=== PATIENT | male | born 1945 ===

== ENCOUNTER 2017-09-06 14:09 | Emergency (ER) | payer MEDICARE ==
[2017-09-06 14:09] VITALS: BMI 25.8
[2017-09-06 14:43] VITALS: BP 130/71; PULSE 73; RESP 16; TEMP 97.8; O2SAT 95
--- NOTE | 2017-09-06 15:19 | ED PDOC ---
Upper Extremity Pain/Injury Time Seen by Provider: 09/06/17 14:47 Chief Complaint (Nursing): Upper Extremity Problem/Injury Chief Complaint (Provider): Shoulder Pain History Per: Patient, [place] (Carmita RN at bedside for Arabic Translation) History/Exam Limitations: no limitations Onset/Duration Of Symptoms: Days (x3) Current Symptoms Are (Timing): Still Present Additional Complaint(s): Panfilo Patricia is a 71 year old right hand dominant male, who presents to the ED complaining of right shoulder pain x3 days. Patient states his current symptoms began when he was ironing 3 days ago. He states he took Oxycodone 2 days ago with relief, but denies taking any medication today for pain. He denies any associated chest pain, SOB or NEWBY. PMD: Abdoul Ashford Past Medical History Reviewed: Historical Data, Nursing Documentation, Vital Signs Vital Signs: Last Vital Signs Temp 97.8 F 09/06/17 14:39 Pulse 73 09/06/17 14:39 Resp 16 09/06/17 14:39 BP 130/71 09/06/17 14:39 Pulse Ox 95 09/06/17 14:39 - Medical History PMH: Arthritis, CAD, Diabetes, HTN, Hypercholesterolemia, Pulmonary Embolism ( 2012) - Surgical History Surgical History: Hernia Repair, Tonsillectomy - Family History Family History: States: No Known Family Hx - Living Arrangements Living Arrangements: With Family - Social History Current smoker - smoking cessation education provided: No Alcohol: None Drugs: Denies - Home Medications Home Medications: Ambulatory Orders Medication Instructions Recorded Acetaminophen [Tylenol 325mg tab] 650 mg PO Q4 PRN 10/07/15 Enoxaparin [Lovenox] 80 mg SQ Q12 10/07/15 Insulin Lispro [humALOG] 100 units SC ACHS 10/07/15 Lactated Ringer's 1,000 ml IV .Q10H 10/07/15 oxyCODONE/Acetaminophen [Percocet 1 tab PO Q6 PRN 10/07/15 5/325 mg Tab] Atorvastatin [Lipitor] 20 mg PO HS #0 tab 10/16/15 Gabapentin [Neurontin] 300 mg PO BID #0 cap 10/16/15 Losartan [Cozaar] 100 mg PO DAILY #0 tab 10/16/15 Metoprolol Tartrate [Lopressor] 25 mg PO Q12 #0 tab 02/06/16 Sertraline [Zoloft] 100 mg PO DAILY #0 tab 10/16/15 Warfarin [Coumadin] 3 mg PO DAILY #0 tab 10/16/15 metFORMIN [glucOPHAGE] 500 mg PO DAILY #0 tab 10/16/15 oxyCODONE/Acetaminophen [Percocet 1 tab PO Q6 PRN #0 tab 10/16/15 5/325 mg Tab] Dicyclomine [Bentyl] 20 mg PO TID #21 tab 11/30/15 Ondansetron ODT [Zofran ODT] 4 mg PO Q8 PRN #10 odt 11/30/15 Meclizine [Antivert] 50 mg PO BID #30 tab 07/21/16 Methylprednisolone [Medrol Dose 4 mg PO DAILY #21 mg 10/04/16 Pack (21 tabs)] Cyclobenzaprine [Cyclobenzaprine 10 mg PO TID PRN #15 tab 09/06/17 HCl] - Allergies Allergies/Adverse Reactions: Allergies Allergy/AdvReac Type Severity Reaction Status Date / Time Penicillins Allergy RASH Verified 10/07/15 15:13 Review of Systems ROS Statement: Except As Marked, All Systems Reviewed And Found Negative Constitutional: Negative for: Fever Cardiovascular: Negative for: Chest Pain Respiratory: Negative for: Cough Gastrointestinal: Negative for: Nausea, Vomiting Musculoskeletal: Positive for: Shoulder Pain (right) Physical Exam - Reviewed Nursing Documentation Reviewed: Yes Vital Signs Reviewed: Yes - Physical Exam Appears: Positive for: Non-toxic, No Acute Distress Head Exam: Positive for: ATRAUMATIC Skin: Positive for: Normal Color, Warm. Negative for: Rash Eye Exam: Positive for: Normal appearance Neck: Positive for: Normal, Painless ROM Cardiovascular/Chest: Positive for: Regular Rate, Rhythm Respiratory: Positive for: Normal Breath Sounds. 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 Sling applied to right arm. Patient has oxycodone at home. Rx given for flexeril. Patient was referred to ortho concert pianist for follow up. Scribe Attestation: Documented by Eyad Clemens, acting as a scribe for Bernie Chandler PA-C Provider Scribe Attestation: All medical record entries made by the Scribe were at my direction and personally dictated by me. I have reviewed the chart and agree that the record accurately reflects my personal performance of the history, physical exam, medical decision making, and the department course for this patient. I have also personally directed, reviewed, and agree with the discharge instructions and disposition. Procedures - Splinting Location: right arm Pre-Made Type: sling Pre-Proc Neuro Vasc Exam: normal Post-Proc Neuro Vasc Exam: normal Disposition - Clinical Impression Clinical Impression: Shoulder strain - Patient ED Disposition Is Patient to be Admitted: No Counseled Patient/Family Regarding: Studies Performed, Diagnosis, Need For Followup, Rx Given - Disposition Referrals: Austin Canchola MD [Staff Provider] - Abdoul Ashford MD [Staff Provider] - Disposition: Routine/Home Disposition Time: 16:28 Condition: STABLE Additional Instructions: Take oxycodone for severe pain, tylenol for mild to moderate pain. Take rx med as directed. Ice affected area. Follow up with primary care doctor or with orthopedist for any persistent symptoms. Prescriptions: Cyclobenzaprine [Cyclobenzaprine HCl] 10 mg PO TID PRN #15 tab PRN Reason: Muscle Pain Instructions: Shoulder Sprain (ED) Forms: [facility] (Arabic) Print Language: MALAY
--- NOTE | 2017-09-06 16:18 | RAD ---
PROCEDURE: Radiographs of the Right Shoulder HISTORY: trauma COMPARISON: Right shoulder radiographs dated 08/30/2015 FINDINGS: BONES: No fracture. JOINTS: Acromioclavicular degenerative changes. SOFT TISSUES: Normal. OTHER FINDINGS: None. IMPRESSION: No demonstrated fracture or dislocation. Degenerative changes.
== END 2017-09-06 17:55 | disposition home or self-care (01) ==
LOC: H.ER 14:09
DX: S46.911A Strain of unspecified muscle, fascia and tendon at shoulder and upper arm level, right arm, initial encounter (principal); X50.9XXA Other and unspecified overexertion or strenuous movements or postures, initial encounter; Y92.89 Other specified places as the place of occurrence of the external cause; I10 Essential (primary) hypertension; I25.10 Atherosclerotic heart disease of native coronary artery without angina pectoris; Z79.01 Long term (current) use of anticoagulants; Z79.4 Long term (current) use of insulin; Z86.711 Personal history of pulmonary embolism; E78.00 Pure hypercholesterolemia, unspecified; E11.9 Type 2 diabetes mellitus without complications; Z88.0 Allergy status to penicillin

== ENCOUNTER 2018-03-08 03:36 | Observation (INO) | payer MEDICARE ==
[2018-03-08 03:37] VITALS: BMI 25.8
[2018-03-08 04:11] LABS: BASO # 0.1 K/uL (0.0-0.2); BASO % 0.6 % (0.0-2.0); EOS # 0.4 K/uL (0.0-0.7); EOS % 4.1 % (0.0-4.0); HEMOGLOBIN 13.7 g/dL (12.0-18.0); LYMPH # 3.2 K/uL (1.0-4.3); LYMPH % 33.9 % (20.0-40.0); MEAN CELL VOLUME 87.7 fl (80.0-94.0); MEAN CORPUSCULAR HEMOGLOBIN 29.9 pg (27.0-31.0); MEAN CORPUSCULAR HGB CONC 34.1 g/dL (33.0-37.0); MEAN PLATELET VOLUME 8.2 fl (7.2-11.7); MONO # 0.7 K/uL (0.0-0.8); MONO % 7.8 % (0.0-10.0); NEUT % 53.6 % (50.0-75.0); NRBC % 0.1 % (0.0-0.0); RBC 4.57 Mil/uL (4.40-5.90); RED CELL DISTRIBUTION WIDTH 13.4 % (11.5-14.5); WHITE BLOOD COUNT 9.4 K/uL (4.8-10.8)
[2018-03-08] MEDS ORDERED: Sodium Chloride 0.9% 1,000 ML IV STA (04:25)
[2018-03-08 04:26] LABS: BLOOD UREA NITROGEN 20 mg/dl (9-20); CALCIUM 8.9 mg/dL (8.4-10.2); GFR NON-AFRICAN AMERICAN > 60
--- NOTE | 2018-03-08 04:31 | ED PDOC ---
HPI: Headache Time Seen by Provider: 03/08/18 03:42 Chief Complaint (Nursing): Headache Chief Complaint (Provider): Headache History Per: Patient History/Exam Limitations: no limitations Onset/Duration Of Symptoms: Days (1) Current Symptoms Are (Timing): Better Additional Complaint(s): 72 years old male with history of diabetes, hypertension and pulmonary embolism presents to the ED with multiple complaints. Patient reports experiencing gradual onset of palpitations, shortness of breath and mild, non thunderclap headache yesterday. He reports feeling chest pain earlier today but states it is resolved since then. Patient believes symptoms are related to running out of his diabetes and hypertension medications. He reports feeling dizziness that he describes as light headedness. PMD: Abdoul Ashford Past Medical History Reviewed: Historical Data, Nursing Documentation, Vital Signs Vital Signs: Last Vital Signs Temp 98 F 03/08/18 03:47 Pulse 70 03/08/18 03:47 Resp 16 03/08/18 03:47 BP 135/73 03/08/18 03:47 Pulse Ox 100 03/08/18 03:47 - Medical History PMH: Arthritis, CAD, Diabetes, HTN, Hypercholesterolemia, Pulmonary Embolism ( 2012) Denies: HIV, Chronic Kidney Disease - Surgical History Surgical History: Hernia Repair, Tonsillectomy - Family History Family History: States: Unknown Family Hx - Social History Current smoker - smoking cessation education provided: No Alcohol: None Drugs: Denies - Home Medications Home Medications: Ambulatory Orders Medication Instructions Recorded Acetaminophen [Tylenol 325mg tab] 650 mg PO Q4 PRN 10/07/15 oxyCODONE/Acetaminophen [Percocet 1 tab PO Q6 PRN 10/07/15 5/325 mg Tab] Atorvastatin [Lipitor] 20 mg PO HS #0 tab 10/16/15 Gabapentin [Neurontin] 300 mg PO BID #0 cap 10/16/15 Losartan [Cozaar] 100 mg PO DAILY #0 tab 10/16/15 Metoprolol Tartrate [Lopressor] 25 mg PO Q12 #0 tab 10/16/15 Sertraline [Zoloft] 100 mg PO DAILY #0 tab 10/16/15 Warfarin [Coumadin] 3 mg PO DAILY #0 tab 10/16/15 metFORMIN [glucOPHAGE] 500 mg PO DAILY #0 tab 10/16/15 tiZANidine [Zanaflex] 4 mg PO DAILY 03/08/18 traMADol [Ultram] 50 mg PO Q6 PRN 03/08/18 - Allergies Allergies/Adverse Reactions: Allergies Allergy/AdvReac Type Severity Reaction Status Date / Time Penicillins Allergy RASH Verified 10/07/15 15:13 Review of Systems ROS Statement: Except As Marked, All Systems Reviewed And Found Negative Cardiovascular: Positive for: Chest Pain, Palpitations, Light Headedness Respiratory: Positive for: Shortness of Breath Neurological: Positive for: Headache (mild), Dizziness Physical Exam - Reviewed Nursing Documentation Reviewed: Yes Vital Signs Reviewed: Yes - Physical Exam Appears: Positive for: Non-toxic, No Acute Distress Head Exam: Positive for: ATRAUMATIC, NORMOCEPHALIC Skin: Positive for: Normal Color, Warm, Dry Eye Exam: Positive for: Normal appearance, EOMI, PERRL ENT: Positive for: Normal ENT Inspection Neck: Positive for: Normal, Painless ROM Cardiovascular/Chest: Positive for: Regular Rate, Rhythm. Negative for: Murmur Respiratory: Positive for: Normal Breath Sounds. Negative for: Respiratory Distress Gastrointestinal/Abdominal: Positive for: Normal Exam, Soft. Negative for: Tenderness Back: Positive for: Normal Inspection Extremity: Positive for: Normal ROM. Negative for: Tenderness Neurologic/Psych: Positive for: Alert, Oriented. Negative for: Motor/Sensory Deficits, Aphasia, Facial Droop - Laboratory Results Result Diagrams: 03/08/18 04:07 03/08/18 04:07 - ECG ECG: Positive for: Interpreted By Me, Viewed By Me ECG Rhythm: Positive for: Normal QRS, Normal ST Segment, Sinus Bradycardia O2 Sat by Pulse Oximetry: 100 (RA) Pulse Ox Interpretation: Normal Medical Decision Making Medical Decision Making: A/P: History of diabetes, HTN and PE presents with resolved chest pain, dizziness and palpitations --Given age and history, differential includes ACS vs electrolyte imbalance vs dehydration vs anxiety --Will order blood work, EKG and chest x-ray --Reevaluation 5AM Workup so far negative, however given age and risk factors, will admit for r/o ACS. ASA given. Will require continuous cardiac monitoring and serial troponins. Case discussed with family practice resident Dr. Barlow. Scribe Attestation: Documented by Rut Angeles, acting as a scribe for Earnest Mata MD. Provider Scribe Attestation: All medical record entries made by the Scribe were at my direction and personally dictated by me. I have reviewed the chart and agree that the record accurately reflects my personal performance of the history, physical exam, medical decision making, and the department course for this patient. I have also personally directed, reviewed, and agree with the discharge instructions and disposition. Disposition - Clinical Impression Clinical Impression: Chest pain - Patient ED Disposition Is Patient to be Admitted: Yes - Disposition Disposition Time: 05:00 Condition: FAIR Forms: [employer] ([place]orese)
[2018-03-08 04:32] LABS: B-TYPE NATRIURETIC PEPTIDE 298 pg/ml (0-900)
[2018-03-08 04:44] LABS: INR 1.2 (0.9-1.2); PARTIAL THROMBOPLASTIN TIME 30.8 Seconds (25.6-37.1); PROTHROMBIN TIME 13.6 Seconds (9.8-13.1)
[2018-03-08 05:44] LABS: URINE BILIRUBIN NEGATIVE (NEGATIVE); URINE BLOOD SMALL (NEGATIVE); URINE CLARITY SLIGHTY-CLOUDY (Clear); URINE COLOR YELLOW (YELLOW); URINE GLUCOSE (UA) NEG (Normal); URINE LEUKOCYTE ESTERASE NEG Leu/uL (Negative); URINE PROTEIN NEGATIVE (NEGATIVE); URINE UROBILINOGEN 0.2-1.0 mg/dL (0.2-1.0)
--- NOTE | 2018-03-08 08:12 | RAD ---
PROCEDURE: CHEST RADIOGRAPH, 1 VIEW HISTORY: palpitations COMPARISON: Chest radiographs 07/21/2016. FINDINGS: LUNGS: No acute cardiopulmonary disease appreciated. PLEURA: No pneumothorax or pleural fluid seen. CARDIOVASCULAR: Normal. OSSEOUS STRUCTURES: No significant abnormalities. VISUALIZED UPPER ABDOMEN: Normal. OTHER FINDINGS: None. IMPRESSION: No interval acute cardiopulmonary disease appreciated.
[2018-03-08] MEDS ORDERED: Potassium Chloride 20 mEq ER Tab PO ONE (08:32)
--- NOTE | 2018-03-08 08:50 | CP.PCM.HP ---
<Madhu Hancock - Last Filed: 03/08/18 12:26> History of Present Illness - History of Present Illness History of Present Illness: This is 72 y/o male with PMH of PE s/p IVC in 2013, HTN, HLD, DMII and depression admitted to [facility] for evaluation and treatment of headache and chest pain. Patient reports chronic headache on and off since last 3 months, but constant since last 3 days, Diffuse pain, 7/10 severity, non radiating, and associated with nausea. Patient took some tylenol but helped for few hours.( Patient reports minor head trauma at home a week ago). Chest pain is intermittent since last 3 months, non radiating, 5/10, changes with respiration. Patient denies any current SOB, Dizziness, blurred vision, palpitations, weakness, or urinary symptoms. Patient reports he is on warfarin but ran out of his meds this week. [employer]# [id number] PMD: [facility] PMH:PE s/p IVC in 2013, HTN, HLD, DMII and depression PSH: IVC filter 2013, Cataracts 2012, Inguinal hernia repair 2006, Left total hip replacement 2015 Allg: Penicillin (Rash) Meds: See med recs SH: Social alcohol use, denies smoking or illicit drug use FH: Positive for DM, HTN and colon cancer ROS: As per HPI ED Course: VS:Tm 98, HR 70, BP 135/75, Sat 100% RA CBC: WNL CMP: Significant for K+ 3.3 PT/INR/PTT: 13.6/30.8/1.2 Troponin negative x 1 Pro BNP 298, wnl UA: Small urine blood, 5 RBC EKG: Sinus Hiram, Occasional PVC CXR: No acute disease S/p Aspirin, Toradol, and IVF Present on Admission - Present on Admission Any Indicators Present on Admission: No History of DVT/PE: Yes History of Uncontrolled Diabetes: No Urinary Catheter: No Decubitus Ulcer Present: No Past Patient History - Infectious Disease Hx of Infectious Diseases: None - Past Medical History & Family History Past Medical History?: Yes - Past Social History Alcohol: None Drugs: Denies - CARDIAC Hx Hypercholesterolemia: Yes Hx Hypertension: Yes - PULMONARY Hx Pulmonary Embolism: Yes (2012) - NEUROLOGICAL Hx Neurological Disorder: No - HEENT Hx HEENT Problems: Yes Hx Cataracts: Yes - RENAL Hx Chronic Kidney Disease: No - ENDOCRINE/METABOLIC Hx Endocrine Disorders: Yes Hx Diabetes Mellitus Type 2: Yes - HEMATOLOGICAL/ONCOLOGICAL Hx Human Immunodeficiency Virus (HIV): No - INTEGUMENTARY Hx Dermatological Problems: No - MUSCULOSKELETAL/RHEUMATOLOGICAL Hx Arthritis: Yes - GASTROINTESTINAL Hx Gastrointestinal Disorders: No - GENITOURINARY/GYNECOLOGICAL Hx Genitourinary Disorders: Yes Hx Prostate Problems: Yes (Prostate Surgery 1998) Other/Comment: Syphillis - when he was 12 yrs old. - PSYCHIATRIC Hx Psychophysiologic Disorder: No Hx Substance Use: No - SURGICAL HISTORY Hx Tonsillectomy: Yes - ANESTHESIA Hx Anesthesia: Yes Hx Anesthesia Reactions: No Hx Malignant Hyperthermia: No Meds Allergies/Adverse Reactions: Allergies Allergy/AdvReac Type Severity Reaction Status Date / Time Penicillins Allergy RASH Verified 10/07/15 15:13 Physical Exam - Constitutional Appears: No Acute Distress - Head Exam Head Exam: NORMAL INSPECTION - Eye Exam Eye Exam: EOMI, Normal appearance, PERRL Pupil Exam: NORMAL ACCOMODATION - ENT Exam ENT Exam: Mucous Membranes Moist - Neck Exam Neck exam: Positive for: Normal Inspection - Respiratory Exam Respiratory Exam: Clear to Auscultation Bilateral, NORMAL BREATHING PATTERN - Cardiovascular Exam Cardiovascular Exam: REGULAR RHYTHM, +S1, +S2 - GI/Abdominal Exam GI & Abdominal Exam: Normal Bowel Sounds, Soft. absent: Hernia, Tenderness - Extremities Exam Extremities exam: Positive for: normal inspection. Negative for: normal capillary refill - Back Exam Back exam: NORMAL INSPECTION. absent: CVA tenderness (L), CVA tenderness (R) - Neurological Exam Neurological exam: Alert, CN II-XII Intact, Oriented x3, Reflexes Normal - Psychiatric Exam Psychiatric exam: Anxious - Skin Skin Exam: Cyanosis, Dry, Intact, Normal Color, Warm Results - Vital Signs Recent Vital Signs: Last Vital Signs Temp 98 F 03/08/18 03:47 Pulse 56 L 03/08/18 05:45 Resp 19 03/08/18 05:45 BP 139/68 03/08/18 05:45 Pulse Ox 100 03/08/18 05:45 - Labs Result Diagrams: 03/08/18 04:07 03/08/18 04:07 Labs: Laboratory Results - last 24 hr 03/08/18 03/08/18 03/08/18 04:04 04:07 04:07 WBC 9.4 D RBC 4.57 Hgb 13.7 Hct 40.1 MCV 87.7 MCH 29.9 MCHC 34.1 RDW 13.4 Plt Count 198 MPV 8.2 Neut % (Auto) 53.6 Lymph % (Auto) 33.9 [place] % (Auto) 7.8 Eos % (Auto) 4.1 H Baso % (Auto) 0.6 Neut # (Auto) 5.0 Lymph # (Auto) 3.2 [place] # (Auto) 0.7 Eos # (Auto) 0.4 Baso # (Auto) 0.1 PT INR APTT Sodium 144 Potassium 3.3 L Chloride 109 H Carbon Dioxide 26 Anion Gap 12 BUN 20 Creatinine 0.8 Est GFR ( Amer) > 60 Est GFR (Non-Af Amer) > 60 POC Glucose (mg/dL) 134 H Random Glucose 136 H Calcium 8.9 Troponin I 0.0320 NT-Pro-B Natriuret Pep 298 Urine Color Urine Clarity Urine pH Ur Specific [place] Urine Protein Urine Glucose (UA) Urine Ketones Urine Blood Urine Nitrate Urine Bilirubin Urine Urobilinogen Ur Leukocyte Esterase Urine RBC (Auto) Urine Microscopic WBC 03/08/18 03/08/18 04:07 05:18 WBC RBC Hgb Hct MCV MCH MCHC RDW Plt Count MPV Neut % (Auto) Lymph % (Auto) [place] % (Auto) Eos % (Auto) Baso % (Auto) Neut # (Auto) Lymph # (Auto) [place] # (Auto) Eos # (Auto) Baso # (Auto) PT 13.6 H INR 1.2 APTT 30.8 Sodium Potassium Chloride Carbon Dioxide Anion Gap BUN Creatinine Est GFR ( Amer) Est GFR (Non-Af Amer) POC Glucose (mg/dL) Random Glucose Calcium Troponin I NT-Pro-B Natriuret Pep Urine Color Yellow Urine Clarity Slighty-cloudy Urine pH 5.0 Ur Specific [place] 1.024 Urine Protein Negative Urine Glucose (UA) Neg Urine Ketones Negative Urine Blood Small Urine Nitrate Negative Urine Bilirubin Negative Urine Urobilinogen 0.2-1.0 Ur Leukocyte Esterase Neg Urine RBC (Auto) 5 H Urine Microscopic WBC 1 Assessment & Plan - Assessment and Plan (Free Text) Assessment: 72 y/o male with PMH of PE s/p IVC in 2013, HTN, HLD, DMII and depression admitted to [facility] for evaluation and treatment of chronic headache and chest pain. Chest pain, R/o ACS vs PE - Follow up repeat EKG - Follow up next 2 troponin - Follow up CTA to r/o any PE, hx of PE, IVC F, didn't take warfarin this week Headache - Possiblly tension headache vs trigeminal neuralgia vs Cluster headache ( History of minor head trauma) - CT Head w/o Cont to r/o any acute vs chronic changes - Follow up ESR History of PE, S/p IVC 2013 - PT/INR/PTT: 13.6/30.8/1.2 - Home med Warfarin 3mg PO (Patient is not cleared if he took his warfarin this week) - C/w Lovenox 75mg SC Q12H - C/w Warfarin 3mg daily - F/u PT/INR tomorrow HTN - Chronic, Controlled - C/w home meds: Metoprolol 25mg Q12, Losartan 100mg daily HLD - Lipitor 20 daily Pre-diabetes - Metformin 500mg daily, held due to imaging work up Hx of Depression - Zoloft 100mg daily DVT PPx - History of PE - C/w Lovenox 75mg SC Q12H - C/w Warfarin 3mg daily - F/u PT/INR tomorrow <Mayte Amador - Last Filed: 03/08/18 13:05> Results - Vital Signs Recent Vital Signs: Last Vital Signs Temp 97.6 F 03/08/18 12:50 Pulse 55 L 03/08/18 12:50 Resp 18 03/08/18 12:50 BP 136/78 03/08/18 12:50 Pulse Ox 97 03/08/18 12:50 - Labs Result Diagrams: 03/08/18 04:07 03/08/18 04:07 Labs: Laboratory Results - last 24 hr 03/08/18 03/08/18 03/08/18 04:04 04:07 04:07 WBC 9.4 D RBC 4.57 Hgb 13.7 Hct 40.1 MCV 87.7 MCH 29.9 MCHC 34.1 RDW 13.4 Plt Count 198 MPV 8.2 Neut % (Auto) 53.6 Lymph % (Auto) 33.9 [place] % (Auto) 7.8 Eos % (Auto) 4.1 H Baso % (Auto) 0.6 Neut # (Auto) 5.0 Lymph # (Auto) 3.2 [place] # (Auto) 0.7 Eos # (Auto) 0.4 Baso # (Auto) 0.1 ESR PT INR APTT Sodium 144 Potassium 3.3 L Chloride 109 H Carbon Dioxide 26 Anion Gap 12 BUN 20 Creatinine 0.8 Est GFR ( Amer) > 60 Est GFR (Non-Af Amer) > 60 POC Glucose (mg/dL) 134 H Random Glucose 136 H Calcium 8.9 Troponin I 0.0320 NT-Pro-B Natriuret Pep 298 Urine Color Urine Clarity Urine pH Ur Specific [place] Urine Protein Urine Glucose (UA) Urine Ketones Urine Blood Urine Nitrate Urine Bilirubin Urine Urobilinogen Ur Leukocyte Esterase Urine RBC (Auto) Urine Microscopic WBC 03/08/18 03/08/18 03/08/18 04:07 05:18 11:54 WBC RBC Hgb Hct MCV MCH MCHC RDW Plt Count MPV Neut % (Auto) Lymph % (Auto) [place] % (Auto) Eos % (Auto) Baso % (Auto) Neut # (Auto) Lymph # (Auto) [place] # (Auto) Eos # (Auto) Baso # (Auto) ESR PT 13.6 H INR 1.2 APTT 30.8 Sodium Potassium Chloride Carbon Dioxide Anion Gap BUN Creatinine Est GFR ( Amer) Est GFR (Non-Af Amer) POC Glucose (mg/dL) Random Glucose Calcium Troponin I 0.0260 NT-Pro-B Natriuret Pep Urine Color Yellow Urine Clarity Slighty-cloudy Urine pH 5.0 Ur Specific [place] 1.024 Urine Protein Negative Urine Glucose (UA) Neg Urine Ketones Negative Urine Blood Small Urine Nitrate Negative Urine Bilirubin Negative Urine Urobilinogen 0.2-1.0 Ur Leukocyte Esterase Neg Urine RBC (Auto) 5 H Urine Microscopic WBC 1 03/08/18 11:54 WBC RBC Hgb Hct MCV MCH MCHC RDW Plt Count MPV Neut % (Auto) Lymph % (Auto) [place] % (Auto) Eos % (Auto) Baso % (Auto) Neut # (Auto) Lymph # (Auto) [place] # (Auto) Eos # (Auto) Baso # (Auto) ESR 11 PT INR APTT Sodium Potassium Chloride Carbon Dioxide Anion Gap BUN Creatinine Est GFR ( Amer) Est GFR (Non-Af Amer) POC Glucose (mg/dL) Random Glucose Calcium Troponin I NT-Pro-B Natriuret Pep Urine Color Urine Clarity Urine pH Ur Specific [place] Urine Protein Urine Glucose (UA) Urine Ketones Urine Blood Urine Nitrate Urine Bilirubin Urine Urobilinogen Ur Leukocyte Esterase Urine RBC (Auto) Urine Microscopic WBC Attending/Attestation - Attestation I have personally seen and examined this patient.: Yes I have fully participated in the care of the patient.: Yes I have reviewed all pertinent clinical information: Yes Notes (Text): 03/08/18 13:03 Attending Note ATTESTATION Patient seen and examined. Case discussed with the resident. Agree with findings and plan. PEÑA 3 months, worse past 3 days. Head trauma [address] r/ o sdh, mass, ESR consider temporal arteritis. Chest CTA r/o PE - hx of same off warfarin for a few days.
[2018-03-08] MEDS: Enoxaparin 80 mg Syringe SC SCH ×2 (10:59→21:39)
[2018-03-08] MEDS ORDERED: Sodium Chloride 0.9% 500 ML IV SCH (11:15)
[2018-03-08] MEDS ORDERED: Sodium Chloride 0.9% 50 ML IV ONE (12:14)
[2018-03-08] MEDS ORDERED: Iodixanol 320 MG/ML 100 ML BOTTLE IV ONE (12:14)
--- NOTE | 2018-03-08 13:10 | CT ---
PROCEDURE: CT HEAD WITHOUT CONTRAST. HISTORY: Headache COMPARISON: 07/21/2016. TECHNIQUE: Axial computed tomography images were obtained through the head/brain without intravenous contrast. Radiation dose: Total exam DLP = 858.84 mGy-cm. This CT exam was performed using one or more of the following dose reduction techniques: Automated exposure control, adjustment of the mA and/or kV according to patient size, and/or use of iterative reconstruction technique. FINDINGS: HEMORRHAGE: No intracranial hemorrhage. BRAIN: There are mild chronic microangiopathic changes. There is no mass, mass effect or abnormal extra-axial fluid collection. VENTRICLES: There is mild age-related global parenchymal volume loss and proportionate enlargement of the ventricles and cortical sulci. CALVARIUM: The skull base and calvarium are normal. PARANASAL SINUSES: There is moderate mucoperiosteal thickening in the paranasal sinuses, worse in the ethmoid sinuses. MASTOID AIR CELLS: Predominantly clear. OTHER FINDINGS: None. IMPRESSION: No acute intracranial abnormality. Mild chronic microangiopathic changes and mild age-related global parenchymal volume loss. Chronic pansinusitis, worse in the ethmoid air cells.
--- NOTE | 2018-03-08 14:08 | CT ---
PROCEDURE: CT Chest with contrast (Pulmonary Angiogram) HISTORY: Chest pain, Hx of PE, S/p IVC. Not on warfarin COMPARISON: Noncontrast chest CT 02/15/2015. TECHNIQUE: Axial computed tomography images were obtained of the chest in the pulmonary arterial phase of enhancement. Coronal and sagittal reformatted images were created and reviewed. Intravenous contrast dose: Visipaque 320, 90.3 cc. Radiation dose: Total exam DLP = 398.39 mGy-cm. This CT exam was performed using one or more of the following dose reduction techniques: Automated exposure control, adjustment of the mA and/or kV according to patient size, and/or use of iterative reconstruction technique. FINDINGS: PULMONARY ARTERIES: Unremarkable. No pulmonary embolism. AORTA: No acute findings. No thoracic aortic aneurysm. LUNGS: Minimal posterior right apical fibrosis reiterated. No definitive mass or airspace disease. Central airways are clear as well. Stable elevated left hemidiaphragm. PLEURAL SPACES: Unremarkable. No effusion or pneuomothorax. HEART: The thoracic inlet appears unremarkable. Borderline cardiomegaly. No significant pericardial effusion. LYMPH NODES: No lymphadenopathy. BONES, CHEST WALL: Unremarkable. No fracture or destructive lesion OTHER FINDINGS: Multiple left renal cysts including 8.3 cm upper midpole left renal cyst incompletely captured in this examination. IMPRESSION: 1. No evidence of pulmonary pulmonary embolus as discussed above. 2. Chronic fibrosis minimally noted posterior right apex. 3. No acute infiltrate, pleural or pericardial effusion. Borderline cardiomegaly noted.
[2018-03-08] MEDS ORDERED: Pneumococcal 23-Valent Vaccine IM ONE (16:56)
[2018-03-08] MEDS ORDERED: Enoxaparin 40 mg Syringe SC SCH (22:00)
[2018-03-09 07:11] LABS: BASO % 0.5 % (0.0-2.0); EOS # 0.4 K/uL (0.0-0.7); EOS % 6.4 % (0.0-4.0); HEMOGLOBIN 14.1 g/dL (12.0-18.0); LYMPH # 2.4 K/uL (1.0-4.3); LYMPH % 38.7 % (20.0-40.0); MEAN CELL VOLUME 88.4 fl (80.0-94.0); MEAN CORPUSCULAR HGB CONC 33.9 g/dL (33.0-37.0); MEAN PLATELET VOLUME 8.6 fl (7.2-11.7); MONO # 0.5 K/uL (0.0-0.8); MONO % 8.8 % (0.0-10.0); NEUT # 2.8 K/uL (1.8-7.0); NEUT % 45.6 % (50.0-75.0); NRBC % 0.1 % (0.0-0.0); RBC 4.7 Mil/uL (4.40-5.90); RED CELL DISTRIBUTION WIDTH 13.3 % (11.5-14.5); WHITE BLOOD COUNT 6.1 K/uL (4.8-10.8)
[2018-03-09 07:27] LABS: PROTHROMBIN TIME 13.7 Seconds (9.8-13.1)
[2018-03-09 07:28] LABS: INR 1.2 (0.9-1.2); PARTIAL THROMBOPLASTIN TIME 37.7 Seconds (25.6-37.1)
[2018-03-09 07:39] LABS: BLOOD UREA NITROGEN 19 mg/dl (9-20); CALCIUM 8.9 mg/dL (8.4-10.2); GFR NON-AFRICAN AMERICAN > 60
--- NOTE | 2018-03-09 07:44 | CP.PCM.PN ---
<Madhu Hancock - Last Filed: 03/09/18 11:51> Subjective - Date & Time of Evaluation Date of Evaluation: 03/09/18 Time of Evaluation: 07:00 - Subjective Subjective: Patient seen and examined this morning at bedside, NAD. Patient reports no headache this morning, last night he was given tylenol for headache and its completely resolved. Denies any chest pain this morning. Patient is tolerating PO, ambulating, denies any dizziness, SOB, abdominal pain, urinary symptoms or weakness. Objective - Vital Signs/Intake and Output Vital Signs (last 24 hours): Temp Pulse Resp BP Pulse Ox 97.5 F L 60 16 142/73 99 03/09/18 05:00 03/09/18 05:00 03/09/18 05:00 03/09/18 05:00 03/09/18 05:00 - Medications Medications: Current Medications Atorvastatin Calcium (Lipitor) 20 mg PO HS [facility] Last Admin: 03/08/18 21:37 Dose: 20 mg Enoxaparin Sodium (Lovenox) 75 mg SC Q12 [facility] PRN Reason: Protocol Last Admin: 03/08/18 21:39 Dose: 75 mg Gabapentin (Neurontin) 300 mg PO BID [facility] Last Admin: 03/08/18 18:55 Dose: 300 mg Sodium Chloride (Sodium Chloride 0.9%) 500 mls @ 999 mls/hr IV .Q31M [facility] Last Admin: 03/08/18 11:40 Dose: 999 mls/hr Losartan Potassium (Cozaar) 100 mg PO DAILY [facility] Last Admin: 03/08/18 10:59 Dose: 100 mg Metformin HCl (Glucophage) 500 mg PO DAILY [facility] Last Admin: 03/08/18 09:12 Dose: 500 mg Metoprolol Tartrate (Lopressor) 25 mg PO Q12 [facility] Last Admin: 03/08/18 21:37 Dose: 25 mg Sertraline HCl (Zoloft) 100 mg PO DAILY [facility] Last Admin: 03/08/18 10:58 Dose: 100 mg Warfarin Sodium (Coumadin) 3 mg PO HS [facility] PRN Reason: Protocol Last Admin: 03/08/18 21:36 Dose: 3 mg - Labs Labs: 03/09/18 06:30 03/09/18 06:30 PT 13.7 Seconds (9.8-13.1) H 03/09/18 06:30 INR 1.2 (0.9-1.2) 03/09/18 06:30 APTT 37.7 Seconds (25.6-37.1) H D 03/09/18 06:30 - Constitutional Appears: No Acute Distress - Head Exam Head Exam: NORMAL INSPECTION - Eye Exam Eye Exam: Normal appearance, PERRL Pupil Exam: NORMAL ACCOMODATION - ENT Exam ENT Exam: Mucous Membranes Moist - Respiratory Exam Respiratory Exam: Clear to Ausculation Bilateral, NORMAL BREATHING PATTERN - Cardiovascular Exam Cardiovascular Exam: REGULAR RHYTHM, +S1, +S2 - GI/Abdominal Exam GI & Abdominal Exam: Soft, Normal Bowel Sounds - Extremities Exam Extremities Exam: Normal Capillary Refill, Normal Inspection - Back Exam Back Exam: NORMAL INSPECTION. absent: CVA tenderness (L), CVA tenderness (R) - Neurological Exam Neurological Exam: Alert, Awake, CN II-XII Intact, Oriented x3 - Psychiatric Exam Psychiatric exam: Normal Affect - Skin Skin Exam: Normal Color Assessment and Plan - Assessment and Plan (Free Text) Assessment: 72 y/o male with PMH of PE s/p IVC in 2013, HTN, HLD, DMII and depression admitted to [facility] for evaluation and treatment of chronic headache and chest pain. Chest pain, Non-cardiac - Repeat EKG reviewed, no changes from previous EKG - Negative troponin x3 - CTA reviewed, no PE or acute changes Headache - Possiblly tension headache vs trigeminal neuralgia vs Cluster headache ( History of minor head trauma) - CT Head w/o Cont; no acute findings or bleeding - ESR: 11 History of PE, S/p IVC 2013 - PT/INR/PTT: 13.6/30.8/1.2 on admission - Home med Warfarin 3mg PO (Patient is not cleared if he took his warfarin this week) - C/w Lovenox 75mg SC Q12H - Warfarin 3mg daily changed today to 7.5mg this evening - F/u PT/INR tomorrow HTN - Chronic, Controlled - C/w home meds: Metoprolol 25mg Q12, Losartan 100mg daily HLD - Lipitor 20 daily Pre-diabetes - Metformin 500mg daily Hx of Depression - Zoloft 100mg daily DVT PPx - History of PE - C/w Lovenox 75mg SC Q12H - C/w Warfarin 7.5mg this evening - F/u PT/INR tomorrow <Mayte Amador - Last Filed: 03/10/18 08:31> Objective - Vital Signs/Intake and Output Vital Signs (last 24 hours): Temp Pulse Resp BP Pulse Ox 97.3 F L 62 20 144/75 99 03/10/18 08:00 03/10/18 08:00 03/10/18 08:00 03/10/18 08:00 03/10/18 08:00 - Medications Medications: Current Medications Al Hydrox/Mg Hydrox/Simethicone (Maalox Plus 30 Ml) 30 ml PO Q4 PRN PRN Reason: Indigestion / Heartburn Last Admin: 03/09/18 19:00 Dose: 30 ml Atorvastatin Calcium (Lipitor) 20 mg PO HS [facility] Last Admin: 03/09/18 21:39 Dose: 20 mg Enoxaparin Sodium (Lovenox) 75 mg SC Q12 [facility] PRN Reason: Protocol Last Admin: 03/09/18 20:34 Dose: 75 mg Gabapentin (Neurontin) 300 mg PO BID [facility] Last Admin: 03/09/18 16:28 Dose: 300 mg Losartan Potassium (Cozaar) 100 mg PO DAILY [facility] Last Admin: 03/09/18 09:08 Dose: 100 mg Metformin HCl (Glucophage) 500 mg PO DAILY [facility] Last Admin: 03/09/18 09:06 Dose: 500 mg Metoprolol Tartrate (Lopressor) 25 mg PO Q12 [facility] Last Admin: 03/09/18 20:35 Dose: 25 mg Sertraline HCl (Zoloft) 100 mg PO DAILY [facility] Last Admin: 03/09/18 09:06 Dose: 100 mg Warfarin Sodium (Coumadin) 7.5 mg PO QD5 [facility] PRN Reason: Protocol Last Admin: 03/09/18 17:59 Dose: 7.5 mg - Labs Labs: 03/10/18 06:20 03/10/18 06:20 PT 15.9 Seconds (9.8-13.1) H 03/10/18 06:20 INR 1.4 (0.9-1.2) H 03/10/18 06:20 APTT 39.4 Seconds (25.6-37.1) H 03/10/18 06:20 Attending/Attestation - Attestation I have personally seen and examined this patient.: Yes I have fully participated in the care of the patient.: Yes I have reviewed all pertinent clinical information, including history, physical exam and plan: Yes
[2018-03-09] MEDS: Enoxaparin 80 mg Syringe SC SCH ×2 (09:07→20:34)
--- NOTE | 2018-03-09 12:55 | CARD ---
APPROVED REPORT EKG Measurement Heart [id number] [place] [id number] <Conclusion> Sinus bradycardia with occasional premature ventricular complexes Otherwise normal ECG
--- NOTE | 2018-03-09 12:59 | CARD ---
APPROVED REPORT EKG Measurement Heart [id number] [place] [id number] [id number] <Conclusion> Normal sinus rhythm Normal ECG
--- NOTE | 2018-03-09 16:12 | CP.PCM.PCO ---
Physician Communication Note - Physician Communication Note Physician Communication Note: Paged by nurse patient had chest pain that lasted 20 seconds, vitals stable Assessment/Plan - Assessment and Plan (Free Text) Assessment: Patient seen walking around the hallway with his . Accompanied patient back to his room, patient reports the chest pain was in the epigastric area radiating to the left, recurrent, intermittent. Usually occurs after eating or when he hasn't gone to the gym for a few days. Denies chest pain, nausea, vomiting, diarrhea, weakness or dizziness. monitoring specialist with normal sinus rhythm at rate 69 bpm, no ST-T changes. -physical exam: -General: in zenon cute distress, ambulating without difficulty, AAO x 3 -Cardiac: normal S1 S2, no murmurs/rubs/gallops -Lungs: clear to auscultation -Abd: normal bowel sounds, no distention or tenderness to palpation Plan: -ordered serial troponin -Maalox 30ml PRN - Date & Time Date: 03/09/18 Time: 16:16
[2018-03-09] MEDS: Alum-Mag Hydrox-Simethicone Susp (30 mL) PO PRN (19:00)
[2018-03-10 07:10] LABS: BASO % 0.5 % (0.0-2.0); EOS # 0.4 K/uL (0.0-0.7); EOS % 6.3 % (0.0-4.0); HEMOGLOBIN 14.1 g/dL (12.0-18.0); LYMPH # 2.6 K/uL (1.0-4.3); LYMPH % 40.5 % (20.0-40.0); MEAN CELL VOLUME 88.5 fl (80.0-94.0); MEAN CORPUSCULAR HEMOGLOBIN 29.8 pg (27.0-31.0); MEAN CORPUSCULAR HGB CONC 33.7 g/dL (33.0-37.0); MEAN PLATELET VOLUME 8.7 fl (7.2-11.7); MONO # 0.6 K/uL (0.0-0.8); MONO % 8.8 % (0.0-10.0); NEUT # 2.8 K/uL (1.8-7.0); NEUT % 43.9 % (50.0-75.0); RBC 4.73 Mil/uL (4.40-5.90); RED CELL DISTRIBUTION WIDTH 13.3 % (11.5-14.5); WHITE BLOOD COUNT 6.5 K/uL (4.8-10.8)
[2018-03-10 07:23] LABS: BLOOD UREA NITROGEN 16 mg/dl (9-20); CALCIUM 8.8 mg/dL (8.4-10.2); GFR NON-AFRICAN AMERICAN > 60
[2018-03-10 07:42] LABS: INR 1.4 (0.9-1.2); PARTIAL THROMBOPLASTIN TIME 39.4 Seconds (25.6-37.1); PROTHROMBIN TIME 15.9 Seconds (9.8-13.1)
--- NOTE | 2018-03-10 08:44 | CP.PCM.PN ---
<Janeenheidi RamosLuisito - Last Filed: 03/10/18 12:43> Subjective - Date & Time of Evaluation Date of Evaluation: 03/10/18 Time of Evaluation: 08:41 - Subjective Subjective: Patient seen and examined at bedside this morning, patient reports feeling better, NAD, denies chest pain, headache, palpitations, nausea, weakness, abdominal pain, no urinary symptoms or SOB. Nursing notes reviewed and found patient with episodic bradycadia down to HR thirties while sleeping, HR this morning 54 and asymptomatic. Patient is tolerating PO and ambulating. Objective - Vital Signs/Intake and Output Vital Signs (last 24 hours): Temp Pulse Resp BP Pulse Ox 97.3 F L 62 20 144/75 99 03/10/18 08:00 03/10/18 08:00 03/10/18 08:00 03/10/18 08:00 03/10/18 08:00 - Medications Medications: Current Medications Al Hydrox/Mg Hydrox/Simethicone (Maalox Plus 30 Ml) 30 ml PO Q4 PRN PRN Reason: Indigestion / Heartburn Last Admin: 03/09/18 19:00 Dose: 30 ml Atorvastatin Calcium (Lipitor) 20 mg PO HS [facility] Last Admin: 03/09/18 21:39 Dose: 20 mg Enoxaparin Sodium (Lovenox) 75 mg SC Q12 [facility] PRN Reason: Protocol Last Admin: 03/09/18 20:34 Dose: 75 mg Gabapentin (Neurontin) 300 mg PO BID [facility] Last Admin: 03/09/18 16:28 Dose: 300 mg Losartan Potassium (Cozaar) 100 mg PO DAILY [facility] Last Admin: 03/09/18 09:08 Dose: 100 mg Metformin HCl (Glucophage) 500 mg PO DAILY [facility] Last Admin: 03/09/18 09:06 Dose: 500 mg Metoprolol Tartrate (Lopressor) 25 mg PO Q12 [facility] Last Admin: 03/09/18 20:35 Dose: 25 mg Sertraline HCl (Zoloft) 100 mg PO DAILY [facility] Last Admin: 03/09/18 09:06 Dose: 100 mg Warfarin Sodium (Coumadin) 7.5 mg PO QD5 [facility] PRN Reason: Protocol Last Admin: 03/09/18 17:59 Dose: 7.5 mg - Labs Labs: 03/10/18 06:20 03/10/18 06:20 PT 15.9 Seconds (9.8-13.1) H 03/10/18 06:20 INR 1.4 (0.9-1.2) H 03/10/18 06:20 APTT 39.4 Seconds (25.6-37.1) H 03/10/18 06:20 - Constitutional Appears: Well, No Acute Distress - Head Exam Head Exam: NORMOCEPHALIC - Eye Exam Eye Exam: EOMI, Normal appearance Pupil Exam: PERRL - ENT Exam ENT Exam: Mucous Membranes Moist, Normal Exam - Neck Exam Neck Exam: Full ROM, Normal Inspection - Respiratory Exam Respiratory Exam: Clear to Ausculation Bilateral, NORMAL BREATHING PATTERN - Cardiovascular Exam Cardiovascular Exam: REGULAR RHYTHM, +S1, +S2. absent: JVD, Rubs, Murmur - GI/Abdominal Exam GI & Abdominal Exam: Normal Bowel Sounds. absent: Tenderness - Extremities Exam Extremities Exam: Normal Inspection - Skin Skin Exam: Normal Color. absent: Pallor Assessment and Plan - Assessment and Plan (Free Text) Assessment: 72 y/o male with PMH of PE s/p IVC in 2013, HTN, HLD, DMII and depression admitted with cc: headache and chest pain, found to have subtherapeutic INR after several day of coumadin non-adherence. Plan: Subtherapeutic INR -Hx of DVT, PE, and IVC filter - INR today 1.4 - Home med Warfarin 3mg PO, patient states he did not take his warfarin for few days at home - Warfarin dose increased yesterday to 7.5mg to reach theraputic INR - C/w Lovenox 75mg SC Q12H while bridging to warfarin - Will F/u PT/INR tomorrow Chest pain, Non-cardiac -resolved - Repeat EKG reviewed. - Negative troponin x3 - CTA reviewed, no PE or acute changes Headache -resolved - Possiblly tension headache vs trigeminal neuralgia vs Cluster headache - CT Head w/o Cont; no acute findings or bleeding - ESR: 11 Bradycardia -Possibly caused by Metoprolol 25 PO bid for HTN, BP controlled, will decrease Metoprolol to 25 QD in AM. -continue monitoring HTN - Chronic, Controlled - C/w home meds: Metoprolol 25mg QD in AM, Losartan 100mg daily HLD - Lipitor 20 daily Pre-diabetes - Metformin 500mg daily Hx of Depression - Zoloft 100mg daily DVT PPx/Hx of PE - C/w Lovenox 75mg SC Q12H - C/w Warfarin 7.5mg - F/u PT/INR tomorrow <Mayte Amador - Last Filed: 03/11/18 08:12> Objective - Vital Signs/Intake and Output Vital Signs (last 24 hours): Temp Pulse Resp BP Pulse Ox 97.5 F L 62 18 155/70 H 100 03/11/18 04:48 03/11/18 04:48 03/11/18 04:48 03/11/18 04:48 03/11/18 04:48 - Medications Medications: Current Medications Al Hydrox/Mg Hydrox/Simethicone (Maalox Plus 30 Ml) 30 ml PO Q4 PRN PRN Reason: Indigestion / Heartburn Last Admin: 03/10/18 09:06 Dose: 30 ml Atorvastatin Calcium (Lipitor) 20 mg PO HS [facility] Last Admin: 03/10/18 21:06 Dose: 20 mg Enoxaparin Sodium (Lovenox) 75 mg SC Q12 [facility] PRN Reason: Protocol Last Admin: 03/10/18 21:05 Dose: 75 mg Gabapentin (Neurontin) 300 mg PO BID [facility] Last Admin: 03/10/18 17:51 Dose: 300 mg Losartan Potassium (Cozaar) 100 mg PO DAILY [facility] Last Admin: 03/10/18 09:03 Dose: 100 mg Metformin HCl (Glucophage) 500 mg PO DAILY [facility] Last Admin: 03/10/18 09:04 Dose: 500 mg Metoprolol Tartrate (Lopressor) 25 mg PO DAILY [facility] Sertraline HCl (Zoloft) 100 mg PO DAILY [facility] Last Admin: 03/10/18 09:05 Dose: 100 mg Warfarin Sodium (Coumadin) 7.5 mg PO QD5 [facility] PRN Reason: Protocol Last Admin: 03/10/18 17:12 Dose: 7.5 mg - Labs Labs: 03/10/18 06:20 03/10/18 06:20 PT 26.4 Seconds (9.8-13.1) H D 03/11/18 04:20 INR 2.3 (0.9-1.2) H D 03/11/18 04:20 APTT 39.4 Seconds (25.6-37.1) H 03/10/18 06:20 Attending/Attestation - Attestation I have personally seen and examined this patient.: Yes I have fully participated in the care of the patient.: Yes I have reviewed all pertinent clinical information, including history, physical exam and plan: Yes Notes (Text): 03/11/18 08:11 Patient seen and examined. No complaints this AM. Continue lovenox and warfarin. Not therapeutic as yet on warfarin.
[2018-03-10] MEDS: Enoxaparin 80 mg Syringe SC SCH ×2 (09:05→21:05)
[2018-03-10] MEDS: Alum-Mag Hydrox-Simethicone Susp (30 mL) PO PRN (09:06)
[2018-03-11 06:03] LABS: INR 2.3 (0.9-1.2); PROTHROMBIN TIME 26.4 Seconds (9.8-13.1)
[2018-03-11 08:18] VITALS: RESP 20; O2SAT 95
[2018-03-11] MEDS: Enoxaparin 80 mg Syringe SC SCH (09:11)
[2018-03-11 12:31] VITALS: BP 147/63; PULSE 72; TEMP 98.2
--- NOTE | 2018-03-11 14:49 | CP.PCM.DIS ---
Provider - Provider Date of Admission: 03/08/18 05:07 Attending physician: Isela Beltran MD Primary care physician: Abdoul Ashford MD Time Spent in preparation of Discharge (in minutes): 35 Diagnosis - Discharge Diagnosis (1) Subtherapeutic international normalized ratio (INR) Status: Acute Hospital Course - Lab Results Lab Results: Most Recent Lab Values WBC 6.5 K/uL (4.8-10.8) 03/10/18 06:20 RBC 4.73 Mil/uL (4.40-5.90) 03/10/18 06:20 Hgb 14.1 g/dL (12.0-18.0) 03/10/18 06:20 Hct 41.9 % (35.0-51.0) 03/10/18 06:20 MCV 88.5 fl (80.0-94.0) 03/10/18 06:20 MCH 29.8 pg (27.0-31.0) 03/10/18 06:20 MCHC 33.7 g/dL (33.0-37.0) 03/10/18 06:20 RDW 13.3 % (11.5-14.5) 03/10/18 06:20 Plt Count 193 K/uL (130-400) 03/10/18 06:20 MPV 8.7 fl (7.2-11.7) 03/10/18 06:20 Neut % (Auto) 43.9 % (50.0-75.0) L 03/10/18 06:20 Lymph % (Auto) 40.5 % (20.0-40.0) H 03/10/18 06:20 [place] % (Auto) 8.8 % (0.0-10.0) 03/10/18 06:20 Eos % (Auto) 6.3 % (0.0-4.0) H 03/10/18 06:20 Baso % (Auto) 0.5 % (0.0-2.0) 03/10/18 06:20 Neut # (Auto) 2.8 K/uL (1.8-7.0) 03/10/18 06:20 Lymph # (Auto) 2.6 K/uL (1.0-4.3) 03/10/18 06:20 [place] # (Auto) 0.6 K/uL (0.0-0.8) 03/10/18 06:20 Eos # (Auto) 0.4 K/uL (0.0-0.7) 03/10/18 06:20 Baso # (Auto) 0.0 K/uL (0.0-0.2) 03/10/18 06:20 ESR 11 mm/hr (0-20) 03/08/18 11:54 PT 26.4 Seconds (9.8-13.1) H D 03/11/18 04:20 INR 2.3 (0.9-1.2) H D 03/11/18 04:20 APTT 39.4 Seconds (25.6-37.1) H 03/10/18 06:20 Sodium 142 mmol/l (132-148) 03/10/18 06:20 Potassium 4.4 MMOL/L (3.6-5.0) 03/10/18 06:20 Chloride 105 mmol/L (98-107) 03/10/18 06:20 Carbon Dioxide 27 mmol/L (22-30) 03/10/18 06:20 Anion Gap 14 (10-20) 03/10/18 06:20 BUN 16 mg/dl (9-20) 03/10/18 06:20 Creatinine 0.7 mg/dl (0.8-1.5) L 03/10/18 06:20 Est GFR ( Amer) > 60 03/10/18 06:20 Est GFR (Non-Af Amer) > 60 03/10/18 06:20 POC Glucose (mg/dL) 120 mg/dL (65-110) H 03/11/18 11:18 Random Glucose 99 mg/dL (75-110) 03/10/18 06:20 Calcium 8.8 mg/dL (8.4-10.2) 03/10/18 06:20 Troponin I 0.0320 ng/mL (0.00-0.120) 03/10/18 00:43 NT-Pro-B Natriuret Pep 298 pg/ml (0-900) 03/08/18 04:07 Urine Color Yellow (YELLOW) 03/08/18 05:18 Urine Clarity Slighty-cloudy (Clear) 03/08/18 05:18 Urine pH 5.0 (5.0-8.0) 03/08/18 05:18 Ur Specific [place] 1.024 (1.003-1.030) 03/08/18 05:18 Urine Protein Negative mg/dL (NEGATIVE) 03/08/18 05:18 Urine Glucose (UA) Neg mg/dL (Normal) 03/08/18 05:18 Urine Ketones Negative mg/dL (NEGATIVE) 03/08/18 05:18 Urine Blood Small (NEGATIVE) 03/08/18 05:18 Urine Nitrate Negative (NEGATIVE) 03/08/18 05:18 Urine Bilirubin Negative (NEGATIVE) 03/08/18 05:18 Urine Urobilinogen 0.2-1.0 mg/dL (0.2-1.0) 03/08/18 05:18 Ur Leukocyte Esterase Neg [place]/uL (Negative) 03/08/18 05:18 Urine RBC (Auto) 5 /hpf (0-3) H 03/08/18 05:18 Urine Microscopic WBC 1 /hpf (0-5) 03/08/18 05:18 - Hospital Course Hospital Course: 72 yo male admitted on 03/08/18 with c/o headache and chest pain, during the ED and hospital course EKG, cardiac enzymes, CTA, CT of head was wnl, patient was found to have subtherapeutic INR due to non-adherence taking warfarin. Patient had an uneventful hospital stay, today he denies headache, chest pain, SOB, palpitations or weakness. Due to subtherapeutic INR, warfarin was resumed 7.5mg PO QD and bridging with lovenox 75 mg sc BID until reaching today therapeutic INR of 2.3, patient's HR during hospital stay has been bradycaric in the 54 to 56's, metoprolol modified to 12.5 mg po bid. Patient today instructed on the importance of medication compliance and f/u of INR level after Dc home and orde given to check INR before appoiment, will DC home on warfarin 3 mg PO QD and will f/u appoinment with at 11AM on sunday. Discharge Exam - Head Exam Head Exam: NORMOCEPHALIC - Eye Exam Eye Exam: EOMI, PERRL - Neck Exam Neck exam: Full Rom, Normal Inspection - Respiratory Exam Respiratory Exam: Clear to PA & Lateral. absent: Rales, Rhonchi, Wheezes - Cardiovascular Exam Cardiovascular Exam: REGULAR RHYTHM, +S1, +S2. absent: JVD - GI/Abdominal Exam GI & Abdominal Exam: Normal Bowel Sounds, Soft. absent: Organomegaly, Tenderness - Neurological Exam Neurological exam: Alert, Normal Gait, Oriented x3 - Psychiatric Exam Psychiatric exam: Normal Affect, Normal Mood - Skin Skin Exam: Dry, Normal Color, Warm Discharge Plan - Follow Up Plan Condition: STABLE Disposition: HOME/ ROUTINE Instructions: Palpitations (DC) Additional Instructions: follow up with your primary doctor in 1 week appt scheduled with Dr. Rueda at 11am on 03/18/2018 go for PT/INR blood check the morning of appointment take medications as prescribed any signs of bleeding/palpitations return to ED for evaluation Referrals: Abdoul Ashford MD [Primary Care Provider] -
== END 2018-03-11 14:00 | disposition home or self-care (01) ==
LOC: H.ER 03:36 → OBSVTOIN 05:07 → INTOOBSV 05:07 → H.ERHOLD 05:07 → H.TEL 11:25
PROVIDERS: ADMIT Family Medicine Geriatric Medicine; ATTEND Family Medicine Geriatric Medicine
DX: R79.1 Abnormal coagulation profile (principal); R07.9 Chest pain, unspecified; I10 Essential (primary) hypertension; Z86.711 Personal history of pulmonary embolism; F32.9 Major depressive disorder, single episode, unspecified; Z96.642 Presence of left artificial hip joint; Z88.0 Allergy status to penicillin; G44.209 Tension-type headache, unspecified, not intractable; Z79.01 Long term (current) use of anticoagulants; Z79.84 Long term (current) use of oral hypoglycemic drugs; Z79.899 Other long term (current) drug therapy; R73.03 Prediabetes; I25.10 Atherosclerotic heart disease of native coronary artery without angina pectoris; E78.5 Hyperlipidemia, unspecified
CPT/HCPCS: 36415; 70450; 71045; 71275; 80048; 81003; 82948; 83880; 84484; 85025; 85610; 85651; 85730; 90732; 93005; 96361; 96372; 96374; 99285; G0009; G0378; J1650; J1885; J7030; J7040; Q9967

== ENCOUNTER 2018-04-18 22:09 | Observation (INO) | payer MEDICARE ==
[2018-04-18 22:09] VITALS: BMI 25.8
[2018-04-18] MEDS ORDERED: Tdap Vaccine 0.5 ml Vial (10-64 yrs) IM ONE ×2 (23:05→23:12)
[2018-04-18] MEDS ORDERED: Liquid Adhesive TOP STA (23:06)
--- NOTE | 2018-04-18 23:09 | ED PDOC ---
Syncope/Near Syncope/Dizziness Time Seen by Provider: 04/18/18 22:28 Chief Complaint (Nursing): Trauma Chief Complaint (Provider): Facial injury History Per: Patient, Birth Attendant (Gavin #[id number] (Daryn Nelson)) History/Exam Limitations: language barrier Additional Complaint(s): Pt states he finished vacuuming when he felt dizzy and fell onto vacuum hitting the R side of his face/eye, now c/o dizziness and PEÑA, no LOC. Denies CP, SOB, palpitations, nausea, vomiting. Also c/o R foot pain X 1 month, intermittent swelling. Unsure of tetanus status. Past Medical History Reviewed: Nursing Documentation, Vital Signs Vital Signs: Last Vital Signs Temp 98.1 F 04/18/18 22:18 Pulse 74 04/18/18 22:18 Resp 16 04/18/18 22:18 BP 140/80 04/18/18 22:18 Pulse Ox 95 04/18/18 22:18 - Medical History PMH: Arthritis, CAD, Diabetes, HTN, Hypercholesterolemia, Pulmonary Embolism ( 2012) Denies: HIV, Chronic Kidney Disease - Surgical History Surgical History: Hernia Repair, Tonsillectomy - Family History Family History: States: Unknown Family Hx - Living Arrangements Living Arrangements: With Family - Social History Current smoker - smoking cessation education provided: No Alcohol: None - Home Medications Home Medications: Ambulatory Orders Medication Instructions Recorded Atorvastatin [Lipitor] 20 mg PO HS #0 tab 10/16/15 Gabapentin [Neurontin] 300 mg PO BID #0 cap 10/16/15 Losartan [Cozaar] 100 mg PO DAILY #0 tab 10/16/15 Metoprolol Tartrate [Lopressor] 25 mg PO Q12 #0 tab 10/16/15 Sertraline [Zoloft] 100 mg PO DAILY #0 tab 10/16/15 Warfarin [Coumadin] 3 mg PO DAILY #0 tab 10/16/15 metFORMIN [glucOPHAGE] 500 mg PO DAILY #0 tab 10/16/15 - Allergies Allergies/Adverse Reactions: Allergies Allergy/AdvReac Type Severity Reaction Status Date / Time Penicillins Allergy RASH Verified 04/18/18 22:17 Review of Systems Constitutional: Negative for: Fever, Chills Eyes: Negative for: Vision Change Cardiovascular: Negative for: Chest Pain, Palpitations Respiratory: Negative for: Cough, Shortness of Breath Gastrointestinal: Negative for: Nausea, Vomiting, Abdominal Pain, Diarrhea Genitourinary Male: Negative for: Dysuria, Hematuria Skin: Positive for: Other (Facial laceration). Negative for: Rash, Lesions Neurological: Positive for: Headache, Dizziness. Negative for: Weakness, Numbness, Incoordination, Change in Speech, Confusion, Seizures, Altered Mental Status Physical Exam - Reviewed Nursing Documentation Reviewed: Yes Vital Signs Reviewed: Yes - Physical Exam Appears: Positive for: Well, No Acute Distress Head Exam: Positive for: ATRAUMATIC, NORMAL INSPECTION Skin: Positive for: Normal Color, Warm, Dry Eye Exam: Positive for: EOMI, PERRL, Periorbital swelling, Conjunctival injection, Other (Inferior orbital ecchymosis, 0.75 cm linear laceration, + bleeding, orbital crepitus, no deformity) Neck: Positive for: Normal, Painless ROM, Supple Cardiovascular/Chest: Positive for: Regular Rate, Rhythm Respiratory: Positive for: Normal Breath Sounds. Negative for: Rales, Rhonchi, Wheezing Gastrointestinal/Abdominal: Positive for: Normal Exam Back: Positive for: Normal Inspection Extremity: Positive for: Normal ROM, Other (R FOOT: TTP) Neurologic/Psych: Positive for: Alert, elevator conductor II-XII, Oriented. Negative for: Motor/Sensory Deficits, Aphasia, Facial Droop - Laboratory Results Result Diagrams: 04/18/18 23:32 04/18/18 23:32 - ECG O2 Sat by Pulse Oximetry: 95 Medical Decision Making Medical Decision Makin yo male with near syncope, facial laceration and PEÑA. - labs - EKG - CXR - XR R foot - CT head - CT facial bones - Adacel Disposition - Clinical Impression Clinical Impression: Near syncope - Patient ED Disposition Is Patient to be Admitted: Transfer of Care - Disposition Disposition: Transfer of Care Disposition Time: 00:00 Condition: FAIR Patient Signed Over To: Alex Louie Procedure: Wound Repair - Time Performed Time Performed: 22:50 - Time Out Time Out: Side verified - Consent Obtained Consent obtained: Verbal - Performed by Performed by: Attending Physician - Location Location:: Face - Debris Debris:: None - Complexity Complexity:: Simple (one layer) - Wound repair method Rafael:: Tissue glue - Patient tolerated procedure Patient Tolerated Procedure:: Well
[2018-04-18 23:36] LABS: BASO # 0.1 K/uL (0.0-0.2); BASO % 0.7 % (0.0-2.0); EOS # 0.4 K/uL (0.0-0.7); EOS % 4.9 % (0.0-4.0); HEMOGLOBIN 14.8 g/dL (12.0-18.0); LYMPH # 3.2 K/uL (1.0-4.3); LYMPH % 36.5 % (20.0-40.0); MEAN CELL VOLUME 87.2 fl (80.0-94.0); MEAN CORPUSCULAR HEMOGLOBIN 30.3 pg (27.0-31.0); MEAN CORPUSCULAR HGB CONC 34.7 g/dL (33.0-37.0); MEAN PLATELET VOLUME 8.1 fl (7.2-11.7); MONO # 0.8 K/uL (0.0-0.8); MONO % 8.7 % (0.0-10.0); NEUT # 4.4 K/uL (1.8-7.0); NEUT % 49.2 % (50.0-75.0); RBC 4.9 Mil/uL (4.40-5.90); RED CELL DISTRIBUTION WIDTH 13.3 % (11.5-14.5); WHITE BLOOD COUNT 8.9 K/uL (4.8-10.8)
[2018-04-18 23:43] LABS: INR 2.7; PROTHROMBIN TIME 30.1 Seconds (9.8-13.1); URINE BACTERIA RARE (<OCC); URINE BILIRUBIN NEGATIVE (NEGATIVE); URINE BLOOD NEGATIVE (NEGATIVE); URINE CLARITY SLIGHTY-CLOUDY (Clear); URINE COLOR YELLOW (YELLOW); URINE GLUCOSE (UA) NEG (Normal); URINE LEUKOCYTE ESTERASE NEG Leu/uL (Negative); URINE PROTEIN NEGATIVE (NEGATIVE)
[2018-04-18 23:46] LABS: PARTIAL THROMBOPLASTIN TIME 47.4 Seconds (25.6-37.1)
[2018-04-18 23:53] LABS: ALB/GLOB RATIO 1.4 (1.0-2.1); ALBUMIN 4.4 g/dL (3.5-5.0); ALT/SGPT 41 U/L (21-72); AST/SGOT 30 U/L (17-59); BLOOD UREA NITROGEN 26 mg/dl (9-20); CALCIUM 9.4 mg/dL (8.4-10.2); GFR AFRICAN-AMERICAN > 60; GFR NON-AFRICAN AMERICAN > 60
--- NOTE | 2018-04-19 00:08 | ED PDOC ---
- Laboratory Results Result Diagrams: 04/18/18 23:32 04/18/18 23:32 - ECG O2 Sat by Pulse Oximetry: 95 (RA) Pulse Ox Interpretation: Normal Medical Decision Making Medical Decision Making: Time: 00:00 --Patient endorsed to this provider by Dr. Da Silva, pending CT and reevaluation. Time: 00:[address] FINDINGS: Brain: [id number] atrophy. No intracranial hemorrhage. No mass. Minimal decreased attenuation within periventricular white matter. No edema. Ventricles: No hydrocephalus. Bones/joints: No calvarial fracture. Soft tissues: Unremarkable. Vasculature: Mild atherosclerotic disease of intracranial arteries. Mastoid air cells: No significant effusion. IMPRESSION: 1. No intracranial hemorrhage. 2. Nonspecific white matter changes. 3. See facial bone CT report for additional details. 4. Incidental/non-acute findings are described above. Time: 00:28 CT Maxillofacial Without Intravenous Contrast FINDINGS: Bones/joints: Degenerative changes of cervical spine. No acute fracture. Soft tissues: Dermal calcifications. Orbits: Unremarkable as visualized. Sinuses: Extensive mucosal thickening of ethmoid sinuses. [id number] mucosal thickening of maxillary, sphenoid sinuses. Mild mucosal thickening of frontal sinuses. No air- fluid levels. Dental: Periapical lucency compatible with dental disease. IMPRESSION: 1. No fracture. 2. Sinus disease. 3. Incidental/non-acute findings are described above. Time: 00:35 --Case discussed with Dr. Perez, admitting resident. Diagnosis near syncope. Scribe Attestation: Documented by Missy Lopez, acting as a scribe for Alex Louie MD Provider Scribe Attestation: All medical record entries made by the Scribe were at my direction and personally dictated by me. I have reviewed the chart and agree that the record accurately reflects my personal performance of the history, physical exam, medical decision making, and the department course for this patient. I have also personally directed, reviewed, and agree with the discharge instructions and disposition. Disposition - Clinical Impression Clinical Impression: Near syncope - POA Present On Arrival: Falls Or Trauma - Disposition Disposition: Hospitalized as Observation Patient Disposition Time: 00:35 Condition: FAIR
[2018-04-19] MEDS ORDERED: Sodium Chloride 0.9% 1,000 ML IV SCH ×2 (03:00)
--- NOTE | 2018-04-19 03:05 | CP.PCM.HP ---
Addendum entered and electronically signed by Sisi Gunter MD 04/19/18 14:46 : I saw and evaluated the patient. I discussed the case with the resident and agree with the findings and plan as documented in the resident's note. Patient feeling well, denies any dizzyness or lightheadedness prior to the fall. Head CT and maxillofacial CT negative. R foto xray negative, patient able to ambulate and bear weight on R side. INR therapeutic. Continue current dose of coumadin 3 mg, lab slip printed to complete INR in one week. Patient has appt to followup with PMD. Further ER precautions provided, if any lightheaded, dizzyness, headaches, blurry vision, bleeding, patient advised to report to the ER. Cold compresses to bruising, dermabond applied. Stable for discharge home, patient has all home medications. Counseled to avoid any nsaid use. Addendum entered and electronically signed by Martha Valentin MD 04/19/18 10 :38: Patient seen and examined at bedside with attending Dr. Gunter. Patient is in no acute distress, is tolerating PO diet, has normal urine output. Denies chest pain, dizziness, weakness or headaches. PE: AAO x3, BP 151/78 mmHg, P 69, O2 sat 98% on room air HEENT: right periorbital ecchymosis with small laceration s/p dermabond below right eye Cardiac: S1 S2 normal, no murmurs Abd: bowel sounds present, soft, nontender Extremities: full range of motions, no edema Neuro: normal speech, strength and tone normal bilateral in upper and lower extremities A: 72 yr old M admitted for presyncope s/p right foot sprain and mechanical fall. Patient is stable for discharge. P: Discharge patient to home with instructions to: -Follow up with your PMD Dr. Ashford in [facility] on 05/07/18 at 9:40am -Resume home medications as prescribed -Take Tylenol 650mg PO Q6 as needed for pain -Have blood work within 1 week -Rx given (PT, PTT/INR) Original Note: History of Present Illness - History of Present Illness History of Present Illness: 72 y/o male with PMH of PE s/p IVC in 2013, HTN, HLD, DM II and depression admitted to [facility] for observation after having a near syncope episode. - Patient reports he was vacuuming at work when he felt a little light headed and tripped over something and fell hitting his eye on the vacuum radiator cleaner . Denies any palpitations before the episode occur. Denies any nausea or vomtiting after the event. He states his fall was witnessed by coworkers and he did not lose consciousness. They asked him a set of questions about his name, the date and his address and he was able to give all the correct answers. He suffered a small laceration underneath his right eye, which was repaired in the ER. He is currently wearing an eye patch and states he has a problem with depth perception with a eye patch on. Other then that no problems with is vision. - Patient admits to tripping many times this year but has not fell down until this episode. He complains of right ankle and right leg pain over the last month , but denies any injury, previous injuries - Patient has a slight headache 4/10 and still feels a little headed but better then before, denies any blurring of vision or ringing in his ears. - Patient states he did eat throughout the day, however he only had one small bottle of water all day, normally he has 4-5 bottles of water. -Patient denies any current chest pain , SOB, blurred vision, palpitations, weakness, or urinary symptoms. - Patient has been compliant with all his medications and took his warfarin today. [employer]# [id number] PMD: Dr. Piotr Ashford PMH:PE s/p IVC in 2013, HTN, HLD, DMII and depression PSH: IVC filter 2013, Cataracts 2012, Inguinal hernia repair 2006, Left total hip replacement 2015 Allg: Penicillin (Rash) Meds: See med recs SH: Social alcohol use, denies smoking or illicit drug use FH: Positive for DM, HTN and colon cancer ROS: As per HPI ED Course: VS:Temp: 98.1 HR: 74, BP:140/80, RR: 16, O2:95 on room air CBC: WNL CMP: Significant BUN: 26/ Creatinine .9 : > Dehydration PT/INR/PTT: 30.1/2.7/47.4 Troponin negative x 1 - Laceration repair with tissue glue - Duplex lower extremity U/S: No DVT EKG: Head: CT IMPRESSION: 1. No intracranial hemorrhage. 2. Nonspecific white matter changes. 3. See facial bone CT report for additional details. 4. Incidental/non-acute findings are described above. CT Maxilofacial w/o contrast: IMPRESSION: 1. No fracture. 2. Sinus disease. 3. Incidental/non-acute findings are described above. - Chest x ray: No active disease. Interpreted by me - Right foot X ray: No fracture noted. Interpreted by me Present on Admission - Present on Admission Any Indicators Present on Admission: Yes History of DVT/PE: Yes History of Uncontrolled Diabetes: No Past Patient History - Infectious Disease Hx of Infectious Diseases: None - Past Medical History & Family History Past Medical History?: Yes - Past Social History Alcohol: None - CARDIAC Hx Hypercholesterolemia: Yes Hx Hypertension: Yes - PULMONARY Hx Pulmonary Embolism: Yes (2012) - NEUROLOGICAL Hx Neurological Disorder: No - HEENT Hx HEENT Problems: Yes Hx Cataracts: Yes - RENAL Hx Chronic Kidney Disease: No - ENDOCRINE/METABOLIC Hx Endocrine Disorders: Yes Hx Diabetes Mellitus Type 2: Yes - HEMATOLOGICAL/ONCOLOGICAL Hx Human Immunodeficiency Virus (HIV): No - INTEGUMENTARY Hx Dermatological Problems: No - MUSCULOSKELETAL/RHEUMATOLOGICAL Hx Arthritis: Yes - GASTROINTESTINAL Hx Gastrointestinal Disorders: No - GENITOURINARY/GYNECOLOGICAL Hx Genitourinary Disorders: Yes Hx Prostate Problems: Yes (Prostate Surgery 1998) Other/Comment: Syphillis - when he was 12 yrs old. - PSYCHIATRIC Hx Psychophysiologic Disorder: No Hx Substance Use: No - SURGICAL HISTORY Hx Tonsillectomy: Yes - ANESTHESIA Hx Anesthesia: Yes Hx Anesthesia Reactions: No Hx Malignant Hyperthermia: No Meds Allergies/Adverse Reactions: Allergies Allergy/AdvReac Type Severity Reaction Status Date / Time Penicillins Allergy RASH Verified 04/18/18 22:17 Physical Exam - Constitutional Appears: No Acute Distress Additional comments: Right sided eye patch - Head Exam Additional comments: Linear laceration under right eye - Eye Exam Eye Exam: EOMI, PERRL Pupil Exam: NORMAL ACCOMODATION, PERRL Additional comments: Right eye patch C/D/I - ENT Exam ENT Exam: Normal Exam - Neck Exam Neck exam: Positive for: Normal Inspection - Respiratory Exam Respiratory Exam: Clear to Auscultation Bilateral, NORMAL BREATHING PATTERN. absent: Rhonchi, Wheezes - Cardiovascular Exam Cardiovascular Exam: REGULAR RHYTHM, +S1, +S2. absent: Systolic Murmur - GI/Abdominal Exam GI & Abdominal Exam: Normal Bowel Sounds, Soft. absent: Tenderness - Extremities Exam Extremities exam: Positive for: normal inspection. Negative for: calf tenderness Additional comments: Full ROM with some pain on flexion of right ankle - tender to palpate over dorsal medial aspect of foot. No echemosis or swelling noted - Neurological Exam Neurological exam: Alert, CN II-XII Intact, Oriented x3 Additional comments: Patients depth perception is off, most likely secondary to his eye patch - Psychiatric Exam Psychiatric exam: Normal Affect, Normal Mood - Skin Skin Exam: Normal Color, Warm Results - Vital Signs Recent Vital Signs: Last Vital Signs Temp 98.0 F 04/19/18 01:37 Pulse 80 04/19/18 01:37 Resp 18 04/19/18 01:37 BP 154/73 H 04/19/18 01:37 Pulse Ox 98 04/19/18 01:37 - Labs Result Diagrams: 04/18/18 23:32 04/18/18 23:32 Labs: Laboratory Results - last 24 hr 04/18/18 04/18/18 04/18/18 23:32 23:32 23:32 WBC 8.9 RBC 4.90 Hgb 14.8 Hct 42.7 MCV 87.2 MCH 30.3 MCHC 34.7 RDW 13.3 Plt Count 225 MPV 8.1 Neut % (Auto) 49.2 L Lymph % (Auto) 36.5 [place] % (Auto) 8.7 Eos % (Auto) 4.9 H Baso % (Auto) 0.7 Neut # (Auto) 4.4 Lymph # (Auto) 3.2 [place] # (Auto) 0.8 Eos # (Auto) 0.4 Baso # (Auto) 0.1 PT 30.1 H INR 2.7 APTT 47.4 H Sodium 141 Potassium 4.4 Chloride 106 Carbon Dioxide 24 Anion Gap 15 BUN 26 H Creatinine 0.9 Est GFR ( Amer) > 60 Est GFR (Non-Af Amer) > 60 Random Glucose 88 Calcium 9.4 Total Bilirubin 0.5 AST 30 ALT 41 Alkaline Phosphatase 137 H Troponin I 0.0320 Total Protein 7.7 Albumin 4.4 Globulin 3.2 Albumin/Globulin Ratio 1.4 Urine Color Urine Clarity Urine pH Ur Specific [place] Urine Protein Urine Glucose (UA) Urine Ketones Urine Blood Urine Nitrate Urine Bilirubin Urine Urobilinogen Ur Leukocyte Esterase Urine RBC (Auto) Urine Microscopic WBC Urine Bacteria 04/18/18 23:32 WBC RBC Hgb Hct MCV MCH MCHC RDW Plt Count MPV Neut % (Auto) Lymph % (Auto) [place] % (Auto) Eos % (Auto) Baso % (Auto) Neut # (Auto) Lymph # (Auto) [place] # (Auto) Eos # (Auto) Baso # (Auto) PT INR APTT Sodium Potassium Chloride Carbon Dioxide Anion Gap BUN Creatinine Est GFR ( Amer) Est GFR (Non-Af Amer) Random Glucose Calcium Total Bilirubin AST ALT Alkaline Phosphatase Troponin I Total Protein Albumin Globulin Albumin/Globulin Ratio Urine Color Yellow Urine Clarity Slighty-cloudy Urine pH 6.0 Ur Specific [place] 1.018 Urine Protein Negative Urine Glucose (UA) Neg Urine Ketones Trace Urine Blood Negative Urine Nitrate Negative Urine Bilirubin Negative Urine Urobilinogen 2.0 Ur Leukocyte Esterase Neg Urine RBC (Auto) 2 Urine Microscopic WBC 2 Urine Bacteria Rare Assessment & Plan - Assessment and Plan (Free Text) Assessment: 72 y/o male with PMH of PE s/p IVC in 2013, HTN, HLD, DMII and depression admitted for observation after his fall. Fall secondary to lightheadedness - CT head negative - Most likely secondary to dehydration - BUN: 26/ Creatinine: .9 - IVF @ 200mls/hr - telemetry History of PE, S/p IVC 2013 - Home med Warfarin 3mg PO - INR therapeutic - Duplex venous U/S negative for PE HTN - C/w home meds: Metoprolol 25mg Q12, Losartan 100mg daily HLD - Lipitor 20 daily Pre-diabetes - Metformin 500mg daily - HBA1C: 6.1 02/16/18 Hx of Depression - Zoloft 100mg daily DVT PPx - History of PE - Therapeutic INR - C/w Warfarin 3mg daily
--- NOTE | 2018-04-19 06:07 | CARD ---
APPROVED REPORT Date of service: 04/18/2018 <Conclusion> Normal sinus rhythm Normal ECG
--- NOTE | 2018-04-19 09:18 | RAD ---
Date of service: 04/18/2018 HISTORY: CP COMPARISON: Frontal chest radiograph 03/08/2018. TECHNIQUE: Chest PA and lateral FINDINGS: LUNGS: No active pulmonary disease. PLEURA: No significant pleural effusion identified. No pneumothorax apparent. CARDIOVASCULAR: Normal. OSSEOUS STRUCTURES: No significant abnormalities. VISUALIZED UPPER ABDOMEN: Normal. OTHER FINDINGS: None. IMPRESSION: No interval acute cardiopulmonary disease appreciated.
--- NOTE | 2018-04-19 09:21 | RAD ---
Date of service: 04/18/2018 PROCEDURE: Right Foot Radiographs. HISTORY: Foot pain COMPARISON: None. FINDINGS: BONES: No acute fracture or destructive bony lesion identified. JOINTS: Degenerative joint space narrowing and articular cortical sclerosis appreciated primarily throughout the interphalangeal joints diffusely as well as the tarsal navicular and calcaneal cuboidal joints. Similar changes are present throughout the tarsal metatarsal articulations. First metatarsophalangeal is also affected. SOFT TISSUES: Normal. OTHER FINDINGS: None. IMPRESSION: No acute fracture or dislocation identified. Degenerative changes are mild throughout the right foot joints diffusely with 2nd through 5th metatarsophalangeal joints least affected.
[2018-04-19 09:39] VITALS: RESP 16
--- NOTE | 2018-04-19 10:37 | US ---
Date of service: 04/18/2018 PROCEDURE: Right lower extremity venous duplex Doppler. HISTORY: R foot pain, h/o PE COMPARISON: None available. TECHNIQUE: Common femoral, superficial femoral, popliteal and posterior tibial veins were evaluated. Flow was assessed with color Doppler, compressibility, assessment of phasic flow and augmentation response. FINDINGS: COMMON FEMORAL VEIN: Unremarkable. SUPERFICIAL FEMORAL VEIN: Unremarkable. POPLITEAL VEIN: Unremarkable. POSTERIOR TIBIAL VEIN: Unremarkable. OTHER FINDINGS: None. IMPRESSION: No evidence of deep venous thrombosis in the right lower extremity. Concordant results (preliminary interpretation) provided by [facility]. Procedure Completed: 23:29. Preliminary ([facility]) Report: Dictated and Authenticated: 23:45. Final Interpretation: 10:35. April 19, 2018.
--- NOTE | 2018-04-19 10:56 | CT ---
Date of service: 04/19/2018 PROCEDURE: CT HEAD WITHOUT CONTRAST. HISTORY: Vertigo COMPARISON: 03/08/2018 CT head TECHNIQUE: Axial computed tomography images were obtained through the head/brain without intravenous contrast. Radiation dose: Total exam DLP = 813.83 mGy-cm. This CT exam was performed using one or more of the following dose reduction techniques: Automated exposure control, adjustment of the mA and/or kV according to patient size, and/or use of iterative reconstruction technique. FINDINGS: HEMORRHAGE: No intracranial hemorrhage. BRAIN: No mass effect or edema. Cortical atrophy and chronic microvascular ischemic change. VENTRICLES: Unremarkable. No hydrocephalus. CALVARIUM: Unremarkable. PARANASAL SINUSES: Unremarkable as visualized. No significant inflammatory changes. MASTOID AIR CELLS: Unremarkable as visualized. No inflammatory changes. OTHER FINDINGS: None. IMPRESSION: No significant interval change compared to the prior examination(s). Concordant results (preliminary interpretation) provided by [facility]. Procedure Completed: 00:03. Preliminary ([facility]) Report: Dictated and Authenticated: 00:21. Final Interpretation: 10:54. April 19, 2018.
--- NOTE | 2018-04-19 10:59 | CT ---
Date of service: 04/19/2018 PROCEDURE: CT MAXILLOFACIAL BONES WITHOUT CONTRAST HISTORY: R inferior orbital injury COMPARISON: None. TECHNIQUE: Contiguous axial CT images of the maxillofacial bones were obtained. Coronal and sagittal reformats were generated. Radiation dose: Total exam DLP = 716.53 mGy-cm. This CT exam was performed using one or more of the following dose reduction techniques: Automated exposure control, adjustment of the mA and/or kV according to patient size, and/or use of iterative reconstruction technique. FINDINGS: NASAL BONES: No evidence of acute fracture. Deviated bony nasal septum otherwise unremarkable ORBITS: Unremarkable. PARANASAL SINUSES/ MASTOIDS: Extensive ethmoid air cell disease. Mild frontal, sphenoid and maxillary sinus disease. No air-fluid levels detected. MAXILLA: Unremarkable. MANDIBLE/ TEMPOROMANDIBULAR JOINTS: Unremarkable. SKULL BASE: Unremarkable. TEMPORAL BONES: Middle ears and mastoid grossly unremarkable. OTHER FINDINGS: Innumerable small less than 1 cm lymph nodes primarily submandibular. Chronic pansinusitis. Additional carotid sheath lymph nodes and postauricular lymph nodes identified. Again the preponderance of these lymph nodes less than 1 cm. IMPRESSION: No acute findings related to/accounting for the clinical presentation. Additional benign and/or incidental findings described above. Concordant results (preliminary interpretation) provided by [facility]. Procedure Completed: 00:05. Preliminary ([facility]) Report: Dictated and Authenticated: 00:28. Final Interpretation: 10:57. April 19, 2018.
[2018-04-19 11:46] VITALS: BP 142/79; TEMP 98.1
[2018-04-19 12:38] VITALS: PULSE 79
[2018-04-21 12:58] VITALS: O2SAT 95
== END 2018-04-19 12:00 | disposition home or self-care (01) ==
LOC: H.ER 22:09 → H.ERHOLD 04-19 00:35
PROVIDERS: ADMIT Family Medicine Geriatric Medicine; ATTEND Family Medicine Geriatric Medicine
DX: R42 Dizziness and giddiness (principal); S93.601A Unspecified sprain of right foot, initial encounter; Y93.E3 Activity, vacuuming; Y92.9 Unspecified place or not applicable; S01.81XA Laceration without foreign body of other part of head, initial encounter; Z86.711 Personal history of pulmonary embolism; Z88.0 Allergy status to penicillin; Z23 Encounter for immunization; M19.90 Unspecified osteoarthritis, unspecified site; I10 Essential (primary) hypertension; E78.00 Pure hypercholesterolemia, unspecified; E78.5 Hyperlipidemia, unspecified; F32.9 Major depressive disorder, single episode, unspecified; W01.198A Fall on same level from slipping, tripping and stumbling with subsequent striking against other object, initial encounter; R73.03 Prediabetes
CPT/HCPCS: 12011; 70450; 70486; 71046; 73630; 80053; 81003; 84484; 85025; 85610; 85730; 90471; 90715; 93005; 93971; 96360; 96361; 99285; G0378; J7030

== ENCOUNTER 2018-08-30 10:55 | Inpatient (IN) | payer MEDICARE ==
[2018-08-30 11:02] VITALS: BMI 24.0
[2018-08-30] MEDS ORDERED: Morphine 4 MG/ML VIAL IVP STA (11:28)
[2018-08-30] MEDS ORDERED: Sodium Chloride 0.9% 1,000 ML IV STA (11:30)
[2018-08-30] MEDS ORDERED: Morphine 4 MG/ML VIAL ONE ×2 (11:49→15:48)
--- NOTE | 2018-08-30 12:02 | ED PDOC ---
HPI: Abdomen Time Seen by Provider: 08/30/18 11:16 Chief Complaint (Nursing): Abdominal Pain Chief Complaint (Provider): Abdominal Pain History Per: Patient History/Exam Limitations: no limitations Onset/Duration Of Symptoms: Days (3x), Worse Since Current Symptoms Are (Timing): Constant Severity: Severe Location Of Pain/Discomfort: RLQ Quality Of Discomfort: "Pain" Associated Symptoms: Nausea Additional Complaint(s): 72 year old male with history of HTN, diabetes and pulmonary embolism presents to the ED for an evaluation of right lower quadrant abdominal pain onset for 3 days. Patient states the pain started on Sunday which lasted for few hours and the next day he developed discomfort but no pain. He went to his PMD on 08/28/18 and was provided a referral for abdominal US. Patient states the pain was constant yesterday and is becoming worse. He reports the abdominal pain today is severe and radiating down to his right thigh and upwards. Also re ports of nausea, otherwise patient denies vomiting, diarrhea, fever or urinary symptoms. He took Tylenol for pain without any relief. PMD: Abdoul Ashford Past Medical History Reviewed: Historical Data, Nursing Documentation, Vital Signs Vital Signs: Last Vital Signs Temp 98.1 F 08/30/18 11:02 Pulse 81 08/30/18 11:02 Resp 20 08/30/18 11:02 BP 148/58 L 08/30/18 11:02 Pulse Ox 99 08/30/18 11:02 - Medical History PMH: Arthritis, CAD, Diabetes, HTN, Hypercholesterolemia, Pulmonary Embolism (2012) Denies: HIV, Chronic Kidney Disease - Surgical History Surgical History: Hernia Repair, Tonsillectomy - Family History Family History: States: Unknown Family Hx - Social History Current smoker - smoking cessation education provided: No Alcohol: None Drugs: Denies - Home Medications Home Medications: Ambulatory Orders Medication Instructions Recorded Atorvastatin [Lipitor] 80 mg PO HS 08/30/18 Gabapentin [Neurontin] 300 mg PO Q12 08/30/18 Losartan [Cozaar] 100 mg PO DAILY 08/30/18 Metoprolol Tartrate [Lopressor] 25 mg PO Q12 08/30/18 Sertraline [Zoloft] 10 mg PO DAILY 08/30/18 Warfarin [Coumadin] 3 mg PO DAILY 08/30/18 metFORMIN [glucOPHAGE] 500 mg PO BID 08/30/18 - Allergies Allergies/Adverse Reactions: Allergies Allergy/AdvReac Type Severity Reaction Status Date / Time Penicillins Allergy RASH Verified 04/18/18 22:17 Review of Systems ROS Statement: Except As Marked, All Systems Reviewed And Found Negative Constitutional: Negative for: Fever, Chills Cardiovascular: Negative for: Chest Pain Respiratory: Negative for: Cough, Shortness of Breath Gastrointestinal: Positive for: Nausea, Abdominal Pain (RLQ). Negative for: Vomiting, Diarrhea Genitourinary Male: Negative for: Dysuria, Frequency, Incontinence, Hematuria Physical Exam - Reviewed Nursing Documentation Reviewed: Yes Vital Signs Reviewed: Yes - Physical Exam Appears: Positive for: Non-toxic. Negative for: Well (uncomfortable ) Head Exam: Positive for: ATRAUMATIC, NORMAL INSPECTION, NORMOCEPHALIC Skin: Positive for: Normal Color, Warm, Dry. Negative for: Rash Eye Exam: Positive for: EOMI, Normal appearance, PERRL ENT: Positive for: Normal ENT Inspection Neck: Positive for: Normal, Painless ROM, Supple. Negative for: Decreased ROM Cardiovascular/Chest: Positive for: Regular Rate, Rhythm. Negative for: Murmur Respiratory: Positive for: Normal Breath Sounds. Negative for: Decreased Breath Sounds, Wheezing, Respiratory Distress Gastrointestinal/Abdominal: Positive for: Soft, Tenderness (right lower quadrant), Other (positive Rovsing sign). Negative for: Guarding, Rebound Back: Positive for: Normal Inspection. Negative for: L CVA Tenderness, R CVA Tenderness Extremity: Positive for: Normal ROM. Negative for: Tenderness, Pedal Edema, Deformity Neurologic/Psych: Positive for: Alert, Oriented (x3). Negative for: Motor/Sensory Deficits - Laboratory Results Result Diagrams: 08/30/18 12:31 08/30/18 12:31 - ECG O2 Sat by Pulse Oximetry: 99 (RA) Pulse Ox Interpretation: Normal Medical Decision Making Medical Decision Making: Time: 1129 Initial Impression: RLQ pain and tenderness Differential Diagnosis: acute appendicitis, nephrolithiasis, abdominal hernia Initial Plan: Abdomen & Pelvis IV Contrast Only [CT] CMP Lipase ED Urine CBC w/ Differential PTT Prothrombin Time Normal Saline 1000 mls/hr Zofran Inj 4mg IV Insertion Reevaluation Time: 1357 PROCEDURE: CT Abdomen and Pelvis with contrast HISTORY: RLQ pain COMPARISON: 04/07/2013 TECHNIQUE: Contrast dose: 95 cc Omnipaque 300 Radiation dose: Total exam DLP = 642.72 mGy-cm. This CT exam was performed using one or more of the following dose reduction techniques: Automated exposure control, adjustment of the mA and/or kV according to patient size, and/or use of iterative reconstruction technique. FINDINGS: LOWER THORAX: Minimal dependent atelectasis both lower lobes. LIVER: Unremarkable. No gross lesion or ductal dilatation. GALLBLADDER AND BILE DUCTS: Unremarkable. PANCREAS: Unremarkable. No gross lesion or ductal dilatation. SPLEEN: Mild splenomegaly. The spleen measures 13.9 cm in greatest dimension. ADRENALS: Unremarkable. No mass. KIDNEYS AND URETERS: Two left upper pole cortical cysts. Exophytic 2.9 cm cyst, 3 Hounsfield units. Pedunculated 8.9 cm cyst, 12 Hounsfield units. No calculus or hydronephrosis. VASCULATURE: No aortic aneurysm. Atherosclerotic calcification of the abdominal aorta is noted. An inferior vena caval filter is noted. BOWEL: No bowel obstruction. APPENDIX: Distention of the appendix with mural thickening, up to 14 mm. Appendicoliths noted. Periappendiceal inflammatory change. Surinder periappendiceal fluid. Findings consistent with acute appendicitis. No periappendiceal abscess. No free air. PERITONEUM: Unremarkable. No free fluid. No free air. LYMPH NODES: Unremarkable. No enlarged lymph nodes. BLADDER: Suboptimally distended. Grossly normal. REPRODUCTIVE: Minimal prostate enlargement. BONES: Left hip arthroplasty. No acute fracture. OTHER FINDINGS: None. IMPRESSION: Findings consistent with acute appendicitis. No periappendiceal abscess or free air. Additional minor findings as above. 1415 Discussed with FP resident and personally Dr Ashford for admission. Dr Ashford requests private consult with Dr Rodriguez. 1435 Discussed with certified ophthalmic surgical assistant and personally with Dr Rodriguez who will be on consult. Scribe Attestation: Documented by Mayra Flores, acting as a scribe for Angelica Carpenter MD Provider Scribe Attestation: All medical record entries made by the Scribe were at my direction and personally dictated by me. I have reviewed the chart and agree that the record accurately reflects my personal performance of the history, physical exam, medical decision making, and the department course for this patient. I have also personally directed, reviewed, and agree with the discharge instructions and disposition. Disposition - Clinical Impression Clinical Impression: Acute appendicitis, Anticoagulated on Coumadin, Hx pulmonary embolism - Patient ED Disposition Is Patient to be Admitted: Yes Discussed With : Abdoul Ashford Doctor Will See Patient In The: Hospital Counseled Patient/Family Regarding: Studies Performed, Diagnosis - Disposition Disposition Time: 14:20 Condition: GOOD - Pt Status Changed To: Hospital Disposition Of: Inpatient - Admit Certification Admit to Inpatient:: After my assessment, the patient will require hospitalization for at least two midnights. This is because of the severity of symptoms shown, intensity of services needed, and/or the medical risk in this patient being treated as an outpatient. - POA Present On Arrival: None
[2018-08-30 12:34] LABS: BASO # 0.1 K/uL (0.0-0.2); BASO % 0.4 % (0.0-2.0); EOS # 0.2 K/uL (0.0-0.7); EOS % 1.6 % (0.0-4.0); HEMOGLOBIN 15.3 g/dL (12.0-18.0); LYMPH # 1.8 K/uL (1.0-4.3); LYMPH % 12.5 % (20.0-40.0); MEAN CELL VOLUME 87.2 fl (80.0-94.0); MEAN CORPUSCULAR HEMOGLOBIN 29.4 pg (27.0-31.0); MEAN CORPUSCULAR HGB CONC 33.7 g/dL (33.0-37.0); MEAN PLATELET VOLUME 8.7 fl (7.2-11.7); MONO # 1.1 K/uL (0.0-0.8); MONO % 7.6 % (0.0-10.0); NEUT # 10.9 K/uL (1.8-7.0); NEUT % 77.9 % (50.0-75.0); NRBC % 0.1 % (0.0-0.0); RBC 5.21 Mil/uL (4.40-5.90); RED CELL DISTRIBUTION WIDTH 13.8 % (11.5-14.5)
[2018-08-30 12:47] LABS: ALB/GLOB RATIO 1.2 (1.0-2.1); ALBUMIN 4.3 g/dL (3.5-5.0); AST/SGOT 26 U/L (17-59); BLOOD UREA NITROGEN 15 mg/dl (9-20); CALCIUM 9.4 mg/dL (8.4-10.2); GFR NON-AFRICAN AMERICAN > 60
[2018-08-30 12:48] LABS: ALT/SGPT 31 U/L (21-72); LIPASE 58 U/L (23-300)
[2018-08-30 12:56] LABS: INR 2.2; PROTHROMBIN TIME 24.8 Seconds (9.8-13.1)
[2018-08-30 12:58] LABS: PARTIAL THROMBOPLASTIN TIME 39.4 Seconds (25.6-37.1)
[2018-08-30] MEDS ORDERED: Sodium Chloride 0.9% 50 ML IV ONE (13:08)
[2018-08-30] MEDS ORDERED: Iohexol 300 100 ML IJ ONE (13:08)
--- NOTE | 2018-08-30 14:00 | CT ---
Date of service: 08/30/2018 PROCEDURE: CT Abdomen and Pelvis with contrast HISTORY: RLQ pain COMPARISON: 04/07/2013 TECHNIQUE: Contrast dose: 95 cc Omnipaque 300 Radiation dose: Total exam DLP = 642.72 mGy-cm. This CT exam was performed using one or more of the following dose reduction techniques: Automated exposure control, adjustment of the mA and/or kV according to patient size, and/or use of iterative reconstruction technique. FINDINGS: LOWER THORAX: Minimal dependent atelectasis both lower lobes. LIVER: Unremarkable. No gross lesion or ductal dilatation. GALLBLADDER AND BILE DUCTS: Unremarkable. PANCREAS: Unremarkable. No gross lesion or ductal dilatation. SPLEEN: Mild splenomegaly. The spleen measures 13.9 cm in greatest dimension. ADRENALS: Unremarkable. No mass. KIDNEYS AND URETERS: Two left upper pole cortical cysts. Exophytic 2.9 cm cyst, 3 Hounsfield units. Pedunculated 8.9 cm cyst, 12 Hounsfield units. No calculus or hydronephrosis. VASCULATURE: No aortic aneurysm. Atherosclerotic calcification of the abdominal aorta is noted. An inferior vena caval filter is noted. BOWEL: No bowel obstruction. APPENDIX: Distention of the appendix with mural thickening, up to 14 mm. Appendicoliths noted. Periappendiceal inflammatory change. Surinder periappendiceal fluid. Findings consistent with acute appendicitis. No periappendiceal abscess. No free air. PERITONEUM: Unremarkable. No free fluid. No free air. LYMPH NODES: Unremarkable. No enlarged lymph nodes. BLADDER: Suboptimally distended. Grossly normal. REPRODUCTIVE: Minimal prostate enlargement. BONES: Left hip arthroplasty. No acute fracture. OTHER FINDINGS: None. IMPRESSION: Findings consistent with acute appendicitis. No periappendiceal abscess or free air. Additional minor findings as above.
[2018-08-30] MEDS ORDERED: Ciprofloxacin 400mg/200ml D5W 400 MG/200 ML BAG IVPB STA (14:19)
[2018-08-30] MEDS ORDERED: metroNIDAZOLE 500mg/100ml NS 100 ML IVPB STA (14:20)
--- NOTE | 2018-08-30 14:58 | CP.PCM.HP ---
History of Present Illness - History of Present Illness History of Present Illness: 72 y/o M with a PMHx of HTN, HLD, DM2 and PE presented to ED complaionign of RLQ pain that aggravated 3 days ago. Pain is described as pressure and cramping, localized to RLQ area, constant, radiates to R upper thigh, 10/10 intensity at most severe, now 6/10 after medications. Pt denies nausea, vomiting, diarrhea, recent trauma, hematemesis, blood in stools or rash. Pt has tried PO Tylenol with NO improvement. --Pt reports being adherent to all his medications. Pt loves to walk and exercise at a local gym at least 5x a week, does cardio-routine and a little weight lifting with NO issues. Pt denies chest pain or SOB at rest or with exercising. PMD: Dr Ashford Allergies: Penicillins Meds: Warfarin 3mg daily, Atorvastatin 80mg daily, [id number] mg daily, Metoprolol Tartrate 25mg BID, Metformin 500mg BID, [id number] daily, Gabapentin 300mg BID. --PMHx: HTN. HLD, DM2, PE in 2012, Depresion --PSHx: Total L hip replacement, B/L cataract removal, R inguinal hernia repair, and TURP. --FHx: NC --SHx: Pt quit smoking 36 years ago, used to smokes 3 ppd, ocassional alcohol (1x every 1-2 months), no recreational drugs. At ED: --CBC showed leukocytosis. CMP unremarkable. --INR 2.2-elevated. --CT Abdomen: Findings consistent with acute appendicitis. No periappendiceal abscess or free air. --Morphine, Zofran and IV fluids bolus administered in ED. Present on Admission - Present on Admission Any Indicators Present on Admission: Yes History of DVT/PE: Yes Review of Systems - Constitutional Constitutional: absent: Chills, Fever - EENT Nose/Mouth/Throat: absent: Dysphagia, Mouth Pain, Odynophagia, Sore Throat, Facial Pain - Cardiovascular Cardiovascular: absent: Chest Pain, Chest Pain at Rest, Claudication, Diaphoresis, Dyspnea - Respiratory Respiratory: absent: Cough, Dyspnea, Hemoptysis, Dyspnea on Exertion, Wheezing - Gastrointestinal Gastrointestinal: Abdominal Pain. absent: Hematemesis, Hematochezia, Nausea, Temesmus, Vomiting - Genitourinary Genitourinary: absent: Dysuria, Flank Pain, Hematuria - Musculoskeletal Musculoskeletal: absent: Abnormal Gait, Neck Pain, Stiffness, Tingling Past Patient History - Infectious Disease Hx of Infectious Diseases: None - Past Medical History & Family History Past Medical History?: Yes - Past Social History Alcohol: None Drugs: Denies - CARDIAC Hx Hypercholesterolemia: Yes Hx Hypertension: Yes - PULMONARY Hx Pulmonary Embolism: Yes (2012) - NEUROLOGICAL Hx Neurological Disorder: No - HEENT Hx HEENT Problems: Yes Hx Cataracts: Yes - RENAL Hx Chronic Kidney Disease: No - ENDOCRINE/METABOLIC Hx Endocrine Disorders: Yes Hx Diabetes Mellitus Type 2: Yes - HEMATOLOGICAL/ONCOLOGICAL Hx Human Immunodeficiency Virus (HIV): No - INTEGUMENTARY Hx Dermatological Problems: No - MUSCULOSKELETAL/RHEUMATOLOGICAL Hx Arthritis: Yes - GASTROINTESTINAL Hx Gastrointestinal Disorders: No - GENITOURINARY/GYNECOLOGICAL Hx Genitourinary Disorders: Yes Hx Prostate Problems: Yes (Prostate Surgery 1998) Other/Comment: Syphillis - when he was 12 yrs old. - PSYCHIATRIC Hx Psychophysiologic Disorder: No Hx Substance Use: No - SURGICAL HISTORY Hx Tonsillectomy: Yes - ANESTHESIA Hx Anesthesia: Yes Hx Anesthesia Reactions: No Hx Malignant Hyperthermia: No Meds Allergies/Adverse Reactions: Allergies Allergy/AdvReac Type Severity Reaction Status Date / Time Penicillins Allergy RASH Verified 04/18/18 22:17 Physical Exam - Constitutional Appears: No Acute Distress - Head Exam Head Exam: ATRAUMATIC, NORMAL INSPECTION - Eye Exam Eye Exam: EOMI, PERRL - ENT Exam ENT Exam: Mucous Membranes Dry - Neck Exam Neck exam: Positive for: Full Rom. Negative for: Lymphadenopathy, Meningismus - Respiratory Exam Respiratory Exam: NORMAL BREATHING PATTERN. absent: Rhonchi, Wheezes, Respiratory Distress - Cardiovascular Exam Cardiovascular Exam: REGULAR RHYTHM, +S1, +S2 - GI/Abdominal Exam GI & Abdominal Exam: Normal Bowel Sounds, Tenderness (RLQ area.). absent: Distended, Guarding, Organomegaly, Pulsatile Mass Additional comments: Rovsing sign positive, obturator sign positive. - Extremities Exam Extremities exam: Positive for: full ROM. Negative for: calf tenderness, pedal edema - Neurological Exam Neurological exam: Alert, Oriented x3 Results - Vital Signs Recent Vital Signs: Last Vital Signs Temp 98.1 F 08/30/18 11:02 Pulse 81 08/30/18 11:02 Resp 20 08/30/18 11:02 BP 148/58 L 08/30/18 11:02 Pulse Ox 99 08/30/18 14:44 - Labs Result Diagrams: 08/30/18 12:31 08/30/18 12:31 Labs: Laboratory Results - last 24 hr 08/30/18 08/30/18 08/30/18 12:31 12:31 12:31 WBC 14.0 H D RBC 5.21 Hgb 15.3 Hct 45.5 MCV 87.2 MCH 29.4 MCHC 33.7 RDW 13.8 Plt Count 233 MPV 8.7 Neut % (Auto) 77.9 H Lymph % (Auto) 12.5 L Jefferson % (Auto) 7.6 Eos % (Auto) 1.6 Baso % (Auto) 0.4 Neut # (Auto) 10.9 H Lymph # (Auto) 1.8 Jefferson # (Auto) 1.1 H Eos # (Auto) 0.2 Baso # (Auto) 0.1 PT 24.8 H INR 2.2 APTT 39.4 H Sodium 142 Potassium 4.8 Chloride 105 Carbon Dioxide 24 Anion Gap 18 BUN 15 Creatinine 0.8 Est GFR ( Amer) > 60 Est GFR (Non-Af Amer) > 60 Random Glucose 125 H Calcium 9.4 Total Bilirubin 1.0 AST 26 ALT 31 Alkaline Phosphatase 134 H Total Protein 7.8 Albumin 4.3 Globulin 3.5 Albumin/Globulin Ratio 1.2 Lipase 58 Assessment & Plan - Assessment and Plan (Free Text) Assessment: 72 y/o M with a PMHx of HTN, HLD, DM2, MDD, PE and on Warfarin is admitted for evaluation and management of acute appendicitis. --CT Abdomen: Findings consistent with acute appendicitis. No periappendiceal abscess or free air. --WBC 14-high (leukocytosis) --INR 2.2-in therapeutic range as for DVT/PE prophylaxis PLAN: >Acute appenditics. --NPO. IV Fluids: LR at 125mL/hr. --General Surgery consult, Dr Sellers. --IV Ciprofloxacin and Metronidazole --Morphine PRN for severe pain, Zofran PRN for nausea/vomiting. --Chest X-ray and EKG (in case surgical procedure is needed for pre-op medical optimization.) --Warfarin on hold. --F/U Gen Surgery recommendations. >Essential Hypertension --Home meds resumed --Considering stopping Metoprolol if surgical procedure. --Monitor vital signs. >DM 2 --Controlled, last HbA1c 6.1 on 02/16/18 --Insulin Sliding scale. --Hypoglycemia protocol --Metformin and Gabapentin on hold >Hyperlipidemia --Controlled. Unremarkable lipid panel on 02/16/18 --Atorvastatin on hold >Hx of Pulmonary Embolism (2012) --Warfarin on hold --SCD's >Major Depressive Disorder --Continue home medication. >DVT prophylaxis --SCD's Case discussed with Abdoul Contreras PGY-2 - Date & Time Date: 08/30/18 Time: 15:31
[2018-08-30] MEDS ORDERED: metroNIDAZOLE 500mg/100ml NS 100 ML IVPB ONE (14:59)
[2018-08-30] MEDS ORDERED: Ciprofloxacin 400mg/200ml D5W 400 MG/200 ML BAG IVPB ONE (14:59)
[2018-08-30] MEDS: Lactated Ringer's 1,000 ML IV SCH ×2 (15:13→23:29)
--- NOTE | 2018-08-30 15:16 | CP.PCM.CON ---
<Pj Ochoa - Last Filed: 08/30/18 15:13> History of Present Illness - History of Present Illness History of Present Illness: General Surgery Consult Note for Dr. Rodriguez Consult: Appendicitis CC: Abdominal pain HPI: 72 year old male, past medical history of HTN, DM, and PE (on Coumadin w/ IVC), presents to the [facility] ED with right lower quadrant pain. Patient states pain started sunday night and continued to worsen until he saw his PMD on Sunday. They recommended outpatient ultrasound however he did not follow up. The pain continued to worsen and he came to the ED. States he did not take anything to alleviate the pain. Movement worsens his symptoms. Initially felt under the weather with subjective fevers and chills. Passing gas and having bowel movements. Denies nausea, vomiting, diarrhea, SOB, chest pain, or urinary symptoms. PMH: See anove PSH: Right inguinal hernia repair, left hip surgery, prostate surgery FH: Noncontributory SH: Quit tobacco 36 years ago, social drinker, denies drugs ALL: PCNs Meds: See MAR Review of Systems - Constitutional Constitutional: absent: Chills, Fever - EENT Eyes: absent: Blurred Vision, Change in Vision Nose/Mouth/Throat: absent: Nasal Congestion, Nasal Discharge - Cardiovascular Cardiovascular: absent: Chest Pain, Dyspnea - Respiratory Respiratory: absent: Cough, Dyspnea - Gastrointestinal Gastrointestinal: Abdominal Pain. absent: Bloating, Nausea, Vomiting - Genitourinary Genitourinary: absent: Difficulty Urinating, Dysuria - Musculoskeletal Musculoskeletal: absent: Back Pain, Neck Pain - Integumentary Integumentary: absent: Bleeding Lesions, Changing Lesions - Neurological Neurological: absent: Confusion, Dizziness - Psychiatric Psychiatric: absent: Anxiety, Depression Past Patient History - Infectious Disease Hx of Infectious Diseases: None - Past Medical History & Family History Past Medical History?: Yes - Past Social History Alcohol: None Drugs: Denies - CARDIAC Hx Hypercholesterolemia: Yes Hx Hypertension: Yes - PULMONARY Hx Pulmonary Embolism: Yes (2012) - NEUROLOGICAL Hx Neurological Disorder: No - HEENT Hx HEENT Problems: Yes Hx Cataracts: Yes - RENAL Hx Chronic Kidney Disease: No - ENDOCRINE/METABOLIC Hx Endocrine Disorders: Yes Hx Diabetes Mellitus Type 2: Yes - HEMATOLOGICAL/ONCOLOGICAL Hx Human Immunodeficiency Virus (HIV): No - INTEGUMENTARY Hx Dermatological Problems: No - MUSCULOSKELETAL/RHEUMATOLOGICAL Hx Arthritis: Yes - GASTROINTESTINAL Hx Gastrointestinal Disorders: No - GENITOURINARY/GYNECOLOGICAL Hx Genitourinary Disorders: Yes Hx Prostate Problems: Yes (Prostate Surgery 1998) Other/Comment: Syphillis - when he was 12 yrs old. - PSYCHIATRIC Hx Psychophysiologic Disorder: No Hx Substance Use: No - SURGICAL HISTORY Hx Tonsillectomy: Yes - ANESTHESIA Hx Anesthesia: Yes Hx Anesthesia Reactions: No Hx Malignant Hyperthermia: No Meds Allergies/Adverse Reactions: Allergies Allergy/AdvReac Type Severity Reaction Status Date / Time Penicillins Allergy RASH Verified 04/18/18 22:17 - Medications Medications: Current Medications Ciprofloxacin (Cipro 400mg/200ml Dsw) 400 mg in 200 mls @ 200 mls/hr IVPB STAT STA; Protocol Stop: 08/30/18 15:18 Metronidazole (Flagyl 500mg/100ml Ns) 100 mls @ 100 mls/hr IVPB STAT STA; Protocol Stop: 08/30/18 15:19 Lactated Ringer's (Lactated Ringer's) 1,000 mls @ 125 mls/hr IV .Q8H [facility] Ciprofloxacin (Cipro 400mg/200ml Dsw) 400 mg in 200 mls @ 200 mls/hr IVPB Q12 [facility]; Protocol Metronidazole (Flagyl 500mg/100ml Ns) 100 mls @ 100 mls/hr IVPB Q8 [facility]; Protocol Losartan Potassium (Cozaar) 100 mg PO DAILY [facility] Metoprolol Tartrate (Lopressor) 25 mg PO Q12 [facility] Morphine Sulfate (Morphine) 4 mg IVP Q4 PRN PRN Reason: Pain, Mild (1-3) Sertraline HCl (Zoloft) 10 mg PO DAILY [facility] Physical Exam - Constitutional Appears: Well, No Acute Distress - Head Exam Head Exam: ATRAUMATIC, NORMAL INSPECTION, NORMOCEPHALIC - Eye Exam Eye Exam: EOMI - ENT Exam ENT Exam: Mucous Membranes Moist - Respiratory Exam Respiratory Exam: NORMAL BREATHING PATTERN. absent: Respiratory Distress - Cardiovascular Exam Cardiovascular Exam: REGULAR RHYTHM - GI/Abdominal Exam GI & Abdominal Exam: Distended, Normal Bowel Sounds, Soft, Tenderness Additional comments: Localized RLQ tenderness to palpation at McBurney's point - Neurological Exam Neurological exam: Alert, Oriented x3 - Psychiatric Exam Psychiatric exam: Normal Affect, Normal Mood - Skin Skin Exam: Dry, Intact, Normal Color, Warm Results - Vital Signs Recent Vital Signs: Last Vital Signs Temp 98.1 F 08/30/18 11:02 Pulse 81 08/30/18 11:02 Resp 20 08/30/18 11:02 BP 148/58 L 08/30/18 11:02 Pulse Ox 99 08/30/18 14:44 - Labs Result Diagrams: 08/30/18 12:31 08/30/18 12:31 Labs: Laboratory Results - last 24 hr 08/30/18 08/30/18 08/30/18 12:31 12:31 12:31 WBC 14.0 H D RBC 5.21 Hgb 15.3 Hct 45.5 MCV 87.2 MCH 29.4 MCHC 33.7 RDW 13.8 Plt Count 233 MPV 8.7 Neut % (Auto) 77.9 H Lymph % (Auto) 12.5 L Runnels % (Auto) 7.6 Eos % (Auto) 1.6 Baso % (Auto) 0.4 Neut # (Auto) 10.9 H Lymph # (Auto) 1.8 Runnels # (Auto) 1.1 H Eos # (Auto) 0.2 Baso # (Auto) 0.1 PT 24.8 H INR 2.2 APTT 39.4 H Sodium 142 Potassium 4.8 Chloride 105 Carbon Dioxide 24 Anion Gap 18 BUN 15 Creatinine 0.8 Est GFR ( Amer) > 60 Est GFR (Non-Af Amer) > 60 Random Glucose 125 H Calcium 9.4 Total Bilirubin 1.0 AST 26 ALT 31 Alkaline Phosphatase 134 H Total Protein 7.8 Albumin 4.3 Globulin 3.5 Albumin/Globulin Ratio 1.2 Lipase 58 Assessment & Plan - Assessment and Plan (Free Text) Assessment: 72M w/ appendicitis Plan: Continue IV Abx IVF NPO Antiemetics and analgesics Monitor INR Serial abdominal exams Continue to monitor vitals Will continue to follow Further recommendations per Dr. Jennifer Ochoa PGY1 <Dayron Rodriguez - Last Filed: 08/30/18 15:33> History of Present Illness - History of Present Illness History of Present Illness: Patient was seen and examined at the bedside. Agree with resident's note above. Meds - Medications Medications: Current Medications Dextrose (Dextrose 50% Inj) 0 ml IV STAT PRN; Protocol PRN Reason: Hypoglycemia Protocol Dextrose (Glutose 15) 0 gm PO ONCE PRN; Protocol PRN Reason: Hypoglycemia Protocol Glucagon (Glucagen Diagnostic Kit) 0 mg IM STAT PRN; Protocol PRN Reason: Hypoglycemia Protocol Lactated Ringer's (Lactated Ringer's) 1,000 mls @ 125 mls/hr IV .Q8H [facility] Last Admin: 08/30/18 15:13 Dose: 125 mls/hr Ciprofloxacin (Cipro 400mg/200ml Dsw) 400 mg in 200 mls @ 200 mls/hr IVPB Q12 [facility]; Protocol Metronidazole (Flagyl 500mg/100ml Ns) 100 mls @ 100 mls/hr IVPB Q8 [facility]; Protocol Insulin Human Regular (Humulin R) 0 units SC ACCU-CHECK [facility]; Protocol Losartan Potassium (Cozaar) 100 mg PO DAILY [facility] Metoprolol Tartrate (Lopressor) 25 mg PO Q12 [facility] Morphine Sulfate (Morphine) 4 mg IVP Q4 PRN PRN Reason: Pain, Mild (1-3) Sertraline HCl (Zoloft) 100 mg PO DAILY [facility] Results - Vital Signs Recent Vital Signs: Last Vital Signs Temp 98.1 F 08/30/18 11:02 Pulse 81 08/30/18 11:02 Resp 20 08/30/18 11:02 BP 148/58 L 08/30/18 11:02 Pulse Ox 99 08/30/18 14:44 - Labs Result Diagrams: 08/30/18 12:31 08/30/18 12:31 Labs: Laboratory Results - last 24 hr 08/30/18 08/30/18 08/30/18 12:31 12:31 12:31 WBC 14.0 H D RBC 5.21 Hgb 15.3 Hct 45.5 MCV 87.2 MCH 29.4 MCHC 33.7 RDW 13.8 Plt Count 233 MPV 8.7 Neut % (Auto) 77.9 H Lymph % (Auto) 12.5 L Runnels % (Auto) 7.6 Eos % (Auto) 1.6 Baso % (Auto) 0.4 Neut # (Auto) 10.9 H Lymph # (Auto) 1.8 Runnels # (Auto) 1.1 H Eos # (Auto) 0.2 Baso # (Auto) 0.1 PT 24.8 H INR 2.2 APTT 39.4 H Sodium 142 Potassium 4.8 Chloride 105 Carbon Dioxide 24 Anion Gap 18 BUN 15 Creatinine 0.8 Est GFR ( Amer) > 60 Est GFR (Non-Af Amer) > 60 Random Glucose 125 H Calcium 9.4 Total Bilirubin 1.0 AST 26 ALT 31 Alkaline Phosphatase 134 H Total Protein 7.8 Albumin 4.3 Globulin 3.5 Albumin/Globulin Ratio 1.2 Lipase 58 BBK History Checked 08/30/18 14:50 WBC RBC Hgb Hct MCV MCH MCHC RDW Plt Count MPV Neut % (Auto) Lymph % (Auto) Runnels % (Auto) Eos % (Auto) Baso % (Auto) Neut # (Auto) Lymph # (Auto) Runnels # (Auto) Eos # (Auto) Baso # (Auto) PT INR APTT Sodium Potassium Chloride Carbon Dioxide Anion Gap BUN Creatinine Est GFR ( Amer) Est GFR (Non-Af Amer) Random Glucose Calcium Total Bilirubin AST ALT Alkaline Phosphatase Total Protein Albumin Globulin Albumin/Globulin Ratio Lipase BBK History Checked Patient has bt - Imaging and Cardiology CT scan - abdomen Status: Image reviewed by me, Report reviewed by me Assessment & Plan - Assessment and Plan (Free Text) Plan: No surgical intervention at present time secondary to patient having elevated INR and being on Coumadin - repeat labs in am - Will follow
[2018-08-30] MEDS ORDERED: Glucagon Recombinant 1 mg Inj IM PRN (15:22)
[2018-08-30] MEDS ORDERED: Dextrose 50% SYRINGE Inj (50 ml) IV PRN (15:22)
--- NOTE | 2018-08-30 15:48 | RAD ---
Date of service: 08/30/2018 HISTORY: Preop. Hx of PE COMPARISON: Comparison chest dated 04/18/2018. FINDINGS: LUNGS: Minor bibasilar atelectasis.. PLEURA: No significant pleural effusion identified, no pneumothorax apparent. CARDIOVASCULAR: Mild aortic atherosclerotic calcification present. Mild cardiomegaly.. No pulmonary vascular congestion. OSSEOUS STRUCTURES: No significant abnormalities. VISUALIZED UPPER ABDOMEN: Normal. OTHER FINDINGS: None. IMPRESSION: Mild bibasilar atelectasis.
[2018-08-30] MEDS ORDERED: Morphine 4 MG/ML VIAL IVP PRN (16:00)
[2018-08-30] MEDS: Insulin Regular 100 units/ml SC SCH ×2 (17:22→22:50)
[2018-08-30] MEDS: metroNIDAZOLE 500mg/100ml NS 100 ML IVPB SCH (19:02)
[2018-08-30] MEDS: Ciprofloxacin 400mg/200ml D5W 400 MG/200 ML BAG IVPB SCH (22:44)
[2018-08-31] MEDS: metroNIDAZOLE 500mg/100ml NS 100 ML IVPB SCH ×3 (00:16→16:34)
[2018-08-31 07:11] LABS: BASO % 0.3 % (0.0-2.0); EOS % 0.1 % (0.0-4.0); HEMOGLOBIN 14.2 g/dL (12.0-18.0); LYMPH # 1.6 K/uL (1.0-4.3); LYMPH % 9.3 % (20.0-40.0); MEAN CELL VOLUME 89.1 fl (80.0-94.0); MEAN CORPUSCULAR HEMOGLOBIN 29.8 pg (27.0-31.0); MEAN CORPUSCULAR HGB CONC 33.5 g/dL (33.0-37.0); MEAN PLATELET VOLUME 8.5 fl (7.2-11.7); MONO # 1.5 K/uL (0.0-0.8); MONO % 8.5 % (0.0-10.0); NEUT # 14.4 K/uL (1.8-7.0); NEUT % 81.8 % (50.0-75.0); NRBC % 0.1 % (0.0-0.0); PLATELET COUNT 239 K/uL (130-400); RBC 4.77 Mil/uL (4.40-5.90); RED CELL DISTRIBUTION WIDTH 13.8 % (11.5-14.5); WHITE BLOOD COUNT 17.6 K/uL (4.8-10.8)
[2018-08-31 07:26] LABS: BLOOD UREA NITROGEN 14 mg/dl (9-20); CALCIUM 8.3 mg/dL (8.4-10.2); GFR NON-AFRICAN AMERICAN > 60; INR 2.2; PROTHROMBIN TIME 24.9 Seconds (9.8-13.1)
[2018-08-31] MEDS: Ciprofloxacin 400mg/200ml D5W 400 MG/200 ML BAG IVPB SCH ×2 (08:11→21:00)
[2018-08-31] MEDS: Insulin Regular 100 units/ml SC SCH ×4 (08:12→23:00)
[2018-08-31] MEDS: Lactated Ringer's 1,000 ML IV SCH ×3 (08:12→22:30)
--- NOTE | 2018-08-31 09:08 | CP.PCM.PN ---
<Pj Ochoa - Last Filed: 08/31/18 20:11> Subjective - Date & Time of Evaluation Date of Evaluation: 08/31/18 Time of Evaluation: 09:05 - Subjective Subjective: General Surgery Progress Note for Dr. Glez 72M seen and evaluated at bedside this morning. Patient had fevers, tmax of 102.8 overnight and tachycardic. Complaining of abdominal pain, worse in the RLQ. No nausea or vomiting. Patient is passing gas and had a small BM. No difficulty with urination. Denies SOB, CP, headaches, or dizziness. Objective - Vital Signs/Intake and Output Vital Signs (last 24 hours): Temp Pulse Resp BP Pulse Ox 98.8 F 96 H 20 118/67 93 L 08/31/18 08:21 08/31/18 08:21 08/31/18 08:21 08/31/18 08:21 08/31/18 08:21 - Medications Medications: Current Medications Acetaminophen (Tylenol 650 Mg Supp) 650 mg ND ONCE PRN PRN Reason: Fever >100.4 F Last Admin: 08/30/18 23:28 Dose: 650 mg Dextrose (Dextrose 50% Inj) 0 ml IV STAT PRN; Protocol PRN Reason: Hypoglycemia Protocol Dextrose (Glutose 15) 0 gm PO ONCE PRN; Protocol PRN Reason: Hypoglycemia Protocol Glucagon (Glucagen Diagnostic Kit) 0 mg IM STAT PRN; Protocol PRN Reason: Hypoglycemia Protocol Hydromorphone HCl (Dilaudid) 1 mg IVP Q4 PRN PRN Reason: Pain, moderate (4-7) Last Admin: 08/31/18 06:34 Dose: 1 mg Lactated Ringer's (Lactated Ringer's) 1,000 mls @ 125 mls/hr IV .Q8H [facility] Last Admin: 08/31/18 08:12 Dose: 125 mls/hr Ciprofloxacin (Cipro 400mg/200ml Dsw) 400 mg in 200 mls @ 200 mls/hr IVPB Q12 [facility]; Protocol Last Admin: 08/31/18 08:11 Dose: 200 mls/hr Metronidazole (Flagyl 500mg/100ml Ns) 100 mls @ 100 mls/hr IVPB Q8 [facility]; Protocol Last Admin: 08/31/18 08:11 Dose: 100 mls/hr Insulin Human Regular (Humulin R) 0 units SC ACCU-CHECK [facility]; Protocol Last Admin: 08/31/18 08:12 Dose: Not Given Losartan Potassium (Cozaar) 100 mg PO DAILY [facility] Last Admin: 08/31/18 08:13 Dose: 100 mg Metoprolol Tartrate (Lopressor) 25 mg PO Q12 [facility] Last Admin: 08/31/18 08:13 Dose: 25 mg Sertraline HCl (Zoloft) 100 mg PO DAILY [facility] Last Admin: 08/31/18 08:13 Dose: 100 mg - Labs Labs: 08/31/18 05:35 08/31/18 05:35 PT 24.9 Seconds (9.8-13.1) H 08/31/18 05:35 INR 2.2 08/31/18 05:35 APTT 39.4 Seconds (25.6-37.1) H 08/30/18 12:31 - Constitutional Appears: Well, Non-toxic, No Acute Distress - Head Exam Head Exam: ATRAUMATIC, NORMAL INSPECTION, NORMOCEPHALIC - Eye Exam Eye Exam: EOMI - ENT Exam ENT Exam: Mucous Membranes Moist - Respiratory Exam Respiratory Exam: Clear to Ausculation Bilateral, NORMAL BREATHING PATTERN - GI/Abdominal Exam GI & Abdominal Exam: Distended, Tenderness, Normal Bowel Sounds, Rebound. absent: Guarding, Soft - Neurological Exam Neurological Exam: Alert, Awake - Psychiatric Exam Psychiatric exam: Normal Affect, Normal Mood - Skin Skin Exam: Dry, Intact, Normal Color, Warm Assessment and Plan - Assessment and Plan (Free Text) Assessment: 72M w/ acute appendicitis Plan: NPO IVF IV Abx Antiemetics and analgesics Serial abdominal exams FFP Type and Cross Will likely go to OR today secondary to clinical status Further recommendations per Dr. Newton Ochoa PGY1 <Trace Glez - Last Filed: 08/31/18 20:15> Objective - Vital Signs/Intake and Output Vital Signs (last 24 hours): Temp Pulse Resp BP Pulse Ox 99.9 F H 83 19 142/72 93 L 08/31/18 19:53 08/31/18 19:53 08/31/18 19:53 08/31/18 19:53 08/31/18 19:53 - Medications Medications: Current Medications Acetaminophen (Tylenol 650 Mg Supp) 650 mg ND ONCE PRN PRN Reason: Fever >100.4 F Last Admin: 08/30/18 23:28 Dose: 650 mg Acetaminophen (Tylenol 650 Mg Supp) 650 mg ND Q6 PRN PRN Reason: Fever >100.4 F Last Admin: 08/31/18 16:55 Dose: 650 mg Dextrose (Dextrose 50% Inj) 0 ml IV STAT PRN; Protocol PRN Reason: Hypoglycemia Protocol Dextrose (Glutose 15) 0 gm PO ONCE PRN; Protocol PRN Reason: Hypoglycemia Protocol Glucagon (Glucagen Diagnostic Kit) 0 mg IM STAT PRN; Protocol PRN Reason: Hypoglycemia Protocol Hydromorphone HCl (Dilaudid) 1 mg IVP Q4 PRN PRN Reason: Pain, moderate (4-7) Last Admin: 08/31/18 16:45 Dose: 1 mg Lactated Ringer's (Lactated Ringer's) 1,000 mls @ 125 mls/hr IV .Q8H [facility] Last Admin: 08/31/18 16:37 Dose: 125 mls/hr Ciprofloxacin (Cipro 400mg/200ml Dsw) 400 mg in 200 mls @ 200 mls/hr IVPB Q12 [facility]; Protocol Last Admin: 08/31/18 08:11 Dose: 200 mls/hr Metronidazole (Flagyl 500mg/100ml Ns) 100 mls @ 100 mls/hr IVPB Q8 [facility]; Protocol Last Admin: 08/31/18 16:34 Dose: 100 mls/hr Insulin Human Regular (Humulin R) 0 units SC ACCU-CHECK [facility]; Protocol Last Admin: 08/31/18 16:37 Dose: Not Given Losartan Potassium (Cozaar) 100 mg PO DAILY [facility] Last Admin: 08/31/18 08:13 Dose: 100 mg Metoprolol Tartrate (Lopressor) 25 mg PO Q12 [facility] Last Admin: 08/31/18 08:13 Dose: 25 mg Sertraline HCl (Zoloft) 100 mg PO DAILY [facility] Last Admin: 08/31/18 08:13 Dose: 100 mg - Labs Labs: 08/31/18 05:35 08/31/18 05:35 PT 20.3 Seconds (9.8-13.1) H 08/31/18 18:29 INR 1.8 08/31/18 18:29 APTT 39.4 Seconds (25.6-37.1) H 08/30/18 12:31 Assessment and Plan - Assessment and Plan (Free Text) Plan: agree with resident +rlq pain, febrile, elevated WBC Abd: +mcburneys, soft, non distended a/p to OR for Laparoscopic Appendectomy possible open -Vit K, Transfuese FFP -
[2018-08-31] MEDS ORDERED: Phytonadione 10 mg/ml Inj (Adult) IVPB ONE (11:19)
[2018-08-31 11:25] LABS: BANDS 2 % (0-2); LYMPHOCYTE 11 % (20-50); MONOCYTE 5 % (0-10); MYELOCYTE 1 % (0-0); NEUTROPHIL 81 % (42-75); TOTAL CELLS COUNTED 100
[2018-08-31 11:26] LABS: PLATELET ESTIMATE NORMAL (NORMAL)
[2018-08-31] MEDS ORDERED: Phytonadione 10 MG in Sodium Chloride 0.9% 50 ML IV ONE (11:30)
--- NOTE | 2018-08-31 11:44 | CP.PCM.PN ---
Subjective - Date & Time of Evaluation Date of Evaluation: 08/31/18 Time of Evaluation: 10:10 - Subjective Subjective: 72 y/o M was evaluated and examined by bedside. Pt reports feeling not better. Pt complains of RLQabdominal pain that is improved with medication but recurs. On labs, leukocytosis increased. Pt had fever overnight, 102.8 F, NPO. Objective - Vital Signs/Intake and Output Vital Signs (last 24 hours): Temp Pulse Resp BP Pulse Ox 98.8 F 96 H 20 118/67 93 L 08/31/18 08:21 08/31/18 08:21 08/31/18 08:21 08/31/18 08:21 08/31/18 08:21 - Medications Medications: Current Medications Acetaminophen (Tylenol 650 Mg Supp) 650 mg NV ONCE PRN PRN Reason: Fever >100.4 F Last Admin: 08/30/18 23:28 Dose: 650 mg Dextrose (Dextrose 50% Inj) 0 ml IV STAT PRN; Protocol PRN Reason: Hypoglycemia Protocol Dextrose (Glutose 15) 0 gm PO ONCE PRN; Protocol PRN Reason: Hypoglycemia Protocol Glucagon (Glucagen Diagnostic Kit) 0 mg IM STAT PRN; Protocol PRN Reason: Hypoglycemia Protocol Hydromorphone HCl (Dilaudid) 1 mg IVP Q4 PRN PRN Reason: Pain, moderate (4-7) Last Admin: 08/31/18 11:21 Dose: 1 mg Lactated Ringer's (Lactated Ringer's) 1,000 mls @ 125 mls/hr IV .Q8H [facility] Last Admin: 08/31/18 08:12 Dose: 125 mls/hr Ciprofloxacin (Cipro 400mg/200ml Dsw) 400 mg in 200 mls @ 200 mls/hr IVPB Q12 [facility]; Protocol Last Admin: 08/31/18 08:11 Dose: 200 mls/hr Metronidazole (Flagyl 500mg/100ml Ns) 100 mls @ 100 mls/hr IVPB Q8 [facility]; Protocol Last Admin: 08/31/18 08:11 Dose: 100 mls/hr Phytonadione 10 mg/ Sodium (Chloride) 51 mls @ 102 mls/hr IV ONCE ONE Stop: 08/31/18 11:59 Insulin Human Regular (Humulin R) 0 units SC ACCU-CHECK [facility]; Protocol Last Admin: 08/31/18 08:12 Dose: Not Given Losartan Potassium (Cozaar) 100 mg PO DAILY [facility] Last Admin: 08/31/18 08:13 Dose: 100 mg Metoprolol Tartrate (Lopressor) 25 mg PO Q12 [facility] Last Admin: 08/31/18 08:13 Dose: 25 mg Sertraline HCl (Zoloft) 100 mg PO DAILY [facility] Last Admin: 08/31/18 08:13 Dose: 100 mg - Labs Labs: 08/31/18 05:35 08/31/18 05:35 PT 24.9 Seconds (9.8-13.1) H 08/31/18 05:35 INR 2.2 08/31/18 05:35 APTT 39.4 Seconds (25.6-37.1) H 08/30/18 12:31 - Constitutional Appears: No Acute Distress - Head Exam Head Exam: ATRAUMATIC, NORMAL INSPECTION - Eye Exam Eye Exam: EOMI, PERRL - ENT Exam ENT Exam: Mucous Membranes Dry - Neck Exam Neck Exam: Full ROM, Normal Inspection. absent: Meningismus - Respiratory Exam Respiratory Exam: NORMAL BREATHING PATTERN. absent: Rhonchi, Wheezes, Respiratory Distress - Cardiovascular Exam Cardiovascular Exam: REGULAR RHYTHM, +S1, +S2 - GI/Abdominal Exam GI & Abdominal Exam: Guarding (mild on RLQ), Soft, Tenderness (RLQ), Normal Bowel Sounds. absent: Distended, Firm - Extremities Exam Extremities Exam: Full ROM. absent: Calf Tenderness, Pedal Edema - Back Exam Back Exam: absent: CVA tenderness (L), CVA tenderness (R) - Neurological Exam Neurological Exam: Alert, Awake, Oriented x3 - Psychiatric Exam Psychiatric exam: Normal Mood Assessment and Plan - Assessment and Plan (Free Text) Assessment: 72 y/o M with a PMHx of HTN, HLD, DM2, MDD, PE and on Warfarin is admitted for evaluation and management of acute appendicitis. --CT Abdomen: Findings consistent with acute appendicitis. No periappendiceal abscess or free air. --WBC 14-high (leukocytosis), increased to 17.6-high. --INR 2.2 again today. --Appendectomy planned to be later today. --Pt medically optimized for surgical procedure. Will administer IV Vitamin K 10mg, and 2 FFP during surgery. PLAN: >Acute appenditics. --NPO. IV Fluids: LR at 125mL/hr. --General Surgery consult, Dr Rodriguez. --IV Ciprofloxacin and Metronidazole --Morphine PRN for severe pain, Zofran PRN for nausea/vomiting. --Chest X-ray and EKG were unremarkable. Pt medically optimized for emergent surgical procedure. --Warfarin on hold. --Appendectomy planned to be later today. --Will administer IV Vitamin K 10mg, and 2 FFP during surgery. >Essential Hypertension --Home meds resumed --Considering stopping Metoprolol if surgical procedure. --Monitor vital signs. >DM 2 --Controlled, last HbA1c 6.1 on 02/16/18 --Insulin Sliding scale. --Hypoglycemia protocol --Keep Metformin and Gabapentin on hold >Hyperlipidemia --Controlled. Unremarkable lipid panel on 02/16/18 --Keep Atorvastatin on hold >Hx of Pulmonary Embolism (2012) --Warfarin on hold --SCD's >Major Depressive Disorder --Continue home medication. >DVT prophylaxis --SCD's --INR 2.2 again today, in therapeutic range as for DVT/PE prophylaxis --After surgery, considering Lovenox 40mg daily beginning tomorrow. Case discussed with Dr Aria Brunner PGY-2
[2018-08-31 18:49] LABS: INR 1.8; PROTHROMBIN TIME 20.3 Seconds (9.8-13.1)
[2018-08-31] MEDS ORDERED: Rocuronium 10 mg/ml (5 ml) ONE (19:51)
[2018-08-31] MEDS ORDERED: Lidocaine 4% (Laryng-O-Jet) Kit MM ONE (19:51)
[2018-08-31] MEDS ORDERED: Midazolam 2 MG/2 ML VIAL ONE (19:51)
[2018-08-31] MEDS ORDERED: Etomidate 20 mg/10ml Inj IV ONE (19:52)
[2018-08-31] MEDS ORDERED: Sodium Chloride 0.9% 1,000 ML IV ONE ×4 (20:20→21:20)
[2018-08-31] MEDS ORDERED: Ciprofloxacin 400mg/200ml D5W IVPB ONE (20:30)
[2018-08-31] MEDS ORDERED: ePHEDrine 50 mg/ml Inj ONE (21:13)
[2018-08-31] MEDS ORDERED: Sodium Chloride 0.9% 500 ML IV ONE (21:30)
[2018-08-31] MEDS ORDERED: Lactated Ringer's 1,000 ML IV ONE (21:40)
[2018-08-31] MEDS ORDERED: Neostigmine 1:1000 (1 mg/ml) Inj ONE (22:27)
[2018-08-31] MEDS ORDERED: Bupivacaine HCl 0.5% PF (30 ml) Inj ONE (22:41)
--- NOTE | 2018-08-31 22:56 | PCM.SURG1 ---
Surgeon's Initial Post Op Note - Surgeon's Notes Surgeon: Dr. Glez Alignment Mechanic: Dr. Ochoa PGY1 Type of Anesthesia: General Endo Pre-Operative Diagnosis: acute appendicitis Operative Findings: see operative note Post-Operative Diagnosis: same Operation Performed: Laparoscopic appendectomy Specimen/Specimens Removed: appendix Estimated Blood Loss: EBL {In ML}: 20 Blood Products Given: FFP Drains Used: No Drains Post-Op Condition: Good Date of Surgery/Procedure: 08/31/18 Time of Surgery/Procedure: 22:56
[2018-08-31] MEDS ORDERED: HYDROmorphone 0.5 mg/0.5 ml ISec IVP PRN (22:57)
[2018-08-31] MEDS ORDERED: Oxycodone/Acetaminophen 5/325 mg Tab PO PRN ×2 (23:01)
--- NOTE | 2018-08-31 23:53 | CARD ---
APPROVED REPORT Date of service: 08/30/2018 EKG Measurement Heart [id number] <Conclusion> Sinus rhythm with occasional premature ventricular complexes Otherwise normal ECG
[2018-09-01] MEDS ORDERED: Morphine 4 MG/ML VIAL IVP PRN (00:02)
[2018-09-01] MEDS: Lactated Ringer's 1,000 ML IV SCH ×4 (00:55→21:42)
[2018-09-01] MEDS: metroNIDAZOLE 500mg/100ml NS 100 ML IVPB SCH ×3 (01:45→17:38)
[2018-09-01] MEDS ORDERED: Povidone Iodine Topical 10% Sol ONE (03:50)
[2018-09-01] MEDS: Morphine 4 MG/ML VIAL IVP PRN ×2 (04:26→21:28)
[2018-09-01] MEDS ORDERED: Oxycodone/Acetaminophen 5/325 mg Tab PO PRN ×2 (06:00)
[2018-09-01] MEDS: Insulin Regular 100 units/ml SC SCH ×4 (06:34→22:16)
--- NOTE | 2018-09-01 07:35 | CP.PCM.PN ---
<Pj Ochoa - Last Filed: 09/01/18 07:33> Subjective - Date & Time of Evaluation Date of Evaluation: 09/01/18 Time of Evaluation: 07:33 - Subjective Subjective: General Surgery Progress Note for Dr. Glez 72M seen and evaluated at bedside this morning. Patient had fevers overnight, tmax of 102.6 and tachycardic. He has been having the urge to void, but difficulty with urination. Nurses have been bladder scanning and straight cathing for relief which showed a few clots of blood in urine. He also complains of diffuse abdominal pain which is controlled by medication. He has been belching to relief pressure. Patient had a bowel movement and is passing flatus. Denies n/v/d, SOB, CP, headaches, or dizziness. Objective - Vital Signs/Intake and Output Vital Signs (last 24 hours): Temp Pulse Resp BP Pulse Ox 100.2 F H 89 21 124/62 94 L 09/01/18 04:20 09/01/18 04:20 09/01/18 04:20 09/01/18 04:20 09/01/18 04:20 Intake and Output: 09/01/18 09/01/18 06:59 18:59 Intake Total 4957 Output Total 420 Balance 4537 - Medications Medications: Current Medications Acetaminophen (Tylenol 650 Mg Supp) 650 mg [place] ONCE PRN PRN Reason: Fever >100.4 F Last Admin: 08/30/18 23:28 Dose: 650 mg Acetaminophen (Tylenol 650 Mg Supp) 650 mg MA Q6 PRN PRN Reason: Fever >100.4 F Last Admin: 09/01/18 01:44 Dose: 650 mg Dextrose (Dextrose 50% Inj) 0 ml IV STAT PRN; Protocol PRN Reason: Hypoglycemia Protocol Dextrose (Glutose 15) 0 gm PO ONCE PRN; Protocol PRN Reason: Hypoglycemia Protocol Glucagon (Glucagen Diagnostic Kit) 0 mg IM STAT PRN; Protocol PRN Reason: Hypoglycemia Protocol Hydromorphone HCl (Dilaudid) 1 mg IVP Q4 PRN PRN Reason: Pain, severe (8-10) Lactated Ringer's (Lactated Ringer's) 1,000 mls @ 125 mls/hr IV .Q8H [facility] Last Admin: 09/01/18 06:34 Dose: 125 mls/hr Ciprofloxacin (Cipro 400mg/200ml Dsw) 400 mg in 200 mls @ 200 mls/hr IVPB Q12 [facility]; Protocol Last Admin: 08/31/18 21:00 Dose: Not Given Metronidazole (Flagyl 500mg/100ml Ns) 100 mls @ 100 mls/hr IVPB Q8 [facility]; Protocol Last Admin: 09/01/18 01:45 Dose: 100 mls/hr Insulin Human Regular (Humulin R) 0 units SC ACCU-CHECK [facility]; Protocol Last Admin: 09/01/18 06:34 Dose: Not Given Losartan Potassium (Cozaar) 100 mg PO DAILY [facility] Last Admin: 08/31/18 08:13 Dose: 100 mg Metoprolol Tartrate (Lopressor) 25 mg PO Q12 [facility] Last Admin: 09/01/18 00:56 Dose: 25 mg Morphine Sulfate (Morphine) 1 mg IVP Q6 PRN PRN Reason: Pain, Mild (1-3) Morphine Sulfate (Morphine) 2 mg IVP Q6 PRN PRN Reason: Pain, moderate (4-7) Last Admin: 09/01/18 04:26 Dose: 2 mg Oxycodone/Acetaminophen (Percocet 5/325 Mg Tab) 1 tab PO Q4 PRN PRN Reason: Pain, moderate (4-7) Stop: 09/04/18 06:01 Oxycodone/Acetaminophen (Percocet 5/325 Mg Tab) 2 tab PO Q4 PRN PRN Reason: Pain, severe (8-10) Stop: 09/04/18 06:01 Sertraline HCl (Zoloft) 100 mg PO DAILY [facility] Last Admin: 08/31/18 08:13 Dose: 100 mg - Labs Labs: 08/31/18 05:35 08/31/18 05:35 PT 20.3 Seconds (9.8-13.1) H 08/31/18 18:29 INR 1.8 08/31/18 18:29 APTT 39.4 Seconds (25.6-37.1) H 08/30/18 12:31 - Constitutional Appears: Well, Non-toxic, No Acute Distress - Head Exam Head Exam: ATRAUMATIC, NORMAL INSPECTION, NORMOCEPHALIC - Eye Exam Eye Exam: EOMI - ENT Exam ENT Exam: Mucous Membranes Moist - Respiratory Exam Respiratory Exam: NORMAL BREATHING PATTERN. absent: Respiratory Distress - Cardiovascular Exam Cardiovascular Exam: Tachycardia, REGULAR RHYTHM - GI/Abdominal Exam GI & Abdominal Exam: Distended, Tenderness. absent: Guarding, Rigid, Soft, Rebound - Neurological Exam Neurological Exam: Alert, Awake - Psychiatric Exam Psychiatric exam: Normal Affect, Normal Mood - Skin Skin Exam: Dry, Intact, Normal Color, Warm Additional comments: incisional sites c/d/i Assessment and Plan - Assessment and Plan (Free Text) Assessment: 72M s/p laparoscopic appendectomy POD1 Plan: Regular diet as tolerated Strict Is and Os If patient unable to void on his own, will need guzmán Continue IV abx Antiemetics and analgesics Encourage ambulation and IS use Further recommendations per Dr. Newton Ochoa PGY1 <Trace Glez - Last Filed: 09/01/18 15:22> Objective - Vital Signs/Intake and Output Vital Signs (last 24 hours): Temp Pulse Resp BP Pulse Ox 100.2 F H 103 H 20 153/71 H 94 L 09/01/18 08:15 09/01/18 09:36 09/01/18 08:15 09/01/18 09:36 09/01/18 08:15 Intake and Output: 09/01/18 09/01/18 06:59 18:59 Intake Total 4957 Output Total 420 Balance 4537 - Medications Medications: Current Medications Acetaminophen (Tylenol 650 Mg Supp) 650 mg MA ONCE PRN PRN Reason: Fever >100.4 F Last Admin: 08/30/18 23:28 Dose: 650 mg Acetaminophen (Tylenol 650 Mg Supp) 650 mg MA Q6 PRN PRN Reason: Fever >100.4 F Last Admin: 09/01/18 01:44 Dose: 650 mg Dextrose (Dextrose 50% Inj) 0 ml IV STAT PRN; Protocol PRN Reason: Hypoglycemia Protocol Dextrose (Glutose 15) 0 gm PO ONCE PRN; Protocol PRN Reason: Hypoglycemia Protocol Enoxaparin Sodium (Lovenox) 40 mg SC DAILY [facility]; Protocol Last Admin: 09/01/18 10:25 Dose: 40 mg Glucagon (Glucagen Diagnostic Kit) 0 mg IM STAT PRN; Protocol PRN Reason: Hypoglycemia Protocol Hydromorphone HCl (Dilaudid) 1 mg IVP Q4 PRN PRN Reason: Pain, severe (8-10) Last Admin: 09/01/18 09:26 Dose: 1 mg Lactated Ringer's (Lactated Ringer's) 1,000 mls @ 125 mls/hr IV .Q8H [facility] Last Admin: 09/01/18 06:34 Dose: 125 mls/hr Ciprofloxacin (Cipro 400mg/200ml Dsw) 400 mg in 200 mls @ 200 mls/hr IVPB Q12 [facility]; Protocol Last Admin: 09/01/18 09:34 Dose: 200 mls/hr Metronidazole (Flagyl 500mg/100ml Ns) 100 mls @ 100 mls/hr IVPB Q8 [facility]; Protocol Last Admin: 09/01/18 09:31 Dose: 100 mls/hr Potassium Chloride/Dextrose/Sod Cl (Potassium Chl 20 Meq In D5-1/2ns) 1,000 mls @ 100 mls/hr IV .Q10H [facility] Stop: 09/02/18 15:14 Insulin Human Regular (Humulin R) 0 units SC ACCU-CHECK [facility]; Protocol Last Admin: 09/01/18 06:34 Dose: Not Given Losartan Potassium (Cozaar) 100 mg PO DAILY [facility] Last Admin: 09/01/18 09:36 Dose: 100 mg Metoprolol Tartrate (Lopressor) 25 mg PO Q12 [facility] Last Admin: 09/01/18 09:35 Dose: 25 mg Morphine Sulfate (Morphine) 1 mg IVP Q6 PRN PRN Reason: Pain, Mild (1-3) Morphine Sulfate (Morphine) 2 mg IVP Q6 PRN PRN Reason: Pain, moderate (4-7) Last Admin: 09/01/18 04:26 Dose: 2 mg Ondansetron HCl (Zofran Inj) 4 mg IVP Q4 PRN PRN Reason: Nausea/Vomiting Last Admin: 09/01/18 10:24 Dose: 4 mg Oxycodone/Acetaminophen (Percocet 5/325 Mg Tab) 1 tab PO Q4 PRN PRN Reason: Pain, moderate (4-7) Stop: 09/04/18 06:01 Oxycodone/Acetaminophen (Percocet 5/325 Mg Tab) 2 tab PO Q4 PRN PRN Reason: Pain, severe (8-10) Stop: 09/04/18 06:01 Sertraline HCl (Zoloft) 100 mg PO DAILY [facility] Last Admin: 09/01/18 09:36 Dose: 100 mg - Labs Labs: 09/01/18 05:30 09/01/18 05:30 PT 16.6 Seconds (9.8-13.1) H 09/01/18 05:30 INR 1.5 09/01/18 05:30 APTT 33.5 Seconds (25.6-37.1) 09/01/18 05:30 Assessment and Plan - Assessment and Plan (Free Text) Plan: addenum no overnight events. Pt reports nausea and vomiting. Pt was tolerating liquid but developed nausea vomiting with regular diet reports increase suprapubic distention, difficulty urinating awake, alert, abd distended, tenderness fullness to lower quadrants a/p s/p lap lizeth -prn pain control -IV abx -trend WBC -guzmán catheter - urinary retention ~500ml on bladder scan
[2018-09-01 07:45] LABS: INR 1.5; PROTHROMBIN TIME 16.6 Seconds (9.8-13.1)
[2018-09-01 07:46] LABS: HEMOGLOBIN 13.4 g/dL (12.0-18.0); MEAN CELL VOLUME 88.2 fl (80.0-94.0); MEAN CORPUSCULAR HEMOGLOBIN 29.4 pg (27.0-31.0); MEAN CORPUSCULAR HGB CONC 33.4 g/dL (33.0-37.0); RBC 4.57 Mil/uL (4.40-5.90); WHITE BLOOD COUNT 17.1 K/uL (4.8-10.8)
[2018-09-01 07:47] LABS: PARTIAL THROMBOPLASTIN TIME 33.5 Seconds (25.6-37.1)
[2018-09-01 08:25] LABS: BLOOD UREA NITROGEN 14 mg/dl (9-20); CALCIUM 7.7 mg/dL (8.4-10.2); GFR NON-AFRICAN AMERICAN > 60
[2018-09-01] MEDS: Ciprofloxacin 400mg/200ml D5W 400 MG/200 ML BAG IVPB SCH ×2 (09:34→21:40)
[2018-09-01] MEDS: Enoxaparin 40 mg Syringe SC SCH (10:25)
--- NOTE | 2018-09-01 10:32 | CP.PCM.PN ---
Subjective - Date & Time of Evaluation Date of Evaluation: 09/01/18 Time of Evaluation: 09:15 - Subjective Subjective: Seen at bedside today. Patient is in good spirits but c/o abd pain and nausea/belching. Had some urinary retention overnight and was straightcath, 315 ml of urine on bladder scan. Patient has been able to urinate small amount 3 times this am. Tried breakfast but unable to eat much due to nausea. Abd pain is generalized. Nurse at bedside, dilaudid administered. Objective - Vital Signs/Intake and Output Vital Signs (last 24 hours): Temp Pulse Resp BP Pulse Ox 100.2 F H 103 H 20 153/71 H 94 L 09/01/18 08:15 09/01/18 09:36 09/01/18 08:15 09/01/18 09:36 09/01/18 08:15 Intake and Output: 09/01/18 09/01/18 06:59 18:59 Intake Total 4957 Output Total 420 Balance 4537 - Medications Medications: Current Medications Acetaminophen (Tylenol 650 Mg Supp) 650 mg FL ONCE PRN PRN Reason: Fever >100.4 F Last Admin: 08/30/18 23:28 Dose: 650 mg Acetaminophen (Tylenol 650 Mg Supp) 650 mg FL Q6 PRN PRN Reason: Fever >100.4 F Last Admin: 09/01/18 01:44 Dose: 650 mg Dextrose (Dextrose 50% Inj) 0 ml IV STAT PRN; Protocol PRN Reason: Hypoglycemia Protocol Dextrose (Glutose 15) 0 gm PO ONCE PRN; Protocol PRN Reason: Hypoglycemia Protocol Enoxaparin Sodium (Lovenox) 40 mg SC DAILY [facility]; Protocol Last Admin: 09/01/18 10:25 Dose: 40 mg Glucagon (Glucagen Diagnostic Kit) 0 mg IM STAT PRN; Protocol PRN Reason: Hypoglycemia Protocol Hydromorphone HCl (Dilaudid) 1 mg IVP Q4 PRN PRN Reason: Pain, severe (8-10) Last Admin: 09/01/18 09:26 Dose: 1 mg Lactated Ringer's (Lactated Ringer's) 1,000 mls @ 125 mls/hr IV .Q8H [facility] Last Admin: 09/01/18 06:34 Dose: 125 mls/hr Ciprofloxacin (Cipro 400mg/200ml Dsw) 400 mg in 200 mls @ 200 mls/hr IVPB Q12 [facility]; Protocol Last Admin: 09/01/18 09:34 Dose: 200 mls/hr Metronidazole (Flagyl 500mg/100ml Ns) 100 mls @ 100 mls/hr IVPB Q8 [facility]; Protocol Last Admin: 09/01/18 09:31 Dose: 100 mls/hr Insulin Human Regular (Humulin R) 0 units SC ACCU-CHECK [facility]; Protocol Last Admin: 09/01/18 06:34 Dose: Not Given Losartan Potassium (Cozaar) 100 mg PO DAILY [facility] Last Admin: 09/01/18 09:36 Dose: 100 mg Metoprolol Tartrate (Lopressor) 25 mg PO Q12 [facility] Last Admin: 09/01/18 09:35 Dose: 25 mg Morphine Sulfate (Morphine) 1 mg IVP Q6 PRN PRN Reason: Pain, Mild (1-3) Morphine Sulfate (Morphine) 2 mg IVP Q6 PRN PRN Reason: Pain, moderate (4-7) Last Admin: 09/01/18 04:26 Dose: 2 mg Ondansetron HCl (Zofran Inj) 4 mg IVP Q4 PRN PRN Reason: Nausea/Vomiting Last Admin: 09/01/18 10:24 Dose: 4 mg Oxycodone/Acetaminophen (Percocet 5/325 Mg Tab) 1 tab PO Q4 PRN PRN Reason: Pain, moderate (4-7) Stop: 09/04/18 06:01 Oxycodone/Acetaminophen (Percocet 5/325 Mg Tab) 2 tab PO Q4 PRN PRN Reason: Pain, severe (8-10) Stop: 09/04/18 06:01 Sertraline HCl (Zoloft) 100 mg PO DAILY [facility] Last Admin: 09/01/18 09:36 Dose: 100 mg - Labs Labs: 09/01/18 05:30 09/01/18 05:30 PT 16.6 Seconds (9.8-13.1) H 09/01/18 05:30 INR 1.5 09/01/18 05:30 APTT 33.5 Seconds (25.6-37.1) 09/01/18 05:30 - Constitutional Appears: Non-toxic, In Acute Distress (Pain) - Eye Exam Eye Exam: EOMI, PERRL - ENT Exam ENT Exam: Mucous Membranes Moist - Respiratory Exam Respiratory Exam: Clear to Ausculation Bilateral, NORMAL BREATHING PATTERN - Cardiovascular Exam Cardiovascular Exam: REGULAR RHYTHM, +S1, +S2. absent: Gallop - GI/Abdominal Exam GI & Abdominal Exam: Distended, Guarding, Tenderness, Hypoactive Bowel Sounds - Extremities Exam Extremities Exam: Normal Capillary Refill. absent: Calf Tenderness, Joint Swelling - Neurological Exam Neurological Exam: Alert, Awake, Oriented x3 - Psychiatric Exam Psychiatric exam: Normal Affect, Normal Mood - Skin Skin Exam: Normal Color, Warm Assessment and Plan - Assessment and Plan (Free Text) Assessment: 72 y/o M with a PMHx of HTN, HLD, DM2, MDD, PE and on Warfarin is admitted for evaluation and management of acute appendicitis. Acute appenditics. S/P LAP appendectomy Yesterday Diet advanced. Patient still with loss of appetite and nauseated this AM General Surgery consult, Dr Rodriguez. C/w IV Ciprofloxacin and Metronidazole Zofran PRN for nausea/vomiting. Pain control Warfarin on hold S/p IV Vitamin K 10mg, and 2 FFP during surgery. Incentive spirometry Encourage OOB Essential Hypertension Stable Home meds resumed Monitor DM 2 Controlled, last HbA1c 6.1 on 02/16/18 Insulin Sliding scale. Hypoglycemia protocol Keep Metformin and Gabapentin on hold Hyperlipidemia Controlled. Unremarkable lipid panel on 02/16/18 Keep Atorvastatin on hold Hx of Pulmonary Embolism (2012) Warfarin on hold for now INR 1.4 now DVT prophylaxis SCD's INR 1.4 today Start Lovenox 40mg daily
[2018-09-01] MEDS ORDERED: Simethicone 80 mg Chewtab PO PRN (19:30)
[2018-09-01] MEDS ORDERED: Simethicone 80 mg Chewtab PO STA (19:31)
[2018-09-01] MEDS: Potassium Ch 20mEq in D5-1/2NS 1,000 ML IV SCH (21:01)
[2018-09-01] MEDS: Simethicone 80 mg Chewtab PO SCH (21:44)
[2018-09-02] MEDS: metroNIDAZOLE 500mg/100ml NS 100 ML IVPB SCH ×3 (00:05→16:16)
[2018-09-02] MEDS: Simethicone 80 mg Chewtab PO SCH ×4 (01:15→16:13)
[2018-09-02] MEDS: Potassium Ch 20mEq in D5-1/2NS 1,000 ML IV SCH ×2 (01:37→12:26)
[2018-09-02 06:10] LABS: HEMOGLOBIN 13.9 g/dL (12.0-18.0); MEAN CELL VOLUME 87.4 fl (80.0-94.0); MEAN CORPUSCULAR HGB CONC 33.1 g/dL (33.0-37.0); RBC 4.79 Mil/uL (4.40-5.90); RED CELL DISTRIBUTION WIDTH 13.9 % (11.5-14.5); WHITE BLOOD COUNT 21.4 K/uL (4.8-10.8)
[2018-09-02] MEDS: Insulin Regular 100 units/ml SC SCH ×4 (06:23→23:00)
[2018-09-02 06:45] LABS: BLOOD UREA NITROGEN 17 mg/dl (9-20); CALCIUM 7.9 mg/dL (8.4-10.2); GFR NON-AFRICAN AMERICAN > 60
--- NOTE | 2018-09-02 07:46 | CP.PCM.PN ---
<Pj Ochoa - Last Filed: 09/02/18 07:42> Subjective - Date & Time of Evaluation Date of Evaluation: 09/02/18 Time of Evaluation: 07:42 - Subjective Subjective: General Surgery Progress Note for Dr. Glez 72M seen and evaluated at bedside this morning. Patient continues to have fevers overnight. He has not been able to tolerate PO diet. Patient has not passed flatus or had a BM. He has guzmán in place that is beginning to drain spontaneously without need for flushing since 1am. Denies SOB, CP, headaches, or dizziness. Objective - Vital Signs/Intake and Output Vital Signs (last 24 hours): Temp Pulse Resp BP Pulse Ox 98.9 F 102 H 20 165/82 H 95 09/02/18 01:00 09/02/18 00:09 09/02/18 00:09 09/02/18 00:09 09/02/18 00:09 Intake and Output: 09/02/18 09/02/18 06:59 18:59 Intake Total 1900 Output Total 1800 Balance 100 - Medications Medications: Current Medications Acetaminophen (Tylenol 650 Mg Supp) 650 mg MS ONCE PRN PRN Reason: Fever >100.4 F Last Admin: 08/30/18 23:28 Dose: 650 mg Acetaminophen (Tylenol 650 Mg Supp) 650 mg MS Q6 PRN PRN Reason: Fever >100.4 F Last Admin: 09/01/18 23:26 Dose: 650 mg Dextrose (Dextrose 50% Inj) 0 ml IV STAT PRN; Protocol PRN Reason: Hypoglycemia Protocol Dextrose (Glutose 15) 0 gm PO ONCE PRN; Protocol PRN Reason: Hypoglycemia Protocol Enoxaparin Sodium (Lovenox) 40 mg SC DAILY [facility]; Protocol Last Admin: 09/01/18 10:25 Dose: 40 mg Glucagon (Glucagen Diagnostic Kit) 0 mg IM STAT PRN; Protocol PRN Reason: Hypoglycemia Protocol Hydromorphone HCl (Dilaudid) 1 mg IVP Q4 PRN PRN Reason: Pain, severe (8-10) Last Admin: 09/01/18 09:26 Dose: 1 mg Lactated Ringer's (Lactated Ringer's) 1,000 mls @ 125 mls/hr IV .Q8H [facility] Last Admin: 09/01/18 21:42 Dose: Not Given Ciprofloxacin (Cipro 400mg/200ml Dsw) 400 mg in 200 mls @ 200 mls/hr IVPB Q12 [facility]; Protocol Last Admin: 09/01/18 21:40 Dose: 200 mls/hr Metronidazole (Flagyl 500mg/100ml Ns) 100 mls @ 100 mls/hr IVPB Q8 [facility]; P rotocol Last Admin: 09/02/18 00:05 Dose: 100 mls/hr Potassium Chloride/Dextrose/Sod Cl (Potassium Chl 20 Meq In D5-1/2ns) 1,000 mls @ 100 mls/hr IV .Q10H [facility] Stop: 09/02/18 15:14 Last Admin: 09/02/18 01:37 Dose: Not Given Insulin Human Regular (Humulin R) 0 units SC ACCU-CHECK [facility]; Protocol Last Admin: 09/02/18 06:23 Dose: 2 unit Losartan Potassium (Cozaar) 100 mg PO DAILY [facility] Last Admin: 09/01/18 09:36 Dose: 100 mg Metoclopramide HCl (Reglan) 10 mg IVP Q6 PRN PRN Reason: Nausea/Vomiting Metoprolol Tartrate (Lopressor) 25 mg PO Q12 [facility] Last Admin: 09/01/18 21:38 Dose: 25 mg Morphine Sulfate (Morphine) 1 mg IVP Q6 PRN PRN Reason: Pain, Mild (1-3) Morphine Sulfate (Morphine) 2 mg IVP Q6 PRN PRN Reason: Pain, moderate (4-7) Last Admin: 09/01/18 21:28 Dose: 2 mg Ondansetron HCl (Zofran Inj) 2 mg IVP Q4 [facility] Last Admin: 09/02/18 05:16 Dose: 2 mg Oxycodone/Acetaminophen (Percocet 5/325 Mg Tab) 1 tab PO Q4 PRN PRN Reason: Pain, moderate (4-7) Stop: 09/04/18 06:01 Oxycodone/Acetaminophen (Percocet 5/325 Mg Tab) 2 tab PO Q4 PRN PRN Reason: Pain, severe (8-10) Stop: 09/04/18 06:01 Pantoprazole Sodium (Protonix Inj) 40 mg IVP DAILY [facility] Sertraline HCl (Zoloft) 100 mg PO DAILY [facility] Last Admin: 12/23/18 09:36 Dose: 100 mg Simethicone (Mylicon Chew Tab) 80 mg PO Q8 [facility] Last Admin: 09/02/18 01:34 Dose: 80 mg - Labs Labs: 09/02/18 05:50 09/02/18 05:50 PT 16.6 Seconds (9.8-13.1) H 09/01/18 05:30 INR 1.5 09/01/18 05:30 APTT 33.5 Seconds (25.6-37.1) 09/01/18 05:30 - Constitutional Appears: Well, No Acute Distress - Head Exam Head Exam: ATRAUMATIC, NORMAL INSPECTION, NORMOCEPHALIC - Eye Exam Eye Exam: EOMI - ENT Exam ENT Exam: Mucous Membranes Dry - Respiratory Exam Respiratory Exam: NORMAL BREATHING PATTERN. absent: Respiratory Distress - Cardiovascular Exam Cardiovascular Exam: Tachycardia, REGULAR RHYTHM - GI/Abdominal Exam GI & Abdominal Exam: Distended, Tenderness, Normal Bowel Sounds. absent: Guarding, Soft, Rebound - Neurological Exam Neurological Exam: Alert, Awake - Psychiatric Exam Psychiatric exam: Normal Affect, Normal Mood - Skin Skin Exam: Dry, Intact, Normal Color, Warm Assessment and Plan - Assessment and Plan (Free Text) Assessment: 72M s/p laparoscopic appendectomy POD2 Plan: D/c guzmán Continue IVF Clear liquids as tolerated Antiemetics and analgesics PRN Tylenol PRN Monitor bowel function and diet tolerance Encourage ambulation and IS use Further recommendations per Dr. Newton Ochoa PGY1 <Dayron Rodriguez - Last Filed: 09/02/18 11:31> Subjective - Date & Time of Evaluation Time of Evaluation: 10:35 - Subjective Subjective: Patient was seen and examined at the bedside. Agree with resident's note above. Had few episodes of vomiting. KUB results from this morning noted. Objective - Vital Signs/Intake and Output Vital Signs (last 24 hours): Temp Pulse Resp BP Pulse Ox 98.1 F 83 20 162/89 H 93 L 09/02/18 08:26 09/02/18 08:26 09/02/18 08:26 09/02/18 08:26 09/02/18 08:26 Intake and Output: 09/02/18 09/02/18 06:59 18:59 Intake Total 1900 Output Total 1800 Balance 100 - Medications Medications: Current Medications Acetaminophen (Tylenol 650 Mg Supp) 650 mg MS ONCE PRN PRN Reason: Fever >100.4 F Last Admin: 08/30/18 23:28 Dose: 650 mg Acetaminophen (Tylenol 650 Mg Supp) 650 mg MS Q6 PRN PRN Reason: Fever >100.4 F Last Admin: 09/01/18 23:26 Dose: 650 mg Dextrose (Dextrose 50% Inj) 0 ml IV STAT PRN; Protocol PRN Reason: Hypoglycemia Protocol Dextrose (Glutose 15) 0 gm PO ONCE PRN; Protocol PRN Reason: Hypoglycemia Protocol Enoxaparin Sodium (Lovenox) 40 mg SC DAILY [facility]; Protocol Last Admin: 09/02/18 08:06 Dose: 40 mg Glucagon (Glucagen Diagnostic Kit) 0 mg IM STAT PRN; Protocol PRN Reason: Hypoglycemia Protocol Hydromorphone HCl (Dilaudid) 1 mg IVP Q4 PRN PRN Reason: Pain, severe (8-10) Last Admin: 09/01/18 09:26 Dose: 1 mg Ciprofloxacin (Cipro 400mg/200ml Dsw) 400 mg in 200 mls @ 200 mls/hr IVPB Q12 [facility]; Protocol Last Admin: 09/02/18 08:00 Dose: 200 mls/hr Metronidazole (Flagyl 500mg/100ml Ns) 100 mls @ 100 mls/hr IVPB Q8 [facility]; Protocol Last Admin: 09/02/18 08:03 Dose: 100 mls/hr Potassium Chloride/Dextrose/Sod Cl (Potassium Chl 20 Meq In D5-1/2ns) 1,000 mls @ 100 mls/hr IV .Q10H [facility] Stop: 09/02/18 15:14 Last Admin: 09/02/18 01:37 Dose: Not Given Insulin Human Regular (Humulin R) 0 units SC ACCU-CHECK [facility]; Protocol Last Admin: 09/02/18 06:23 Dose: 2 unit Losartan Potassium (Cozaar) 100 mg PO DAILY [facility] Last Admin: 09/02/18 08:04 Dose: 100 mg Metoclopramide HCl (Reglan) 10 mg IVP Q6 PRN PRN Reason: Nausea/Vomiting Last Admin: 09/02/18 07:59 Dose: 10 mg Metoprolol Tartrate (Lopressor) 25 mg PO Q12 [facility] Last Admin: 09/02/18 08:05 Dose: 25 mg Morphine Sulfate (Morphine) 1 mg IVP Q6 PRN PRN Reason: Pain, Mild (1-3) Morphine Sulfate (Morphine) 2 mg IVP Q6 PRN PRN Reason: Pain, moderate (4-7) Last Admin: 09/01/18 21:28 Dose: 2 mg Ondansetron HCl (Zofran Inj) 2 mg IVP Q4 [facility] Last Admin: 09/02/18 08:48 Dose: 2 mg Oxycodone/Acetaminophen (Percocet 5/325 Mg Tab) 1 tab PO Q4 PRN PRN Reason: Pain, moderate (4-7) Stop: 09/04/18 06:01 Oxycodone/Acetaminophen (Percocet 5/325 Mg Tab) 2 tab PO Q4 PRN PRN Reason: Pain, severe (8-10) Stop: 09/04/18 06:01 Pantoprazole Sodium (Protonix Inj) 40 mg IVP DAILY [facility] Last Admin: 09/02/18 08:05 Dose: 40 mg Sertraline HCl (Zoloft) 100 mg PO DAILY [facility] Last Admin: 09/02/18 08:07 Dose: 100 mg Simethicone (Mylicon Chew Tab) 80 mg PO Q8 [facility] Last Admin: 09/02/18 08:13 Dose: 80 mg - Labs Labs: 09/02/18 05:50 09/02/18 05:50 PT 16.6 Seconds (9.8-13.1) H 09/01/18 05:30 INR 1.5 09/01/18 05:30 APTT 33.5 Seconds (25.6-37.1) 09/01/18 05:30 - GI/Abdominal Exam Additional comments: soft, mild sathya-incisional tenderness, distended, hypoactive bowel sounds, no r ebound, no guarding, incisions clean, no erythema, no drainage dermobond in place Assessment and Plan - Assessment and Plan (Free Text) Plan: - NPO - NG tube insertion and to wall suction - pain control - IV fluids - electrolyte replacement - Repeat labs in am - Continue antibiotics - DVT ppx - Insentive spirometry - Out of bed to chair - Will follow
[2018-09-02] MEDS: Ciprofloxacin 400mg/200ml D5W 400 MG/200 ML BAG IVPB SCH ×2 (08:00→21:17)
[2018-09-02] MEDS: Lactated Ringer's 1,000 ML IV SCH (08:05)
[2018-09-02] MEDS: Enoxaparin 40 mg Syringe SC SCH (08:06)
--- NOTE | 2018-09-02 09:17 | CP.PCM.PN ---
Subjective - Date & Time of Evaluation Date of Evaluation: 09/02/18 Time of Evaluation: 08:40 - Subjective Subjective: 72 y/o F was evaluated and examined by bedside. Pt reports not feeling well, complains of nausea, has vomited dark brown liquid several times overnight Pt reports abdominal pain is mild and not bothersome. Pt has a single episode of fever of 101 F overnight. Objective - Vital Signs/Intake and Output Vital Signs (last 24 hours): Temp Pulse Resp BP Pulse Ox 98.1 F 83 20 162/89 H 93 L 09/02/18 08:26 09/02/18 08:26 09/02/18 08:26 09/02/18 08:26 09/02/18 08:26 Intake and Output: 09/02/18 09/02/18 06:59 18:59 Intake Total 1900 Output Total 1800 Balance 100 - Medications Medications: Current Medications Acetaminophen (Tylenol 650 Mg Supp) 650 mg [place] ONCE PRN PRN Reason: Fever >100.4 F Last Admin: 08/30/18 23:28 Dose: 650 mg Acetaminophen (Tylenol 650 Mg Supp) 650 mg TN Q6 PRN PRN Reason: Fever >100.4 F Last Admin: 09/01/18 23:26 Dose: 650 mg Dextrose (Dextrose 50% Inj) 0 ml IV STAT PRN; Protocol PRN Reason: Hypoglycemia Protocol Dextrose (Glutose 15) 0 gm PO ONCE PRN; Protocol PRN Reason: Hypoglycemia Protocol Enoxaparin Sodium (Lovenox) 40 mg SC DAILY [facility]; Protocol Last Admin: 09/02/18 08:06 Dose: 40 mg Glucagon (Glucagen Diagnostic Kit) 0 mg IM STAT PRN; Protocol PRN Reason: Hypoglycemia Protocol Hydromorphone HCl (Dilaudid) 1 mg IVP Q4 PRN PRN Reason: Pain, severe (8-10) Last Admin: 09/01/18 09:26 Dose: 1 mg Lactated Ringer's (Lactated Ringer's) 1,000 mls @ 125 mls/hr IV .Q8H [facility] Last Admin: 09/02/18 08:05 Dose: Not Given Ciprofloxacin (Cipro 400mg/200ml Dsw) 400 mg in 200 mls @ 200 mls/hr IVPB Q12 [facility]; Protocol Last Admin: 09/02/18 08:00 Dose: 200 mls/hr Metronidazole (Flagyl 500mg/100ml Ns) 100 mls @ 100 mls/hr IVPB Q8 [facility]; Protocol Last Admin: 09/02/18 08:03 Dose: 100 mls/hr Potassium Chloride/Dextrose/Sod Cl (Potassium Chl 20 Meq In D5-1/2ns) 1,000 mls @ 100 mls/hr IV .Q10H [facility] Stop: 09/02/18 15:14 Last Admin: 09/02/18 01:37 Dose: Not Given Insulin Human Regular (Humulin R) 0 units SC ACCU-CHECK [facility]; Protocol Last Admin: 09/02/18 06:23 Dose: 2 unit Losartan Potassium (Cozaar) 100 mg PO DAILY [facility] Last Admin: 09/02/18 08:04 Dose: 100 mg Metoclopramide HCl (Reglan) 10 mg IVP Q6 PRN PRN Reason: Nausea/Vomiting Last Admin: 09/02/18 07:59 Dose: 10 mg Metoprolol Tartrate (Lopressor) 25 mg PO Q12 [facility] Last Admin: 09/02/18 08:05 Dose: 25 mg Morphine Sulfate (Morphine) 1 mg IVP Q6 PRN PRN Reason: Pain, Mild (1-3) Morphine Sulfate (Morphine) 2 mg IVP Q6 PRN PRN Reason: Pain, moderate (4-7) Last Admin: 09/01/18 21:28 Dose: 2 mg Ondansetron HCl (Zofran Inj) 2 mg IVP Q4 [facility] Last Admin: 09/02/18 08:48 Dose: 2 mg Oxycodone/Acetaminophen (Percocet 5/325 Mg Tab) 1 tab PO Q4 PRN PRN Reason: Pain, moderate (4-7) Stop: 09/04/18 06:01 Oxycodone/Acetaminophen (Percocet 5/325 Mg Tab) 2 tab PO Q4 PRN PRN Reason: Pain, severe (8-10) Stop: 09/04/18 06:01 Pantoprazole Sodium (Protonix Inj) 40 mg IVP DAILY [facility] Last Admin: 09/02/18 08:05 Dose: 40 mg Sertraline HCl (Zoloft) 100 mg PO DAILY [facility] Last Admin: 09/02/18 08:07 Dose: 100 mg Simethicone (Mylicon Chew Tab) 80 mg PO Q8 [facility] Last Admin: 09/02/18 08:13 Dose: 80 mg - Labs Labs: 09/02/18 05:50 09/02/18 05:50 PT 16.6 Seconds (9.8-13.1) H 09/01/18 05:30 INR 1.5 09/01/18 05:30 APTT 33.5 Seconds (25.6-37.1) 09/01/18 05:30 - Constitutional Appears: Toxic - Head Exam Head Exam: ATRAUMATIC, NORMAL INSPECTION - Eye Exam Eye Exam: EOMI - ENT Exam ENT Exam: Mucous Membranes Moist - Neck Exam Neck Exam: Full ROM - Respiratory Exam Respiratory Exam: NORMAL BREATHING PATTERN. absent: Rales, Rhonchi, Wheezes - Cardiovascular Exam Cardiovascular Exam: +S1, +S2 - GI/Abdominal Exam GI & Abdominal Exam: Distended, Soft. absent: Guarding, Rigid, Tenderness, Nor mal Bowel Sounds Additional comments: tympanic on percussion, diffusely on abdomen. - Extremities Exam Extremities Exam: Full ROM. absent: Calf Tenderness, Pedal Edema - Back Exam Back Exam: absent: CVA tenderness (L), CVA tenderness (R) - Neurological Exam Neurological Exam: Alert, Awake, Oriented x3 Assessment and Plan - Assessment and Plan (Free Text) Assessment: 72 y/o M with a PMHx of HTN, HLD, DM2, MDD, PE and on Warfarin is admitted for evaluation and management of acute appendicitis. PLAN: >Acute appenditics. --S/P LAP appendectomy, POD 2. --Liquid diet --General Surgery on board, Dr Rodriguez. --C/w IV Ciprofloxacin and IV Metronidazole >Post-operative Ileus --Abdominal X-Ray ordered today and showed post-operative ileus --NG Tube for decompression. --Zofran PRN for nausea/vomiting --Monitor symptoms. --Considering changing his pain medications and avoid opioids. >Essential Hypertension --Elevated, likely due to pain and recurrent nausea. --Home meds resumed --Monitor BP >DM 2 --Controlled, last HbA1c 6.1 on 02/16/18 --Insulin Sliding scale. --Hypoglycemia protocol --Keep Metformin and Gabapentin on hold >Hyperlipidemia --Controlled. Unremarkable lipid panel on 02/16/18 --Keep Atorvastatin on hold >Hx of Pulmonary Embolism (2012) --Warfarin on hold for now --INR 1.4 --DVT/PE prophylaxis >DVT prophylaxis --SCD's --INR 1.4 today --C/w Lovenox 40mg daily
--- NOTE | 2018-09-02 10:04 | RAD ---
Date of service: 09/02/2018 HISTORY: Abdominal distension COMPARISON: CT abdomen and pelvis from 08/30/2018. FINDINGS: BOWEL: There is gaseous distension of the stomach. There is moderate diffuse dilatation of gas-filled small bowel loops. BONES: Within normal limits for the patient's age. Status post left hip arthroplasty. OTHER FINDINGS: Multiple phleboliths in the pelvis. An IVC filter remains in place. IMPRESSION: Findings are most compatible with postoperative ileus.
[2018-09-02] MEDS ORDERED: Chlorhexidine Gluconate 1 APPL/PKT TP ONE (10:28)
--- NOTE | 2018-09-02 11:36 | RAD ---
Date of service: 09/02/2018 HISTORY: NG tube placement COMPARISON: Abdomen radiographs 09/02/2018 8:21 a.m.. FINDINGS: BOWEL: Nasogastric tube is been deployed with the tip terminating at the gastric fundus. High-grade distal small-bowel obstruction reiterated. There is a [id number] decrease in extensive dilatation of small-bowel loops with more distal small bowel appearing less distended than previously shown. No large free intra peritoneal gas collection is identified however abdomen obstructive series is more sensitive. Inferior vena cava filter again identified in situ at the right parasagittal abdomen. Phlebolith like calcifications again seen in the inferior pelvic soft tissues bilaterally with left hip arthroplasty reiterated. BONES: No interval change. OTHER FINDINGS: None. IMPRESSION: Status post nasogastric tube deployment. Some decompression of numerous distended small bowel loops is appreciated, particularly the mid distal small-bowel loops. Overall pattern remains suggestive of a high-grade distal small-bowel obstruction.
[2018-09-02] MEDS ORDERED: Morphine 4 MG/ML VIAL IVP PRN ×2 (14:08)
[2018-09-02] MEDS: Sodium Chloride 0.9% 1,000 ML IV SCH (16:20)
[2018-09-03] MEDS: metroNIDAZOLE 500mg/100ml NS 100 ML IVPB SCH ×3 (01:12→16:05)
[2018-09-03] MEDS: Simethicone 80 mg Chewtab PO SCH ×3 (01:12→16:12)
[2018-09-03] MEDS: Sodium Chloride 0.9% 1,000 ML IV SCH ×4 (01:30→23:00)
[2018-09-03 05:57] LABS: HEMOGLOBIN 13.8 g/dL (12.0-18.0); MEAN CORPUSCULAR HEMOGLOBIN 29.2 pg (27.0-31.0); MEAN CORPUSCULAR HGB CONC 33.1 g/dL (33.0-37.0); RBC 4.75 Mil/uL (4.40-5.90); WHITE BLOOD COUNT 19.1 K/uL (4.8-10.8)
--- NOTE | 2018-09-03 06:06 | CP.PCM.PN ---
Subjective - Date & Time of Evaluation Date of Evaluation: 09/03/18 Time of Evaluation: 06:04 - Subjective Subjective: SURGERY NOTE FOR DR. MUNOZ 72M seen and examined at bedside. Overnight continue to have spit up but no vomiting. States pain is improved, and distention mildly improved. Denies fevers or chills. He has been passing flatus regularly but no bowel movement yet. Currently out of bed to chair. Objective - Vital Signs/Intake and Output Vital Signs (last 24 hours): Temp Pulse Resp BP Pulse Ox 98.9 F 74 20 150/74 92 L 09/02/18 23:27 09/02/18 23:27 09/02/18 23:27 09/02/18 23:27 09/02/18 23:27 Intake and Output: 09/02/18 09/03/18 18:59 06:59 Output Total 375 Balance -375 - Medications Medications: Current Medications Acetaminophen (Tylenol 650 Mg Supp) 650 mg [place] ONCE PRN PRN Reason: Fever >100.4 F Last Admin: 08/30/18 23:28 Dose: 650 mg Acetaminophen (Tylenol 650 Mg Supp) 650 mg [place] Q6 PRN PRN Reason: Fever >100.4 F Last Admin: 09/01/18 23:26 Dose: 650 mg Dextrose (Dextrose 50% Inj) 0 ml IV STAT PRN; Protocol PRN Reason: Hypoglycemia Protocol Dextrose (Glutose 15) 0 gm PO ONCE PRN; Protocol PRN Reason: Hypoglycemia Protocol Enoxaparin Sodium (Lovenox) 40 mg SC DAILY [facility]; Protocol Last Admin: 09/02/18 08:06 Dose: 40 mg Glucagon (Glucagen Diagnostic Kit) 0 mg IM STAT PRN; Protocol PRN Reason: Hypoglycemia Protocol Ciprofloxacin (Cipro 400mg/200ml Dsw) 400 mg in 200 mls @ 200 mls/hr IVPB Q12 [facility]; Protocol Last Admin: 09/02/18 21:17 Dose: 200 mls/hr Metronidazole (Flagyl 500mg/100ml Ns) 100 mls @ 100 mls/hr IVPB Q8 [facility]; Protoco l Last Admin: 09/03/18 01:12 Dose: 100 mls/hr Sodium Chloride (Sodium Chloride 0.9%) 1,000 mls @ 100 mls/hr IV .Q10H [facility] Stop: 09/03/18 16:12 Last Admin: 12/25/18 05:52 Dose: 100 mls/hr Insulin Human Regular (Humulin R) 0 units SC ACCU-CHECK [facility]; Protocol Last Admin: 09/02/18 23:00 Dose: Not Given Ketorolac Tromethamine (Toradol) 15 mg IVP Q6 PRN PRN Reason: Pain, Mild (1-3) Last Admin: 09/03/18 05:52 Dose: 15 mg Losartan Potassium (Cozaar) 100 mg PO DAILY [facility] Last Admin: 09/02/18 08:04 Dose: 100 mg Metoclopramide HCl (Reglan) 10 mg IVP Q6 PRN PRN Reason: Nausea/Vomiting Last Admin: 09/02/18 07:59 Dose: 10 mg Metoprolol Tartrate (Lopressor) 25 mg PO Q12 [facility] Last Admin: 09/02/18 21:15 Dose: Not Given Morphine Sulfate (Morphine) 2 mg IVP Q6 PRN PRN Reason: Pain, severe (8-10) Morphine Sulfate (Morphine) 1 mg IVP Q6 PRN PRN Reason: Pain, moderate (4-7) Ondansetron HCl (Zofran Inj) 2 mg IVP Q4 [facility] Last Admin: 09/03/18 05:54 Dose: 2 mg Pantoprazole Sodium (Protonix Inj) 40 mg IVP DAILY [facility] Last Admin: 09/02/18 08:05 Dose: 40 mg Sertraline HCl (Zoloft) 100 mg PO DAILY [facility] Last Admin: 09/02/18 08:07 Dose: 100 mg Simethicone (Mylicon Chew Tab) 80 mg PO Q8 [facility] Last Admin: 09/02/18 16:13 Dose: Not Given - Labs Labs: 09/02/18 05:50 09/02/18 05:50 PT 16.6 Seconds (9.8-13.1) H 09/01/18 05:30 INR 1.5 09/01/18 05:30 APTT 33.5 Seconds (25.6-37.1) 09/01/18 05:30 - Constitutional Appears: Non-toxic, No Acute Distress - Respiratory Exam Respiratory Exam: Clear to Ausculation Bilateral, NORMAL BREATHING PATTERN - Cardiovascular Exam Cardiovascular Exam: REGULAR RHYTHM, +S1, +S2 - GI/Abdominal Exam GI & Abdominal Exam: Distended, Soft (full). absent: Firm, Guarding, Rigid, Rebound Additional comments: Incisions are CDI NGT output 500cc since insertion of bilious fluid - Extremities Exam Extremities Exam: absent: Pedal Edema, Tenderness - Neurological Exam Neurological Exam: Alert, Awake - Skin Skin Exam: Dry, Intact, Normal Color, Warm Assessment and Plan - Assessment and Plan (Free Text) Assessment: 72M s/p Laparoscopic Appendectomy POD#3, Ruptured appendix Plan: - NPO - IVF - Continue IV antibiotics - Pain control, Anti-emetics - NGT in place - on suction - Monitor for further bowel function - Serial abdominal exam Further recs discuss with Dr. Jennifer Granados, PGY3
[2018-09-03 06:22] LABS: BLOOD UREA NITROGEN 26 mg/dl (9-20); CALCIUM 8.2 mg/dL (8.4-10.2); GFR NON-AFRICAN AMERICAN > 60
[2018-09-03] MEDS: Ciprofloxacin 400mg/200ml D5W 400 MG/200 ML BAG IVPB SCH ×2 (09:57→20:32)
[2018-09-03] MEDS: Enoxaparin 40 mg Syringe SC SCH (10:04)
[2018-09-03] MEDS: Insulin Regular 100 units/ml SC SCH ×4 (10:07→23:30)
[2018-09-03] MEDS ORDERED: Sodium Chloride 0.9% 1,000 ML IV SCH (11:26)
--- NOTE | 2018-09-03 12:07 | CP.PCM.PN ---
Subjective - Date & Time of Evaluation Date of Evaluation: 09/03/18 Time of Evaluation: 09:50 - Subjective Subjective: 72 y/o F was evaluated and examined by bedside. Pt reports feeling a little better than yesterday. Nausea has decreased in frequency, but still present and worse every morning and associated with belching. NG tube in place, suction reci pient with 500mL of dark green thick drainage. Pt is passing gasses, is NPO, and has not been able to walk yet. -On labs: leukocytosis has improved to 19.1 but still elevated. -Pt able to urinate with NO difficulties. Objective - Vital Signs/Intake and Output Vital Signs (last 24 hours): Temp Pulse Resp BP Pulse Ox 98.5 F 82 18 135/68 96 09/03/18 08:21 09/03/18 10:05 09/03/18 08:21 09/03/18 10:05 09/03/18 08:21 Intake and Output: 09/03/18 09/03/18 06:59 18:59 Output Total 175 Balance -175 - Medications Medications: Current Medications Acetaminophen (Tylenol 650 Mg Supp) 650 mg IN ONCE PRN PRN Reason: Fever >100.4 F Last Admin: 08/30/18 23:28 Dose: 650 mg Acetaminophen (Tylenol 650 Mg Supp) 650 mg IN Q6 PRN PRN Reason: Fever >100.4 F Last Admin: 09/01/18 23:26 Dose: 650 mg Dextrose (Dextrose 50% Inj) 0 ml IV STAT PRN; Protocol PRN Reason: Hypoglycemia Protocol Dextrose (Glutose 15) 0 gm PO ONCE PRN; Protocol PRN Reason: Hypoglycemia Protocol Enoxaparin Sodium (Lovenox) 40 mg SC DAILY [facility]; Protocol Last Admin: 09/03/18 10:04 Dose: 40 mg Glucagon (Glucagen Diagnostic Kit) 0 mg IM STAT PRN; Protocol PRN Reason: Hypoglycemia Protocol Ciprofloxacin (Cipro 400mg/200ml Dsw) 400 mg in 200 mls @ 200 mls/hr IVPB Q12 [facility]; Protocol Last Admin: 09/03/18 09:57 Dose: 200 mls/hr Metronidazole (Flagyl 500mg/100ml Ns) 100 mls @ 100 mls/hr IVPB Q8 [facility]; Protocol Last Admin: 09/03/18 10:22 Dose: 100 mls/hr Sodium Chloride (Sodium Chloride 0.9%) 1,000 mls @ 150 mls/hr IV .Q6H40M [facility] Stop: 09/03/18 16:12 Insulin Human Regular (Humulin R) 0 units SC ACCU-CHECK [facility]; Protocol Last Admin: 09/03/18 11:55 Dose: 1 unit Ketorolac Tromethamine (Toradol) 15 mg IVP Q6 PRN PRN Reason: Pain, Mild (1-3) Last Admin: 09/03/18 05:52 Dose: 15 mg Losartan Potassium (Cozaar) 100 mg PO DAILY [facility] Last Admin: 09/03/18 10:04 Dose: 100 mg Metoclopramide HCl (Reglan) 10 mg IVP Q6 PRN PRN Reason: Nausea/Vomiting Last Admin: 09/02/18 07:59 Dose: 10 mg Metoprolol Tartrate (Lopressor) 25 mg PO Q12 [facility] Last Admin: 09/03/18 10:05 Dose: 25 mg Morphine Sulfate (Morphine) 2 mg IVP Q6 PRN PRN Reason: Pain, severe (8-10) Morphine Sulfate (Morphine) 1 mg IVP Q6 PRN PRN Reason: Pain, moderate (4-7) Ondansetron HCl (Zofran Inj) 2 mg IVP Q4 [facility] Last Admin: 09/03/18 12:01 Dose: 2 mg Pantoprazole Sodium (Protonix Inj) 40 mg IVP DAILY [facility] Last Admin: 09/03/18 10:06 Dose: 40 mg Sertraline HCl (Zoloft) 100 mg PO DAILY [facility] Last Admin: 09/03/18 10:05 Dose: 100 mg Simethicone (Mylicon Chew Tab) 80 mg PO Q8 [facility] Last Admin: 09/03/18 10:32 Dose: 80 mg - Labs Labs: 09/03/18 05:21 09/03/18 05:21 PT 16.6 Seconds (9.8-13.1) H 09/01/18 05:30 INR 1.5 09/01/18 05:30 APTT 33.5 Seconds (25.6-37.1) 09/01/18 05:30 - Constitutional Appears: No Acute Distress - Head Exam Head Exam: ATRAUMATIC, NORMAL INSPECTION - Eye Exam Eye Exam: EOMI, Normal appearance - ENT Exam ENT Exam: Mucous Membranes Dry - Neck Exam Neck Exam: Full ROM, Normal Inspection - Respiratory Exam Respiratory Exam: NORMAL BREATHING PATTERN. absent: Rales, Rhonchi, Wheezes - Cardiovascular Exam Cardiovascular Exam: +S1, +S2 - GI/Abdominal Exam GI & Abdominal Exam: Distended (mild improvement from yesterday.), Soft, Tenderness (mild on lower abdomen). absent: Firm, Guarding, Rigid - Extremities Exam Extremities Exam: Full ROM, Normal Inspection. absent: Calf Tenderness, Pedal Edema - Back Exam Back Exam: Full ROM. absent: CVA tenderness (L), CVA tenderness (R) - Neurological Exam Neurological Exam: Alert, Awake, Oriented x3 Assessment and Plan - Assessment and Plan (Free Text) Assessment: 72 y/o M with a PMHx of HTN, HLD, DM2, MDD, PE and on Warfarin is admitted for evaluation and management of acute appendicitis. PLAN: >Post-operative Ileus --Mild imprevement, still nauseous nad distended abdomen. --NPO, continue NG Tube, will d/c suction. --Zofran for nausea/vomiting --Ambulation encouraged. --Pain medication modified to: Tylenol 650 for mild, Toradol 15mg for moderate and Tylenol 30mg for severe. >Acute appenditics. --S/P LAP appendectomy, POD 2. --NPO, NG Tube in place, will d/c suction. --General Surgery on board, Dr Rodriguez. --C/w IV Ciprofloxacin and IV Metronidazole --Zofran for nausea/vomiting --Ambulation encouraged. >Essential Hypertension --Elevated, likely due to pain and recurrent nausea. --Home meds resumed --Monitor BP >DM 2 --Keep Metformin and Gabapentin on hold >Hyperlipidemia --Keep Atorvastatin on hold >Hx of Pulmonary Embolism (2012) --Warfarin on hold for now >DVT prophylaxis --SCD's --INR 1.4 today --C/w Lovenox 40mg daily
--- NOTE | 2018-09-03 14:30 | CP.PCM.PN ---
Subjective - Date & Time of Evaluation Date of Evaluation: 09/03/18 Time of Evaluation: 14:27 - Subjective Subjective: General Surgery Pt seen and examined this afternoon. He reports feeling very thirsty and having some SOB while talking. He denies having chest pain. (+) belching. Pt reports having (+) flatus. (-) BM. NGT output in 24 hours was 550ml bilious. Currently NGT clamped as pt was ambulating. Denies N/V at this time. Hernandez removed yesterday, pt denies having any difficulty urinating, but notes his urine remains dark. He states this is his baseline urine color. Pt is currently NPO except icechips. Labs and vitals noted. WBC slightly improved to 19.4 from 21.4. Pt noted to have some episodes of hypoxemia 92-93% on RA on occasion. Afebrile last 24 hours. (-) tachycardia. PE Gen: Pt laying in bed in NAD. Speaking in full sentences. NGT clamped. Skin: warm and dry Cardio: s1s2 RRR Lungs: (+) decreased BS in right lower anterior lung field, otherwise (-) rales, (-) wheezing, (-) tachypnea. Abd: Soft, (+) distended, (+) tympanic, (-) tenderness Extr: (-) calf tenderness bilaterally A/P Ruptured appendicitis POD 3 lap appendectomy Keep NPO with ice chips Keep NGT on suction as pt is distended despite passing gas. May clamp for ambulation. CXR ordered as clinical exam had decreased BS on right side, has intermittent hypoxia, and c/o SOB. Additionally pt hasn't been using IS. Taught pt how to use IS, and pt able to return demonstration of proper use. Continue abx. Monitor vitals Objective - Vital Signs/Intake and Output Vital Signs (last 24 hours): Temp Pulse Resp BP Pulse Ox 98.5 F 82 18 135/68 96 09/03/18 08:21 09/03/18 10:05 09/03/18 08:21 09/03/18 10:05 09/03/18 08:21 Intake and Output: 09/03/18 09/03/18 06:59 18:59 Output Total 175 Balance -175 - Medications Medications: Current Medications Acetaminophen (Tylenol 650 Mg Supp) 650 mg [place] Q6 PRN PRN Reason: Fever >100.4 F Last Admin: 09/01/18 23:26 Dose: 650 mg Acetaminophen (Tylenol 650 Mg Supp) 650 mg [place] ONCE PRN PRN Reason: Pain, Mild (1-3) Dextrose (Dextrose 50% Inj) 0 ml IV STAT PRN; Protocol PRN Reason: Hypoglycemia Protocol Dextrose (Glutose 15) 0 gm PO ONCE PRN; Protocol PRN Reason: Hypoglycemia Protocol Enoxaparin Sodium (Lovenox) 40 mg SC DAILY [facility]; Protocol Last Admin: 09/03/18 10:04 Dose: 40 mg Glucagon (Glucagen Diagnostic Kit) 0 mg IM STAT PRN; Protocol PRN Reason: Hypoglycemia Protocol Ciprofloxacin (Cipro 400mg/200ml Dsw) 400 mg in 200 mls @ 200 mls/hr IVPB Q12 [facility]; Protocol Last Admin: 09/03/18 09:57 Dose: 200 mls/hr Metronidazole (Flagyl 500mg/100ml Ns) 100 mls @ 100 mls/hr IVPB Q8 [facility]; Protocol Last Admin: 09/03/18 10:22 Dose: 100 mls/hr Sodium Chloride (Sodium Chloride 0.9%) 1,000 mls @ 150 mls/hr IV .Q6H40M [facility] Stop: 09/03/18 16:12 Insulin Human Regular (Humulin R) 0 units SC ACCU-CHECK [facility]; Protocol Last Admin: 09/03/18 11:55 Dose: 1 unit Ketorolac Tromethamine (Toradol) 15 mg IVP Q6 PRN PRN Reason: Pain, moderate (4-7) Ketorolac Tromethamine (Toradol) 30 mg IVP Q6 PRN PRN Reason: Pain, severe (8-10) Losartan Potassium (Cozaar) 100 mg PO DAILY [facility] Last Admin: 09/03/18 10:04 Dose: 100 mg Metoclopramide HCl (Reglan) 10 mg IVP Q6 PRN PRN Reason: Nausea/Vomiting Last Admin: 09/02/18 07:59 Dose: 10 mg Metoprolol Tartrate (Lopressor) 25 mg PO Q12 [facility] Last Admin: 09/03/18 10:05 Dose: 25 mg Ondansetron HCl (Zofran Inj) 2 mg IVP Q4 [facility] Last Admin: 09/03/18 12:01 Dose: 2 mg Pantoprazole Sodium (Protonix Inj) 40 mg IVP DAILY [facility] Last Admin: 09/03/18 10:06 Dose: 40 mg Sertraline HCl (Zoloft) 100 mg PO DAILY [facility] Last Admin: 09/03/18 10:05 Dose: 100 mg Simethicone (Mylicon Chew Tab) 80 mg PO Q8 [facility] Last Admin: 09/03/18 10:32 Dose: 80 mg - Labs Labs: 09/03/18 05:21 09/03/18 05:21 PT 16.6 Seconds (9.8-13.1) H 09/01/18 05:30 INR 1.5 09/01/18 05:30 APTT 33.5 Seconds (25.6-37.1) 09/01/18 05:30
[2018-09-04] MEDS: metroNIDAZOLE 500mg/100ml NS 100 ML IVPB SCH ×3 (01:03→16:47)
[2018-09-04] MEDS: Simethicone 80 mg Chewtab PO SCH ×3 (01:13→16:53)
[2018-09-04 06:12] LABS: HEMOGLOBIN 11.8 g/dL (12.0-18.0); MEAN CELL VOLUME 87.3 fl (80.0-94.0); MEAN CORPUSCULAR HEMOGLOBIN 29.6 pg (27.0-31.0); RED CELL DISTRIBUTION WIDTH 13.9 % (11.5-14.5); WHITE BLOOD COUNT 9.6 K/uL (4.8-10.8)
[2018-09-04 06:26] LABS: BLOOD UREA NITROGEN 26 mg/dl (9-20); CALCIUM 7.6 mg/dL (8.4-10.2); GFR NON-AFRICAN AMERICAN > 60
[2018-09-04] MEDS ORDERED: Sodium Chloride 0.9% 1,000 ML IV SCH ×2 (07:00→11:00)
--- NOTE | 2018-09-04 07:18 | CP.PCM.PN ---
<Sae Granados - Last Filed: 09/04/18 07:15> Subjective - Date & Time of Evaluation Date of Evaluation: 09/04/18 Time of Evaluation: 07:15 - Subjective Subjective: SURGERY NOTE FOR DR. MUNOZ 72M seen and examined at bedside. No acute events overnight. Patient states pain is slightly improved, admits to flatus and multiple bowel movements. He denies nausea/vomiting. Abdominal distention improved. Objective - Vital Signs/Intake and Output Vital Signs (last 24 hours): Temp Pulse Resp BP Pulse Ox 98.6 F 90 20 147/82 94 L 09/04/18 00:06 09/04/18 00:06 09/04/18 00:06 09/04/18 00:06 09/04/18 00:06 - Medications Medications: Current Medications Acetaminophen (Tylenol 650 Mg Supp) 650 mg VT Q6 PRN PRN Reason: Fever >100.4 F Last Admin: 09/01/18 23:26 Dose: 650 mg Acetaminophen (Tylenol 650 Mg Supp) 650 mg VT ONCE PRN PRN Reason: Pain, Mild (1-3) Dextrose (Dextrose 50% Inj) 0 ml IV STAT PRN; Protocol PRN Reason: Hypoglycemia Protocol Dextrose (Glutose 15) 0 gm PO ONCE PRN; Protocol PRN Reason: Hypoglycemia Protocol Enoxaparin Sodium (Lovenox) 40 mg SC DAILY [facility]; Protocol Last Admin: 09/03/18 10:04 Dose: 40 mg Glucagon (Glucagen Diagnostic Kit) 0 mg IM STAT PRN; Protocol PRN Reason: Hypoglycemia Protocol Ciprofloxacin (Cipro 400mg/200ml Dsw) 400 mg in 200 mls @ 200 mls/hr IVPB Q12 [facility]; Protocol Last Admin: 09/03/18 20:32 Dose: 200 mls/hr Metronidazole (Flagyl 500mg/100ml Ns) 100 mls @ 100 mls/hr IVPB Q8 [facility]; Protocol Last Admin: 09/04/18 01:03 Dose: 100 mls/hr Potassium Chloride (Potassium Cl 10meq/50ml Sterile Water) 50 mls @ 50 mls/hr IVPB Q1 [facility] Stop: 09/04/18 11:59 Sodium Chloride (Sodium Chloride 0.9%) 1,000 mls @ 150 mls/hr IV .Q6H40M [facility] Stop: 09/05/18 06:56 Insulin Human Regular (Humulin R) 0 units SC ACCU-CHECK [facility]; Protocol Last Admin: 09/03/18 23:30 Dose: Not Given Ketorolac Tromethamine (Toradol) 15 mg IVP Q6 PRN PRN Reason: Pain, moderate (4-7) Ketorolac Tromethamine (Toradol) 30 mg IVP Q6 PRN PRN Reason: Pain, severe (8-10) Losartan Potassium (Cozaar) 100 mg PO DAILY [facility] Last Admin: 09/03/18 10:04 Dose: 100 mg Metoclopramide HCl (Reglan) 10 mg IVP Q6 PRN PRN Reason: Nausea/Vomiting Last Admin: 09/02/18 07:59 Dose: 10 mg Metoprolol Tartrate (Lopressor) 25 mg PO Q12 [facility] Last Admin: 09/03/18 20:46 Dose: Not Given Ondansetron HCl (Zofran Inj) 2 mg IVP Q4 [facility] Last Admin: 09/04/18 05:40 Dose: Not Given Pantoprazole Sodium (Protonix Inj) 40 mg IVP DAILY [facility] Last Admin: 09/03/18 10:06 Dose: 40 mg Sertraline HCl (Zoloft) 100 mg PO DAILY [facility] Last Admin: 09/03/18 10:05 Dose: 100 mg Simethicone (Mylicon Chew Tab) 80 mg PO Q8 [facility] Last Admin: 09/04/18 01:13 Dose: Not Given - Labs Labs: 09/04/18 05:45 09/04/18 05:45 PT 16.6 Seconds (9.8-13.1) H 09/01/18 05:30 INR 1.5 09/01/18 05:30 APTT 33.5 Seconds (25.6-37.1) 09/01/18 05:30 - Constitutional Appears: Non-toxic, No Acute Distress - Respiratory Exam Respiratory Exam: Clear to Ausculation Bilateral, NORMAL BREATHING PATTERN - Cardiovascular Exam Cardiovascular Exam: REGULAR RHYTHM, +S1, +S2 - GI/Abdominal Exam GI & Abdominal Exam: Soft, Tenderness. absent: Distended, Firm, Guarding, Rigid, Rebound Additional comments: incision CDI NGT - 225cc/24hrs bilious - Extremities Exam Extremities Exam: absent: Pedal Edema, Tenderness - Neurological Exam Neurological Exam: Alert, Awake Assessment and Plan - Assessment and Plan (Free Text) Assessment: 72M s/p Laparoscopic Appendectomy POD#5, Ruptured appendix Plan: - IVF - Continue IV antibiotics - Pain control, Anti-emetics - NGT in place - on suction - Monitor for further bowel function - Serial abdominal exam Further recs discuss with Dr. Jennifer Granados, PGY3 <Trace Glez - Last Filed: 09/04/18 13:40> Objective - Vital Signs/Intake and Output Vital Signs (last 24 hours): Temp Pulse Resp BP Pulse Ox 97.5 F L 85 19 169/82 H 95 09/04/18 07:57 09/04/18 09:28 09/04/18 07:57 09/04/18 09:28 09/04/18 07:57 - Medications Medications: Current Medications Acetaminophen (Tylenol 650 Mg Supp) 650 mg VT Q6 PRN PRN Reason: Fever >100.4 F Last Admin: 09/01/18 23:26 Dose: 650 mg Acetaminophen (Tylenol 650 Mg Supp) 650 mg VT ONCE PRN PRN Reason: Pain, Mild (1-3) Dextrose (Dextrose 50% Inj) 0 ml IV STAT PRN; Protocol PRN Reason: Hypoglycemia Protocol Dextrose (Glutose 15) 0 gm PO ONCE PRN; Protocol PRN Reason: Hypoglycemia Protocol Enoxaparin Sodium (Lovenox) 40 mg SC DAILY [facility]; Protocol Last Admin: 09/04/18 09:27 Dose: 40 mg Glucagon (Glucagen Diagnostic Kit) 0 mg IM STAT PRN; Protocol PRN Reason: Hypoglycemia Protocol Ciprofloxacin (Cipro 400mg/200ml Dsw) 400 mg in 200 mls @ 200 mls/hr IVPB Q12 [facility]; Protocol Last Admin: 09/04/18 09:14 Dose: 200 mls/hr Metronidazole (Flagyl 500mg/100ml Ns) 100 mls @ 100 mls/hr IVPB Q8 [facility]; Protocol Last Admin: 09/04/18 09:15 Dose: 100 mls/hr Insulin Human Regular (Humulin R) 0 units SC ACCU-CHECK [facility]; Protocol Last Admin: 09/04/18 07:30 Dose: Not Given Ketorolac Tromethamine (Toradol) 15 mg IVP Q6 PRN PRN Reason: Pain, moderate (4-7) Ketorolac Tromethamine (Toradol) 30 mg IVP Q6 PRN PRN Reason: Pain, severe (8-10) Losartan Potassium (Cozaar) 100 mg PO DAILY [facility] Last Admin: 09/04/18 09:28 Dose: 100 mg Metoclopramide HCl (Reglan) 10 mg IVP Q6 PRN PRN Reason: Nausea/Vomiting Last Admin: 09/04/18 09:34 Dose: 10 mg Metoprolol Tartrate (Lopressor) 25 mg PO Q12 [facility] Last Admin: 09/04/18 09:28 Dose: 25 mg Ondansetron HCl (Zofran Inj) 2 mg IVP Q4 [facility] Last Admin: 09/04/18 09:45 Dose: 2 mg Pantoprazole Sodium (Protonix Inj) 40 mg IVP DAILY [facility] Last Admin: 09/04/18 09:27 Dose: 40 mg Sertraline HCl (Zoloft) 100 mg PO DAILY [facility] Last Admin: 09/03/18 10:05 Dose: 100 mg Simethicone (Mylicon Chew Tab) 80 mg PO Q8 [facility] Last Admin: 09/04/18 09:45 Dose: 80 mg - Labs Labs: 09/04/18 05:45 09/04/18 05:45 PT 16.6 Seconds (9.8-13.1) H 09/01/18 05:30 INR 1.5 09/01/18 05:30 APTT 33.5 Seconds (25.6-37.1) 09/01/18 05:30 Assessment and Plan - Assessment and Plan (Free Text) Plan: no overnight events. passing flatus and +BMs. Started on clears and tolerating. WBC normal afebrile abd: soft, distended, incisions c/d/i advance to fulls prn pain control
[2018-09-04] MEDS: Insulin Regular 100 units/ml SC SCH ×4 (07:30→23:01)
[2018-09-04] MEDS: Ciprofloxacin 400mg/200ml D5W 400 MG/200 ML BAG IVPB SCH ×2 (09:14→20:55)
[2018-09-04] MEDS: Potassium CL 10 MEQ/50 ML 50 ML IVPB SCH ×4 (09:14→11:26)
[2018-09-04] MEDS: Enoxaparin 40 mg Syringe SC SCH (09:27)
--- NOTE | 2018-09-04 16:48 | CP.PCM.PN ---
<Davis Morocho - Last Filed: 09/04/18 16:45> Subjective - Date & Time of Evaluation Date of Evaluation: 09/04/18 Time of Evaluation: 09:15 - Subjective Subjective: 72 y/o F was evaluated and examined by bedside. Pt reports feeling well, able to ambulate around the floor slowly, passing gasses, and had several loose bowel mo vements since yesterday morning. NG tube was discontinued. Pt feels nauseated with strong food smell, king been able to drink sips of juices. Pt afebrile, with NO acute events overnight. Objective - Vital Signs/Intake and Output Vital Signs (last 24 hours): Temp Pulse Resp BP Pulse Ox 99.3 F 77 20 161/85 H 97 09/04/18 16:30 09/04/18 16:30 09/04/18 16:30 09/04/18 16:30 09/04/18 16:30 - Medications Medications: Current Medications Acetaminophen (Tylenol 650 Mg Supp) 650 mg TN Q6 PRN PRN Reason: Fever >100.4 F Last Admin: 09/01/18 23:26 Dose: 650 mg Acetaminophen (Tylenol 650 Mg Supp) 650 mg TN ONCE PRN PRN Reason: Pain, Mild (1-3) Dextrose (Dextrose 50% Inj) 0 ml IV STAT PRN; Protocol PRN Reason: Hypoglycemia Protocol Dextrose (Glutose 15) 0 gm PO ONCE PRN; Protocol PRN Reason: Hypoglycemia Protocol Enoxaparin Sodium (Lovenox) 40 mg SC DAILY [facility]; Protocol Last Admin: 09/04/18 09:27 Dose: 40 mg Glucagon (Glucagen Diagnostic Kit) 0 mg IM STAT PRN; Protocol PRN Reason: Hypoglycemia Protocol Ciprofloxacin (Cipro 400mg/200ml Dsw) 400 mg in 200 mls @ 200 mls/hr IVPB Q12 [facility]; Protocol Last Admin: 09/04/18 09:14 Dose: 200 mls/hr Metronidazole (Flagyl 500mg/100ml Ns) 100 mls @ 100 mls/hr IVPB Q8 [facility]; Protocol Last Admin: 09/04/18 09:15 Dose: 100 mls/hr Insulin Human Regular (Humulin R) 0 units SC ACCU-CHECK [facility]; Protocol Last Admin: 09/04/18 07:30 Dose: Not Given Ketorolac Tromethamine (Toradol) 15 mg IVP Q6 PRN PRN Reason: Pain, moderate (4-7) Ketorolac Tromethamine (Toradol) 30 mg IVP Q6 PRN PRN Reason: Pain, severe (8-10) Losartan Potassium (Cozaar) 100 mg PO DAILY [facility] Last Admin: 09/04/18 09:28 Dose: 100 mg Metoclopramide HCl (Reglan) 10 mg IVP Q6 PRN PRN Reason: Nausea/Vomiting Last Admin: 09/04/18 09:34 Dose: 10 mg Metoprolol Tartrate (Lopressor) 25 mg PO Q12 [facility] Last Admin: 09/04/18 09:28 Dose: 25 mg Ondansetron HCl (Zofran Inj) 2 mg IVP Q4 [facility] Last Admin: 09/04/18 09:45 Dose: 2 mg Pantoprazole Sodium (Protonix Inj) 40 mg IVP DAILY [facility] Last Admin: 09/04/18 09:27 Dose: 40 mg Sertraline HCl (Zoloft) 100 mg PO DAILY [facility] Last Admin: 09/03/18 10:05 Dose: 100 mg Simethicone (Mylicon Chew Tab) 80 mg PO Q8 [facility] Last Admin: 09/04/18 09:45 Dose: 80 mg - Labs Labs: 09/04/18 05:45 09/04/18 05:45 PT 16.6 Seconds (9.8-13.1) H 09/01/18 05:30 INR 1.5 09/01/18 05:30 APTT 33.5 Seconds (25.6-37.1) 09/01/18 05:30 - Constitutional Appears: Well, No Acute Distress - Head Exam Head Exam: NORMAL INSPECTION - Eye Exam Eye Exam: EOMI, Normal appearance - ENT Exam ENT Exam: Mucous Membranes Moist - Neck Exam Neck Exam: Full ROM, Normal Inspection - Respiratory Exam Respiratory Exam: Clear to Ausculation Bilateral, NORMAL BREATHING PATTERN - Cardiovascular Exam Cardiovascular Exam: +S1, +S2 - GI/Abdominal Exam GI & Abdominal Exam: Distended (mild), Soft. absent: Guarding, Rigid, Tenderness, Normal Bowel Sounds, Rebound - Back Exam Back Exam: absent: CVA tenderness (L), CVA tenderness (R) - Neurological Exam Neurological Exam: Alert, Awake, Oriented x3 Assessment and Plan - Assessment and Plan (Free Text) Assessment: 72 y/o M with a PMHx of HTN, HLD, DM2, MDD, PE and on Warfarin is admitted for evaluation and management of acute appendicitis. PLAN: >Post-operative Ileus --Improved. --Discontinue NG Tube. --Advance diet as tolerated, regular diet by dinner. --Zofran for nausea/vomiting --Ambulation encouraged. --Tentative discharge tomorrow. >Acute appenditics. --S/P LAP appendectomy, POD 4. --General Surgery on board, Dr Rodriguez. --C/w IV Ciprofloxacin and IV Metronidazole --Ambulation encouraged. >Essential Hypertension --Elevated, likely due to pain and recurrent nausea. --Home meds resumed --Monitor BP >DM 2 --Keep Metformin and Gabapentin on hold >Hyperlipidemia --Keep Atorvastatin on hold >Hx of Pulmonary Embolism (2012) --Warfarin on hold for now >DVT prophylaxis --SCD's --INR 1.4 today --C/w Lovenox 40mg daily <Jillian Welsh - Last Filed: 09/07/18 00:36> Objective - Vital Signs/Intake and Output Vital Signs (last 24 hours): Temp Pulse Resp BP Pulse Ox 99.4 F 84 20 163/77 H 94 L 09/06/18 16:20 09/06/18 22:11 09/06/18 16:20 09/06/18 22:11 09/06/18 16:20 Intake and Output: 09/06/18 09/07/18 18:59 06:59 Output Total 700 Balance -700 - Medications Medications: Current Medications Acetaminophen (Tylenol 650 Mg Supp) 650 mg TN Q6 PRN PRN Reason: Fever >100.4 F Last Admin: 09/01/18 23:26 Dose: 650 mg Acetaminophen (Tylenol 650 Mg Supp) 650 mg TN ONCE PRN PRN Reason: Pain, Mild (1-3) Dextrose (Dextrose 50% Inj) 0 ml IV STAT PRN; Protocol PRN Reason: Hypoglycemia Protocol Dextrose (Glutose 15) 0 gm PO ONCE PRN; Protocol PRN Reason: Hypoglycemia Protocol Enoxaparin Sodium (Lovenox) 40 mg SC DAILY [facility]; Protocol Last Admin: 09/06/18 08:34 Dose: 40 mg Glucagon (Glucagen Diagnostic Kit) 0 mg IM STAT PRN; Protocol PRN Reason: Hypoglycemia Protocol Sodium Chloride (Sodium Chloride 0.9%) 1,000 mls @ 100 mls/hr IV .Q10H [facility] Last Admin: 09/06/18 16:18 Dose: 100 mls/hr Ciprofloxacin (Cipro 400mg/200ml Dsw) 400 mg in 200 mls @ 200 mls/hr IVPB Q12 [facility]; Protocol Last Admin: 09/06/18 22:07 Dose: 200 mls/hr Metronidazole (Flagyl 500mg/100ml Ns) 100 mls @ 100 mls/hr IVPB Q8 [facility]; Protocol Last Admin: 09/06/18 20:41 Dose: 100 mls/hr Insulin Human Regular (Humulin R) 0 units SC ACCU-CHECK [facility]; Protocol Last Admin: 09/06/18 22:46 Dose: Not Given Ketorolac Tromethamine (Toradol) 15 mg IVP Q6 PRN PRN Reason: Pain, moderate (4-7) Last Admin: 09/06/18 16:18 Dose: 15 mg Losartan Potassium (Cozaar) 100 mg PO DAILY [facility] Last Admin: 09/06/18 08:35 Dose: Not Given Metoclopramide HCl (Reglan) 10 mg IVP Q6 [facility] Last Admin: 09/06/18 22:14 Dose: 10 mg Metoprolol Tartrate (Lopressor) 25 mg PO Q12 [facility] Last Admin: 09/06/18 22:11 Dose: Not Given Morphine Sulfate (Morphine) 2 mg IVP Q4 PRN PRN Reason: Pain, severe (8-10) Ondansetron HCl (Zofran Inj) 2 mg IVP Q4 [facility] Last Admin: 09/06/18 21:00 Dose: Not Given Pantoprazole Sodium (Protonix Inj) 40 mg IVP DAILY [facility] Last Admin: 09/06/18 08:34 Dose: 40 mg Sertraline HCl (Zoloft) 100 mg PO DAILY [facility] Last Admin: 09/06/18 08:36 Dose: Not Given Simethicone (Mylicon Chew Tab) 80 mg PO Q8 [facility] Last Admin: 09/06/18 16:19 Dose: Not Given - Labs Labs: 09/06/18 05:50 09/06/18 05:50 PT 16.2 Seconds (9.8-13.1) H 09/05/18 16:30 INR 1.4 09/05/18 16:30 APTT 27.9 Seconds (25.6-37.1) 09/05/18 16:30 Attending/Attestation - Attestation I have personally seen and examined this patient.: Yes I have fully participated in the care of the patient.: Yes I have reviewed all pertinent clinical information, including history, physical exam and plan: Yes Notes (Text): 09/07/18 00:36 agree with findings and plan as above
[2018-09-05] MEDS: metroNIDAZOLE 500mg/100ml NS 100 ML IVPB SCH ×3 (01:02→16:58)
[2018-09-05] MEDS: Simethicone 80 mg Chewtab PO SCH ×3 (01:07→17:00)
[2018-09-05 06:02] LABS: HEMOGLOBIN 12.9 g/dL (12.0-18.0); MEAN CELL VOLUME 89.9 fl (80.0-94.0); MEAN CORPUSCULAR HEMOGLOBIN 29.4 pg (27.0-31.0); MEAN CORPUSCULAR HGB CONC 32.7 g/dL (33.0-37.0); RBC 4.38 Mil/uL (4.40-5.90); WHITE BLOOD COUNT 10.6 K/uL (4.8-10.8)
[2018-09-05 06:27] LABS: BLOOD UREA NITROGEN 19 mg/dl (9-20); GFR NON-AFRICAN AMERICAN > 60
--- NOTE | 2018-09-05 07:29 | CP.PCM.PN ---
<Pj Ochoa - Last Filed: 09/05/18 07:27> Subjective - Date & Time of Evaluation Date of Evaluation: 09/05/18 Time of Evaluation: 07:27 - Subjective Subjective: General Surgery Progress Note for Dr. Rodriguez 72M seen and evaluated at bedside this morning. Patient continues to have hiccups and spit up of green/brown fluid. Denies abdominal pain, however abdomen more distended than yesterday. No difficulty with urination. He is passing gas and having BM. Denies f/c, n/v/d, SOB, CP, or urinary symptoms. Objective - Vital Signs/Intake and Output Vital Signs (last 24 hours): Temp Pulse Resp BP Pulse Ox 98.7 F 80 20 152/77 H 96 09/04/18 23:43 09/04/18 23:43 09/04/18 23:43 09/04/18 23:43 09/04/18 23:43 - Medications Medications: Current Medications Acetaminophen (Tylenol 650 Mg Supp) 650 mg UT Q6 PRN PRN Reason: Fever >100.4 F Last Admin: 09/01/18 23:26 Dose: 650 mg Acetaminophen (Tylenol 650 Mg Supp) 650 mg UT ONCE PRN PRN Reason: Pain, Mild (1-3) Dextrose (Dextrose 50% Inj) 0 ml IV STAT PRN; Protocol PRN Reason: Hypoglycemia Protocol Dextrose (Glutose 15) 0 gm PO ONCE PRN; Protocol PRN Reason: Hypoglycemia Protocol Enoxaparin Sodium (Lovenox) 40 mg SC DAILY [facility]; Protocol Last Admin: 09/04/18 09:27 Dose: 40 mg Glucagon (Glucagen Diagnostic Kit) 0 mg IM STAT PRN; Protocol PRN Reason: Hypoglycemia Protocol Ciprofloxacin (Cipro 400mg/200ml Dsw) 400 mg in 200 mls @ 200 mls/hr IVPB Q12 [facility]; Protocol Last Admin: 09/04/18 20:55 Dose: 200 mls/hr Metronidazole (Flagyl 500mg/100ml Ns) 100 mls @ 100 mls/hr IVPB Q8 [facility]; Protocol Last Admin: 09/05/18 01:02 Dose: 100 mls/hr Insulin Human Regular (Humulin R) 0 units SC ACCU-CHECK [facility]; Protocol Last Admin: 09/04/18 23:01 Dose: Not Given Ketorolac Tromethamine (Toradol) 15 mg IVP Q6 PRN PRN Reason: Pain, moderate (4-7) Ketorolac Tromethamine (Toradol) 30 mg IVP Q6 PRN PRN Reason: Pain, severe (8-10) Last Admin: 09/04/18 22:35 Dose: 30 mg Losartan Potassium (Cozaar) 100 mg PO DAILY [facility] Last Admin: 09/04/18 09:28 Dose: 100 mg Metoclopramide HCl (Reglan) 10 mg IVP Q6 PRN PRN Reason: Nausea/Vomiting Last Admin: 09/04/18 09:34 Dose: 10 mg Metoprolol Tartrate (Lopressor) 25 mg PO Q12 [facility] Last Admin: 09/04/18 20:56 Dose: 25 mg Ondansetron HCl (Zofran Inj) 2 mg IVP Q4 [facility] Last Admin: 09/05/18 05:14 Dose: 2 mg Pantoprazole Sodium (Protonix Inj) 40 mg IVP DAILY [facility] Last Admin: 09/04/18 09:27 Dose: 40 mg Sertraline HCl (Zoloft) 100 mg PO DAILY [facility] Last Admin: 09/04/18 13:53 Dose: 100 mg Simethicone (Mylicon Chew Tab) 80 mg PO Q8 [facility] Last Admin: 09/05/18 01:07 Dose: 80 mg - Labs Labs: 09/05/18 05:55 09/05/18 05:55 PT 16.6 Seconds (9.8-13.1) H 09/01/18 05:30 INR 1.5 09/01/18 05:30 APTT 33.5 Seconds (25.6-37.1) 09/01/18 05:30 - Constitutional Appears: Well, Non-toxic, No Acute Distress - Head Exam Head Exam: ATRAUMATIC, NORMAL INSPECTION, NORMOCEPHALIC - Eye Exam Eye Exam: EOMI - ENT Exam ENT Exam: Mucous Membranes Moist - Respiratory Exam Respiratory Exam: NORMAL BREATHING PATTERN. absent: Respiratory Distress - Cardiovascular Exam Cardiovascular Exam: REGULAR RHYTHM. absent: Tachycardia - GI/Abdominal Exam GI & Abdominal Exam: Distended. absent: Firm, Tenderness, Rebound - Neurological Exam Neurological Exam: Alert, Awake, Oriented x3 - Psychiatric Exam Psychiatric exam: Normal Affect, Normal Mood - Skin Skin Exam: Dry, Intact, Normal Color, Warm Assessment and Plan - Assessment and Plan (Free Text) Assessment: 72M s/p laparoscopic appendectomy POD5 Plan: F/u Abd x-ray If distended loops of bowel noted, may need to put back on NPO w/ NGT Monitor bowel function IV Abx Antiemetics and analgesics Encourage ambulation Recommend Physical Therapy Further recommendations per Dr. Jennifer Ochoa PGY1 <Trace Glez - Last Filed: 09/05/18 11:05> Objective - Vital Signs/Intake and Output Vital Signs (last 24 hours): Temp Pulse Resp BP Pulse Ox 97 F L 70 20 170/84 H 98 09/05/18 08:01 09/05/18 09:12 09/05/18 08:01 09/05/18 09:12 09/05/18 08:01 - Medications Medications: Current Medications Acetaminophen (Tylenol 650 Mg Supp) 650 mg UT Q6 PRN PRN Reason: Fever >100.4 F Last Admin: 09/01/18 23:26 Dose: 650 mg Acetaminophen (Tylenol 650 Mg Supp) 650 mg UT ONCE PRN PRN Reason: Pain, Mild (1-3) Dextrose (Dextrose 50% Inj) 0 ml IV STAT PRN; Protocol PRN Reason: Hypoglycemia Protocol Dextrose (Glutose 15) 0 gm PO ONCE PRN; Protocol PRN Reason: Hypoglycemia Protocol Enoxaparin Sodium (Lovenox) 40 mg SC DAILY [facility]; Protocol Last Admin: 09/04/18 09:27 Dose: 40 mg Glucagon (Glucagen Diagnostic Kit) 0 mg IM STAT PRN; Protocol PRN Reason: Hypoglycemia Protocol Ciprofloxacin (Cipro 400mg/200ml Dsw) 400 mg in 200 mls @ 200 mls/hr IVPB Q12 [facility]; Protocol Last Admin: 09/05/18 09:10 Dose: 200 mls/hr Metronidazole (Flagyl 500mg/100ml Ns) 100 mls @ 100 mls/hr IVPB Q8 [facility]; Protocol Last Admin: 09/05/18 09:10 Dose: 100 mls/hr Insulin Human Regular (Humulin R) 0 units SC ACCU-CHECK [facility]; Protocol Last Admin: 09/05/18 08:43 Dose: Not Given Ketorolac Tromethamine (Toradol) 15 mg IVP Q6 PRN PRN Reason: Pain, moderate (4-7) Ketorolac Tromethamine (Toradol) 30 mg IVP Q6 PRN PRN Reason: Pain, severe (8-10) Last Admin: 09/04/18 22:35 Dose: 30 mg Losartan Potassium (Cozaar) 100 mg PO DAILY [facility] Last Admin: 09/05/18 09:11 Dose: Not Given Metoclopramide HCl (Reglan) 10 mg IVP Q6 [facility] Last Admin: 09/05/18 09:13 Dose: 10 mg Metoprolol Tartrate (Lopressor) 25 mg PO Q12 [facility] Last Admin: 09/05/18 09:12 Dose: 25 mg Ondansetron HCl (Zofran Inj) 2 mg IVP Q4 [facility] Last Admin: 09/05/18 09:23 Dose: 2 mg Pantoprazole Sodium (Protonix Inj) 40 mg IVP DAILY [facility] Last Admin: 09/05/18 09:13 Dose: 40 mg Sertraline HCl (Zoloft) 100 mg PO DAILY [facility] Last Admin: 09/05/18 09:14 Dose: Not Given Simethicone (Mylicon Chew Tab) 80 mg PO Q8 [facility] Last Admin: 09/05/18 09:13 Dose: Not Given - Labs Labs: 09/05/18 05:55 09/05/18 05:55 PT 16.6 Seconds (9.8-13.1) H 09/01/18 05:30 INR 1.5 09/01/18 05:30 APTT 33.5 Seconds (25.6-37.1) 09/01/18 05:30 Assessment and Plan - Assessment and Plan (Free Text) Plan: agree with resident pt states distention is improved since the morning, no nausea or vomiting but belching. +diarrhea, no flatus today. abd: soft, distended, no rebound or guarding, no peritoneal signs, incisions c/d/i a/p NPO IVF zofran CT A/P -rule out collection OOB to chair ambulation
[2018-09-05] MEDS ORDERED: Iohexol 240 (50 ml) PO ONE (07:58)
[2018-09-05] MEDS: Insulin Regular 100 units/ml SC SCH ×4 (08:43→22:27)
[2018-09-05] MEDS: Enoxaparin 40 mg Syringe SC SCH (09:00)
--- NOTE | 2018-09-05 09:07 | CP.PCM.PN ---
<Davis Morocho - Last Filed: 09/05/18 09:22> Subjective - Date & Time of Evaluation Date of Evaluation: 09/05/18 Time of Evaluation: 08:00 - Subjective Subjective: 72 y/o F was evaluated and examined by bedside. Pt reports feeling OK, has had loose stools every time he drinks liquids or eats. Pt also has constant belching with some dark greenish material coming out from mouth. Pt has not walked much since last night because of his symptoms. No difficulties urinating. Pt afebrile, NO leukocytosis for 2 days, no acute events overnight. Objective - Vital Signs/Intake and Output Vital Signs (last 24 hours): Temp Pulse Resp BP Pulse Ox 97 F L 70 20 170/84 H 98 09/05/18 08:01 09/05/18 08:01 09/05/18 08:01 09/05/18 08:01 09/05/18 08:01 - Medications Medications: Current Medications Acetaminophen (Tylenol 650 Mg Supp) 650 mg [place] Q6 PRN PRN Reason: Fever >100.4 F Last Admin: 09/01/18 23:26 Dose: 650 mg Acetaminophen (Tylenol 650 Mg Supp) 650 mg [place] ONCE PRN PRN Reason: Pain, Mild (1-3) Dextrose (Dextrose 50% Inj) 0 ml IV STAT PRN; Protocol PRN Reason: Hypoglycemia Protocol Dextrose (Glutose 15) 0 gm PO ONCE PRN; Protocol PRN Reason: Hypoglycemia Protocol Enoxaparin Sodium (Lovenox) 40 mg SC DAILY [facility]; Protocol Last Admin: 09/04/18 09:27 Dose: 40 mg Glucagon (Glucagen Diagnostic Kit) 0 mg IM STAT PRN; Protocol PRN Reason: Hypoglycemia Protocol Ciprofloxacin (Cipro 400mg/200ml Dsw) 400 mg in 200 mls @ 200 mls/hr IVPB Q12 [facility]; Protocol Last Admin: 09/04/18 20:55 Dose: 200 mls/hr Metronidazole (Flagyl 500mg/100ml Ns) 100 mls @ 100 mls/hr IVPB Q8 [facility]; Protocol Last Admin: 09/05/18 01:02 Dose: 100 mls/hr Insulin Human Regular (Humulin R) 0 units SC ACCU-CHECK [facility]; Protocol Last Admin: 09/05/18 08:43 Dose: Not Given Ketorolac Tromethamine (Toradol) 15 mg IVP Q6 PRN PRN Reason: Pain, moderate (4-7) Ketorolac Tromethamine (Toradol) 30 mg IVP Q6 PRN PRN Reason: Pain, severe (8-10) Last Admin: 09/04/18 22:35 Dose: 30 mg Losartan Potassium (Cozaar) 100 mg PO DAILY [facility] Last Admin: 09/04/18 09:28 Dose: 100 mg Metoclopramide HCl (Reglan) 10 mg IVP Q6 [facility] Metoprolol Tartrate (Lopressor) 25 mg PO Q12 [facility] Last Admin: 09/04/18 20:56 Dose: 25 mg Ondansetron HCl (Zofran Inj) 2 mg IVP Q4 [facility] Last Admin: 09/05/18 05:14 Dose: 2 mg Pantoprazole Sodium (Protonix Inj) 40 mg IVP DAILY [facility] Last Admin: 09/04/18 09:27 Dose: 40 mg Sertraline HCl (Zoloft) 100 mg PO DAILY [facility] Last Admin: 09/04/18 13:53 Dose: 100 mg Simethicone (Mylicon Chew Tab) 80 mg PO Q8 [facility] Last Admin: 09/05/18 01:07 Dose: 80 mg - Labs Labs: 09/05/18 05:55 09/05/18 05:55 PT 16.6 Seconds (9.8-13.1) H 09/01/18 05:30 INR 1.5 09/01/18 05:30 APTT 33.5 Seconds (25.6-37.1) 09/01/18 05:30 - Constitutional Appears: No Acute Distress - Head Exam Head Exam: ATRAUMATIC, NORMAL INSPECTION - Eye Exam Eye Exam: EOMI - ENT Exam ENT Exam: Mucous Membranes Moist - Neck Exam Neck Exam: Full ROM, Normal Inspection - Respiratory Exam Respiratory Exam: Clear to Ausculation Bilateral, NORMAL BREATHING PATTERN - Cardiovascular Exam Cardiovascular Exam: +S1, +S2 - GI/Abdominal Exam GI & Abdominal Exam: Distended, Soft, Normal Bowel Sounds. absent: Guarding, Rigid, Tenderness - Extremities Exam Extremities Exam: Full ROM, Normal Inspection. absent: Calf Tenderness, Joint Swelling, Pedal Edema, Tenderness - Neurological Exam Neurological Exam: Alert, Awake, Oriented x3 Assessment and Plan - Assessment and Plan (Free Text) Assessment: 72 y/o M with a PMHx of HTN, HLD, DM2, MDD, PE and on Warfarin is admitted for evaluation and management of acute appendicitis. PLAN: >Post-operative Ileus --Still abdominal distension, belching, dark green material from mouth. --Repeated abdominal X-ray shows dilated intestines (f/u final reports) --NPO, considering NG tube placement. --Zofran and Metoclopramide, scheduled as per Gen Surgery. --CT Abdomen pelvis with PO and IV contrast. --Ambulation encouraged. >Acute appenditics. --S/P LAP appendectomy, POD 5. --Afebrile, NO leukocytosis. --General Surgery on board, Dr Rodriguez. --C/w IV Ciprofloxacin and IV Metronidazole --Ambulation encouraged. >Hypokalemia --Serum K+ 3.5-low --Serum Mg at goal 2.0 --Considering supplementing KCl 20mEq after contrast administration. >Essential Hypertension --Elevated, likely due to pain and recurrent nausea. --Home meds resumed --Monitor BP >DM 2 --Keep Metformin and Gabapentin on hold >Hyperlipidemia --Keep Atorvastatin on hold >Hx of Pulmonary Embolism (2012) --Warfarin on hold for now >DVT/PE prophylaxis --SCD's --C/w Lovenox 40mg daily <Jillian Welsh - Last Filed: 09/07/18 00:35> Objective - Vital Signs/Intake and Output Vital Signs (last 24 hours): Temp Pulse Resp BP Pulse Ox 99.4 F 84 20 163/77 H 94 L 09/06/18 16:20 09/06/18 22:11 09/06/18 16:20 09/06/18 22:11 09/06/18 16:20 Intake and Output: 09/06/18 09/07/18 18:59 06:59 Output Total 700 Balance -700 - Medications Medications: Current Medications Acetaminophen (Tylenol 650 Mg Supp) 650 mg [place] Q6 PRN PRN Reason: Fever >100.4 F Last Admin: 09/01/18 23:26 Dose: 650 mg Acetaminophen (Tylenol 650 Mg Supp) 650 mg [place] ONCE PRN PRN Reason: Pain, Mild (1-3) Dextrose (Dextrose 50% Inj) 0 ml IV STAT PRN; Protocol PRN Reason: Hypoglycemia Protocol Dextrose (Glutose 15) 0 gm PO ONCE PRN; Protocol PRN Reason: Hypoglycemia Protocol Enoxaparin Sodium (Lovenox) 40 mg SC DAILY [facility]; Protocol Last Admin: 09/06/18 08:34 Dose: 40 mg Glucagon (Glucagen Diagnostic Kit) 0 mg IM STAT PRN; Protocol PRN Reason: Hypoglycemia Protocol Sodium Chloride (Sodium Chloride 0.9%) 1,000 mls @ 100 mls/hr IV .Q10H [facility] Last Admin: 09/06/18 16:18 Dose: 100 mls/hr Ciprofloxacin (Cipro 400mg/200ml Dsw) 400 mg in 200 mls @ 200 mls/hr IVPB Q12 [facility]; Protocol Last Admin: 09/06/18 22:07 Dose: 200 mls/hr Metronidazole (Flagyl 500mg/100ml Ns) 100 mls @ 100 mls/hr IVPB Q8 [facility]; Protocol Last Admin: 09/06/18 20:41 Dose: 100 mls/hr Insulin Human Regular (Humulin R) 0 units SC ACCU-CHECK [facility]; Protocol Last Admin: 09/06/18 22:46 Dose: Not Given Ketorolac Tromethamine (Toradol) 15 mg IVP Q6 PRN PRN Reason: Pain, moderate (4-7) Last Admin: 09/06/18 16:18 Dose: 15 mg Losartan Potassium (Cozaar) 100 mg PO DAILY [facility] Last Admin: 09/06/18 08:35 Dose: Not Given Metoclopramide HCl (Reglan) 10 mg IVP Q6 [facility] Last Admin: 09/06/18 22:14 Dose: 10 mg Metoprolol Tartrate (Lopressor) 25 mg PO Q12 [facility] Last Admin: 09/06/18 22:11 Dose: Not Given Morphine Sulfate (Morphine) 2 mg IVP Q4 PRN PRN Reason: Pain, severe (8-10) Ondansetron HCl (Zofran Inj) 2 mg IVP Q4 [facility] Last Admin: 09/06/18 21:00 Dose: Not Given Pantoprazole Sodium (Protonix Inj) 40 mg IVP DAILY [facility] Last Admin: 09/06/18 08:34 Dose: 40 mg Sertraline HCl (Zoloft) 100 mg PO DAILY [facility] Last Admin: 09/06/18 08:36 Dose: Not Given Simethicone (Mylicon Chew Tab) 80 mg PO Q8 [facility] Last Admin: 09/06/18 16:19 Dose: Not Given - Labs Labs: 09/06/18 05:50 09/06/18 05:50 PT 16.2 Seconds (9.8-13.1) H 09/05/18 16:30 INR 1.4 09/05/18 16:30 APTT 27.9 Seconds (25.6-37.1) 09/05/18 16:30 Attending/Attestation - Attestation I have personally seen and examined this patient.: Yes I have fully participated in the care of the patient.: Yes I have reviewed all pertinent clinical information, including history, physical exam and plan: Yes Notes (Text): 09/07/18 00:35 agree with findings and plan as above
[2018-09-05] MEDS: Ciprofloxacin 400mg/200ml D5W 400 MG/200 ML BAG IVPB SCH ×2 (09:10→21:50)
--- NOTE | 2018-09-05 10:53 | RAD ---
Date of service: 09/05/2018 HISTORY: post op ileus, abd distention COMPARISON: 08/03/2018. FINDINGS: BOWEL: Persistent small bowel obstruction progressive compared to the prior study. BONES: Normal. OTHER FINDINGS: Vena Tech type IVC filter Removal of support apparatus since the prior study: Nasogastric tube. IMPRESSION: Worsening small bowel obstruction following nasogastric tube removal.
[2018-09-05] MEDS ORDERED: Iohexol 300 100 ML IJ ONE (12:40)
[2018-09-05] MEDS ORDERED: Sodium Chloride 0.9% 50 ML IV ONE (12:40)
--- NOTE | 2018-09-05 14:17 | CT ---
Date of service: 09/05/2018 PROCEDURE: CT Abdomen and Pelvis with contrast HISTORY: Abdominal distension, vomiting s/p appendectomy COMPARISON: 08/30/2018. TECHNIQUE: CT scan of the abdomen and pelvis was performed after administration of intravenous contrast. Oral contrast was administered. Coronal and sagittal reformatted images were obtained. Contrast dose: 95 mL Omnipaque 300 Radiation dose: Total exam DLP = 763.82 mGy-cm. This CT exam was performed using one or more of the following dose reduction techniques: Automated exposure control, adjustment of the mA and/or kV according to patient size, and/or use of iterative reconstruction technique. FINDINGS: LOWER THORAX: Small bilateral pleural effusions, larger on the right with subsegmental atelectasis in the right lower lobe. LIVER: Fatty liver. Normal in size with homogeneous enhancement. No gross lesion or ductal dilatation. GALLBLADDER AND BILE DUCTS: Well distended. No calcified gallstones, wall thickening or pericholecystic fluid. PANCREAS: Normal in size with homogeneous enhancement. No gross lesion or ductal dilatation. SPLEEN: Mild splenomegaly. Normal enhancement ADRENALS: No discrete nodule. KIDNEYS AND URETERS: Normal in size with homogeneous enhancement. No hydronephrosis. No solid mass. There are simple cysts in the upper pole of the left kidney, the largest exophytic cyst measures 8.8 by 6.8 cm. VASCULATURE: No aortic aneurysm. An infrarenal IVC filter remains in place. There are advanced atherosclerotic aortoiliac calcifications. BOWEL: There is severe dilatation of fluid-filled proximal and medial small-bowel loops leading up to a defect in the left lower anterolateral abdominal wall. Decompressed bowel loop is seen exiting from the defect. The distal small bowel loops are fluid-filled and normal in caliber. The defect is identified at the lateral border of the rectus sheath. The colon is decompressed. There is colonic diverticulosis without CT evidence for acute diverticulitis. There is fluid in the rectum. APPENDIX: Postsurgical changes of appendectomy with a running suture line at the base of the cecum. There are inflammatory changes in the right lower quadrant fat. PERITONEUM: There is small amount of perihepatic fluid. No free air. LYMPH NODES: No enlarged lymph nodes. BLADDER: Well distended and normal in appearance. REPRODUCTIVE: The prostate gland is normal in size. BONES: Old superior endplate compression deformity in the L4 vertebral body. Multilevel degenerative changes, worse at L1-2 with mild degenerative retrolisthesis of L1 or L2. OTHER FINDINGS: There are bilateral small fat containing inguinal hernias. IMPRESSION: Findings are most compatible with acute small bowel obstruction resulting from incarcerated left spigelian hernia. Status post appendectomy. Postoperative changes in the right lower quadrant. Small bilateral effusions, larger on the right with subsegmental atelectasis in the right lower lobe. Small perihepatic ascites.
[2018-09-05] MEDS ORDERED: Chlorhexidine Gluconate 1 APPL/PKT TP ONE (14:49)
[2018-09-05] MEDS ORDERED: Succinylcholine 200 mg/10 ml Inj IV ONE (17:14)
[2018-09-05] MEDS ORDERED: Rocuronium 10 mg/ml (5 ml) ONE (17:14)
[2018-09-05] MEDS ORDERED: Bupivacaine 0.5% Inj(30mL) ONE (17:23)
[2018-09-05] MEDS ORDERED: Lidocaine 1% Inj (20ml) ONE (17:23)
[2018-09-05 17:24] LABS: INR 1.4; PROTHROMBIN TIME 16.2 Seconds (9.8-13.1)
[2018-09-05 17:27] LABS: PARTIAL THROMBOPLASTIN TIME 27.9 Seconds (25.6-37.1)
[2018-09-05] MEDS ORDERED: Etomidate 20 mg/10ml Inj IV ONE (18:02)
[2018-09-05] MEDS ORDERED: Midazolam 2 MG/2 ML VIAL ONE (18:02)
[2018-09-05] MEDS ORDERED: Phenylephrine 10 mg/ml Inj ONE (18:05)
[2018-09-05] MEDS ORDERED: Sodium Chloride 0.9% 1,000 ML IV ONE (18:08)
[2018-09-05] MEDS ORDERED: Lactated Ringer's 1,000 ML IV ONE (18:08)
[2018-09-05] MEDS ORDERED: Neostigmine 1:1000 (1 mg/ml) Inj ONE (18:53)
--- NOTE | 2018-09-05 19:16 | PCM.SURG1 ---
Surgeon's Initial Post Op Note - Surgeon's Notes Surgeon: Newton Legal Project Manager: Burgess Rodriguez MD PGY4 Type of Anesthesia: General Endo Pre-Operative Diagnosis: Incarcerated incisional hernia Operative Findings: Incarcerated incisional hernia, viable bowel. Post-Operative Diagnosis: Incarcerated incisional hernia Operation Performed: Wound exploration, Incarcerated incisional hernia repair Specimen/Specimens Removed: N/A Estimated Blood Loss: EBL {In ML}: 10 Blood Products Given: N/A Drains Used: No Drains Post-Op Condition: Good Date of Surgery/Procedure: 09/05/18 Time of Surgery/Procedure: 18:08
[2018-09-05] MEDS ORDERED: Morphine 4 MG/ML VIAL IVP PRN ×2 (19:19→19:21)
[2018-09-05] MEDS: Sodium Chloride 0.9% 1,000 ML IV SCH (19:35)
--- NOTE | 2018-09-05 21:45 | CP.PCM.PCO ---
Addendum Addendum: Patient seen and examined at bedside, post op s/p incarcerated incisional hernia repair. Patient tolerated well the procedure under general anesthesia, minimal blood loss. He is AAO x3, reports feeling better and denies pain at this time. No nausea, vomiting, CP, palpitations or sob, afebrile. Voiding w/o difficulty. VSS, NGT to wall suction, NC at 2 lpm Lungs CTA b/l CVS: RRR, + S1 S2, no tachy Abd: soft, mild distended, + BS, no tenderness, left lower quadrant dressing in place clean and dry, no external drainages noted. Plan: - I/O - IV fluids - pain management - IS and early ambulation encouraged - DVT prophylaxis to restart in am - Surgery team on board - rest of plan as ordered
[2018-09-06] MEDS: Simethicone 80 mg Chewtab PO SCH ×3 (01:13→16:19)
[2018-09-06] MEDS: metroNIDAZOLE 500mg/100ml NS 100 ML IVPB SCH ×3 (02:16→20:41)
[2018-09-06 06:26] LABS: BASO % 0.3 % (0.0-2.0); EOS # 0.2 K/uL (0.0-0.7); EOS % 1.9 % (0.0-4.0); HEMOGLOBIN 12.4 g/dL (12.0-18.0); LYMPH # 0.9 K/uL (1.0-4.3); MEAN CELL VOLUME 87.3 fl (80.0-94.0); MEAN CORPUSCULAR HEMOGLOBIN 29.3 pg (27.0-31.0); MEAN CORPUSCULAR HGB CONC 33.5 g/dL (33.0-37.0); MEAN PLATELET VOLUME 7.7 fl (7.2-11.7); MONO # 0.8 K/uL (0.0-0.8); MONO % 8.8 % (0.0-10.0); NRBC % 0.1 % (0.0-0.0); RBC 4.22 Mil/uL (4.40-5.90); RED CELL DISTRIBUTION WIDTH 13.9 % (11.5-14.5); WHITE BLOOD COUNT 8.9 K/uL (4.8-10.8)
[2018-09-06 06:55] LABS: ALB/GLOB RATIO 0.9 (1.0-2.1); ALBUMIN 2.5 g/dL (3.5-5.0); ALT/SGPT 26 U/L (21-72); AST/SGOT 29 U/L (17-59); BLOOD UREA NITROGEN 14 mg/dl (9-20); CALCIUM 7.2 mg/dL (8.4-10.2); GFR NON-AFRICAN AMERICAN > 60
[2018-09-06] MEDS: Insulin Regular 100 units/ml SC SCH ×4 (07:20→22:46)
--- NOTE | 2018-09-06 07:49 | CP.PCM.PN ---
Subjective - Date & Time of Evaluation Date of Evaluation: 09/06/18 Time of Evaluation: 07:46 Objective - Vital Signs/Intake and Output Vital Signs (last 24 hours): Temp Pulse Resp BP Pulse Ox 98.2 F 92 H 18 157/79 H 95 09/06/18 04:41 09/06/18 04:41 09/06/18 04:41 09/06/18 04:41 09/06/18 04:41 Intake and Output: 09/06/18 09/06/18 06:59 18:59 Intake Total 500 Output Total 400 Balance 500 -400 - Medications Medications: Current Medications Acetaminophen (Tylenol 650 Mg Supp) 650 mg [place] Q6 PRN PRN Reason: Fever >100.4 F Last Admin: 09/01/18 23:26 Dose: 650 mg Acetaminophen (Tylenol 650 Mg Supp) 650 mg [place] ONCE PRN PRN Reason: Pain, Mild (1-3) Dextrose (Dextrose 50% Inj) 0 ml IV STAT PRN; Protocol PRN Reason: Hypoglycemia Protocol Dextrose (Glutose 15) 0 gm PO ONCE PRN; Protocol PRN Reason: Hypoglycemia Protocol Enoxaparin Sodium (Lovenox) 40 mg SC DAILY [facility]; Protocol Last Admin: 09/05/18 09:00 Dose: Not Given Glucagon (Glucagen Diagnostic Kit) 0 mg IM STAT PRN; Protocol PRN Reason: Hypoglycemia Protocol Ciprofloxacin (Cipro 400mg/200ml Dsw) 400 mg in 200 mls @ 200 mls/hr IVPB Q12 [facility]; Protocol Last Admin: 09/05/18 21:50 Dose: 200 mls/hr Metronidazole (Flagyl 500mg/100ml Ns) 100 mls @ 100 mls/hr IVPB Q8 [facility]; Protocol Last Admin: 09/06/18 02:16 Dose: 100 mls/hr Sodium Chloride (Sodium Chloride 0.9%) 1,000 mls @ 100 mls/hr IV .Q10H [facility] Last Admin: 09/05/18 19:35 Dose: 100 mls/hr Insulin Human Regular (Humulin R) 0 units SC ACCU-CHECK [facility]; Protocol Last Admin: 09/06/18 07:20 Dose: Not Given Ketorolac Tromethamine (Toradol) 15 mg IVP Q6 PRN PRN Reason: Pain, moderate (4-7) Last Admin: 09/05/18 15:52 Dose: 15 mg Ketorolac Tromethamine (Toradol) 30 mg IVP Q6 PRN PRN Reason: Pain, severe (8-10) Last Admin: 09/06/18 02:21 Dose: 30 mg Losartan Potassium (Cozaar) 100 mg PO DAILY [facility] Last Admin: 09/05/18 09:11 Dose: Not Given Metoclopramide HCl (Reglan) 10 mg IVP Q6 [facility] Last Admin: 09/06/18 04:56 Dose: Not Given Metoprolol Tartrate (Lopressor) 25 mg PO Q12 [facility] Last Admin: 09/05/18 21:51 Dose: Not Given Morphine Sulfate (Morphine) 4 mg IVP Q4 PRN PRN Reason: Pain, severe (8-10) Ondansetron HCl (Zofran Inj) 2 mg IVP Q4 [facility] Last Admin: 09/06/18 04:56 Dose: Not Given Pantoprazole Sodium (Protonix Inj) 40 mg IVP DAILY [facility] Last Admin: 09/05/18 09:13 Dose: 40 mg Sertraline HCl (Zoloft) 100 mg PO DAILY [facility] Last Admin: 09/05/18 09:14 Dose: Not Given Simethicone (Mylicon Chew Tab) 80 mg PO Q8 [facility] Last Admin: 09/06/18 01:13 Dose: Not Given - Labs Labs: 09/06/18 05:50 09/06/18 05:50 PT 16.2 Seconds (9.8-13.1) H 09/05/18 16:30 INR 1.4 09/05/18 16:30 APTT 27.9 Seconds (25.6-37.1) 09/05/18 16:30
--- NOTE | 2018-09-06 08:00 | CP.PCM.PN ---
Subjective - Date & Time of Evaluation Date of Evaluation: 09/06/18 Time of Evaluation: 07:57 - Subjective Subjective: Gen Sx: Dr Glez Pt S&E. POD#1 s/p take-back for incisional hernia. Pt reports he is doing well. Pain well controlled. NGT in place with 300 cc output. Denies flatus or BM since OR. Denies n/v, f/c. has been OOB and ambulating. Objective - Vital Signs/Intake and Output Vital Signs (last 24 hours): Temp Pulse Resp BP Pulse Ox 98.2 F 92 H 18 157/79 H 95 09/06/18 04:41 09/06/18 04:41 09/06/18 04:41 09/06/18 04:41 09/06/18 04:41 Intake and Output: 09/06/18 09/06/18 06:59 18:59 Intake Total 500 Output Total 400 Balance 500 -400 - Medications Medications: Current Medications Acetaminophen (Tylenol 650 Mg Supp) 650 mg [place] Q6 PRN PRN Reason: Fever >100.4 F Last Admin: 09/01/18 23:26 Dose: 650 mg Acetaminophen (Tylenol 650 Mg Supp) 650 mg [place] ONCE PRN PRN Reason: Pain, Mild (1-3) Dextrose (Dextrose 50% Inj) 0 ml IV STAT PRN; Protocol PRN Reason: Hypoglycemia Protocol Dextrose (Glutose 15) 0 gm PO ONCE PRN; Protocol PRN Reason: Hypoglycemia Protocol Enoxaparin Sodium (Lovenox) 40 mg SC DAILY [facility]; Protocol Last Admin: 09/05/18 09:00 Dose: Not Given Glucagon (Glucagen Diagnostic Kit) 0 mg IM STAT PRN; Protocol PRN Reason: Hypoglycemia Protocol Ciprofloxacin (Cipro 400mg/200ml Dsw) 400 mg in 200 mls @ 200 mls/hr IVPB Q12 [facility]; Protocol Last Admin: 09/05/18 21:50 Dose: 200 mls/hr Metronidazole (Flagyl 500mg/100ml Ns) 100 mls @ 100 mls/hr IVPB Q8 [facility]; Protocol Last Admin: 09/06/18 02:16 Dose: 100 mls/hr Sodium Chloride (Sodium Chloride 0.9%) 1,000 mls @ 100 mls/hr IV .Q10H [facility] Last Admin: 09/05/18 19:35 Dose: 100 mls/hr Potassium Chloride (Potassium Chloride 20 Meq/100 Ml) 100 mls @ 50 mls/hr IVPB Q2 [facility] Stop: 09/06/18 11:59 Insulin Human Regular (Humulin R) 0 units SC ACCU-CHECK [facility]; Protocol Last Admin: 09/06/18 07:20 Dose: Not Given Ketorolac Tromethamine (Toradol) 15 mg IVP Q6 PRN PRN Reason: Pain, moderate (4-7) Last Admin: 09/05/18 15:52 Dose: 15 mg Ketorolac Tromethamine (Toradol) 30 mg IVP Q6 PRN PRN Reason: Pain, severe (8-10) Last Admin: 09/06/18 02:21 Dose: 30 mg Losartan Potassium (Cozaar) 100 mg PO DAILY [facility] Last Admin: 09/05/18 09:11 Dose: Not Given Metoclopramide HCl (Reglan) 10 mg IVP Q6 [facility] Last Admin: 09/06/18 04:56 Dose: Not Given Metoprolol Tartrate (Lopressor) 25 mg PO Q12 [facility] Last Admin: 09/05/18 21:51 Dose: Not Given Morphine Sulfate (Morphine) 4 mg IVP Q4 PRN PRN Reason: Pain, severe (8-10) Ondansetron HCl (Zofran Inj) 2 mg IVP Q4 [facility] Last Admin: 09/06/18 04:56 Dose: Not Given Pantoprazole Sodium (Protonix Inj) 40 mg IVP DAILY [facility] Last Admin: 09/05/18 09:13 Dose: 40 mg Sertraline HCl (Zoloft) 100 mg PO DAILY [facility] Last Admin: 09/05/18 09:14 Dose: Not Given Simethicone (Mylicon Chew Tab) 80 mg PO Q8 [facility] Last Admin: 09/06/18 01:13 Dose: Not Given - Labs Labs: 09/06/18 05:50 09/06/18 05:50 PT 16.2 Seconds (9.8-13.1) H 09/05/18 16:30 INR 1.4 09/05/18 16:30 APTT 27.9 Seconds (25.6-37.1) 09/05/18 16:30 - Constitutional Appears: Non-toxic - Eye Exam Eye Exam: Normal appearance - ENT Exam ENT Exam: Mucous Membranes Dry - Respiratory Exam Respiratory Exam: absent: Accessory Muscle Use, Respiratory Distress - Cardiovascular Exam Cardiovascular Exam: REGULAR RHYTHM. absent: Tachycardia - GI/Abdominal Exam GI & Abdominal Exam: Distended, Soft. absent: Firm, Guarding, Rigid, Tenderness Additional comments: distended but soft, still tympanic - Neurological Exam Neurological Exam: Alert, Awake, Oriented x3 - Psychiatric Exam Psychiatric exam: Normal Affect - Skin Skin Exam: Normal Color Assessment and Plan - Assessment and Plan (Free Text) Assessment: 72M s/p lap appy with perforated appendicitis complicated by post-op incisional hernia, POD#1 s/p repair Plan: cont NGT to LCS - awaiting bowel function K replaced by primary team encourage ambulation cont reglan 6h IV ATC we will monitor closely d/w Dr Newton Pinon, PGY4
[2018-09-06] MEDS: Enoxaparin 40 mg Syringe SC SCH (08:34)
[2018-09-06] MEDS: Ciprofloxacin 400mg/200ml D5W 400 MG/200 ML BAG IVPB SCH ×2 (08:34→22:07)
[2018-09-06] MEDS: Sodium Chloride 0.9% 1,000 ML IV SCH ×2 (08:36→16:18)
--- NOTE | 2018-09-06 09:28 | CP.PCM.PN ---
Subjective - Date & Time of Evaluation Date of Evaluation: 09/06/18 Time of Evaluation: 09:25 - Subjective Subjective: General Surgery Pt seen and examined this AM. He had 1 watery BM, (-) flatus today. He is NPO and has a NGT in place. His main concern today is that he is very thirsty. He overall feels better compared to yesterday. Afebrile. Labs and vitals noted. NGT output: 400ml overnight. PE Gen: Pt laying in bed in NAD Skin: warm and dry HENT: (+) NGT in place with bilious ouput, with 80ml in cannister since 7am. Cardio: s1s2 RRR Lungs: CTA bilaterally Abd: Soft, (+) distended, (-) tenderness, Incisions c/d/i Extr: (-) calf tenderness bilaterally A/P POD 6 s/p lap appy with perforated appendicitis complicated by post-op incisional hernia, POD#1 s/p primary repair Keep NGT in place in low continuos suction D/C antibiotics Continue IVF Keep NPO Monitor NGT output Monitor bowel function Monitor electrolytes Objective - Vital Signs/Intake and Output Vital Signs (last 24 hours): Temp Pulse Resp BP Pulse Ox 98.5 F 80 19 153/70 H 97 09/06/18 08:08 09/06/18 08:08 09/06/18 08:08 09/06/18 08:08 09/06/18 08:08 Intake and Output: 09/06/18 09/06/18 06:59 18:59 Intake Total 500 Output Total 400 Balance 500 -400 - Medications Medications: Current Medications Acetaminophen (Tylenol 650 Mg Supp) 650 mg [place] Q6 PRN PRN Reason: Fever >100.4 F Last Admin: 09/01/18 23:26 Dose: 650 mg Acetaminophen (Tylenol 650 Mg Supp) 650 mg [place] ONCE PRN PRN Reason: Pain, Mild (1-3) Dextrose (Dextrose 50% Inj) 0 ml IV STAT PRN; Protocol PRN Reason: Hypoglycemia Protocol Dextrose (Glutose 15) 0 gm PO ONCE PRN; Protocol PRN Reason: Hypoglycemia Protocol Enoxaparin Sodium (Lovenox) 40 mg SC DAILY [facility]; Protocol Last Admin: 09/06/18 08:34 Dose: 40 mg Glucagon (Glucagen Diagnostic Kit) 0 mg IM STAT PRN; Protocol PRN Reason: Hypoglycemia Protocol Sodium Chloride (Sodium Chloride 0.9%) 1,000 mls @ 100 mls/hr IV .Q10H [facility] Last Admin: 09/06/18 08:36 Dose: 100 mls/hr Potassium Chloride (Potassium Chloride 20 Meq/100 Ml) 100 mls @ 50 mls/hr IVPB Q2 [facility] Stop: 09/06/18 11:59 Insulin Human Regular (Humulin R) 0 units SC ACCU-CHECK [facility]; Protocol Last Admin: 09/06/18 07:20 Dose: Not Given Ketorolac Tromethamine (Toradol) 15 mg IVP Q6 PRN PRN Reason: Pain, moderate (4-7) Last Admin: 09/05/18 15:52 Dose: 15 mg Ketorolac Tromethamine (Toradol) 30 mg IVP Q6 PRN PRN Reason: Pain, severe (8-10) Last Admin: 09/06/18 02:21 Dose: 30 mg Losartan Potassium (Cozaar) 100 mg PO DAILY [facility] Last Admin: 09/06/18 08:35 Dose: Not Given Metoclopramide HCl (Reglan) 10 mg IVP Q6 [facility] Last Admin: 09/06/18 04:56 Dose: Not Given Metoprolol Tartrate (Lopressor) 25 mg PO Q12 [facility] Last Admin: 09/06/18 08:36 Dose: Not Given Morphine Sulfate (Morphine) 4 mg IVP Q4 PRN PRN Reason: Pain, severe (8-10) Ondansetron HCl (Zofran Inj) 2 mg IVP Q4 [facility] Last Admin: 09/06/18 08:36 Dose: Not Given Pantoprazole Sodium (Protonix Inj) 40 mg IVP DAILY [facility] Last Admin: 09/06/18 08:34 Dose: 40 mg Sertraline HCl (Zoloft) 100 mg PO DAILY [facility] Last Admin: 09/06/18 08:36 Dose: Not Given Simethicone (Mylicon Chew Tab) 80 mg PO Q8 [facility] Last Admin: 09/06/18 08:35 Dose: Not Given - Labs Labs: 09/06/18 05:50 09/06/18 05:50 PT 16.2 Seconds (9.8-13.1) H 09/05/18 16:30 INR 1.4 09/05/18 16:30 APTT 27.9 Seconds (25.6-37.1) 09/05/18 16:30
[2018-09-06] MEDS ORDERED: Morphine 4 MG/ML VIAL IVP PRN (09:30)
[2018-09-06] MEDS: Potassium Chloride 20 mEq 100 ML IVPB SCH (09:44)
--- NOTE | 2018-09-06 11:54 | OP ---
DATE OF PROCEDURE: 08/31/2018 PREOPERATIVE DIAGNOSIS: Acute appendicitis. POSTOPERATIVE DIAGNOSIS: Perforated appendicitis. PROCEDURE: Laparoscopic appendectomy. SURGEON: Trace Glez MD RESIDENT PHYSICIAN: Dr. Ochoa ANESTHESIA: General. FINDINGS: Perforated appendicitis. SPECIMEN: Appendix. ESTIMATED BLOOD LOSS: About 20 mL. POSTOPERATIVE CONDITION: Stable. INDICATION FOR PROCEDURE: This is a 72-year-old male who presented to the OR with complaints of right lower quadrant pain, which worsened over the period. The patient was found to have acute appendicitis on CT scan. On admission, the patient was noted to have an elevated INR of 2.2. The patient is currently on Coumadin for a PE. The patient was initially admitted to the hospital and treated with IV antibiotics to see if there were any resolutions of the patient's symptoms given his elevated INR. The patient did not improve clinically, so on hospital day 1, the decision was made to take the patient to the operating room for a laparoscopic appendectomy. The patient was explained the risks and benefits of procedure including bleeding, infection, possible bowel injury. The patient agreed and consent was obtained. Given the patient's elevated INR, he was given 2 units of FFP along with vitamin K preoperatively. DESCRIPTION OF PROCEDURE: On date of procedure, the patient was brought to the operating room and he was laid supine. Bilateral sequential devices were placed to lower extremities. The patient was then placed under general endotracheal anesthesia. A Hernandez catheter was placed under sterile condition. The patient was prepped and draped in a usual sterile fashion. After an adequate timeout, an infraumbilical 0.5 cm transverse incision was made. A 5-mm trocar was placed through this incision into the abdomen. The abdomen was insufflated with CO2 to 15 mmHg, which the patient tolerated well. We then inserted a 5-mm laparoscope into the abdominal cavity. The abdomen was examined, no obvious bowel injury noted from an initial port site insertion. We inspected the abdominal cavity. We noted some inflammation to the right lower quadrant. At this point, we proceeded to place one additional 5-mm port to the suprapubic area under direct visualization along with a 12-mm port to the left lower quadrant also under direct visualization. We then proceeded to begin our dissection along the right lower quadrant first identifying the cecum. Of note, there was a good amount of inflammation along the right lower quadrant along with some inflammation around the mesentery and omental inflammation. With continued dissection, we noted that the appendix was adherent to the lateral abdominal wall. We proceeded with our dissection and were able to mobilize the appendix off the lateral wall. We then proceeded to transect some of the mesoappendix along the appendix in order to identify the base of the appendix. We used the LigaSure in order to transect the mesoappendix. After the dissection of the mesoappendix, we were able to adequately visualize the base of the appendix. At this point, we were satisfied with our dissection and we proceeded to use an Endo ENMANUEL to transect the appendix. Once we transected the appendix, we placed an EndoCatch bag at the left lower quadrant port site and then under direct visualization placed the appendix into the EndoCatch bag. At this point, we proceeded to remove the appendix at the left lower quadrant site. Of note, there was some difficulty removing the appendix with the EndoCatch bag due to the size of the appendix and an appendicolith, so we proceeded to extend our fascial incision at the port site in order to remove the appendix. The appendix was removed with the EndoCatch bag. We then proceeded again to re-insufflate the abdomen in order to visualize the abdominal cavity and no gross bleeding noted from our staple line. All the CO2 was expressed out of the abdominal cavity and the trocars were removed. We then proceeded to close the fascia at the left lower quadrant using 0 Vicryl stitch. After adequate closure, no fascial defect was noted at this port site. The wounds were irrigated and the skin was re-approximated using 0 Monocryl and Dermabond on the skin. The patient tolerated the procedure well. He was extubated without any complications. The Hernandez catheter was removed. The patient was then brought to the recovery unit in stable condition. At the end of procedure, there was an adequate count of all instruments, needles and sponges. Trace Glez MD [facility]
--- NOTE | 2018-09-06 12:05 | CP.PCM.PN ---
Subjective - Date & Time of Evaluation Date of Evaluation: 09/06/18 Time of Evaluation: 09:25 - Subjective Subjective: 72 y/o M was seen and examined by bedside. Pt is on POD 1 after incarcerated abdominal hernia repair. NG Tube in place. Pt reports feeling OK but thirsty, pt denies nausea, vomiting, passing gasses or abdominal pain. Pt had a few bowel movements overnight. Pt urinating with NO issues. Pt afebrile, NPO with NO acute events overnight. Objective - Vital Signs/Intake and Output Vital Signs (last 24 hours): Temp Pulse Resp BP Pulse Ox 98.5 F 80 19 153/70 H 97 09/06/18 08:08 09/06/18 08:08 09/06/18 08:08 09/06/18 08:08 09/06/18 08:08 Intake and Output: 09/06/18 09/06/18 06:59 18:59 Intake Total 500 Output Total 400 Balance 500 -400 - Medications Medications: Current Medications Acetaminophen (Tylenol 650 Mg Supp) 650 mg WV Q6 PRN PRN Reason: Fever >100.4 F Last Admin: 09/01/18 23:26 Dose: 650 mg Acetaminophen (Tylenol 650 Mg Supp) 650 mg WV ONCE PRN PRN Reason: Pain, Mild (1-3) Dextrose (Dextrose 50% Inj) 0 ml IV STAT PRN; Protocol PRN Reason: Hypoglycemia Protocol Dextrose (Glutose 15) 0 gm PO ONCE PRN; Protocol PRN Reason: Hypoglycemia Protocol Enoxaparin Sodium (Lovenox) 40 mg SC DAILY [facility]; Protocol Last Admin: 09/06/18 08:34 Dose: 40 mg Glucagon (Glucagen Diagnostic Kit) 0 mg IM STAT PRN; Protocol PRN Reason: Hypoglycemia Protocol Sodium Chloride (Sodium Chloride 0.9%) 1,000 mls @ 100 mls/hr IV .Q10H [facility] Last Admin: 09/06/18 08:36 Dose: 100 mls/hr Insulin Human Regular (Humulin R) 0 units SC ACCU-CHECK [facility]; Protocol Last Admin: 09/06/18 07:20 Dose: Not Given Ketorolac Tromethamine (Toradol) 15 mg IVP Q6 PRN PRN Reason: Pain, moderate (4-7) Last Admin: 09/05/18 15:52 Dose: 15 mg Ketorolac Tromethamine (Toradol) 30 mg IVP Q6 PRN PRN Reason: Pain, severe (8-10) Last Admin: 09/06/18 02:21 Dose: 30 mg Losartan Potassium (Cozaar) 100 mg PO DAILY [facility] Last Admin: 09/06/18 08:35 Dose: Not Given Metoclopramide HCl (Reglan) 10 mg IVP Q6 [facility] Last Admin: 09/06/18 10:16 Dose: 10 mg Metoprolol Tartrate (Lopressor) 25 mg PO Q12 [facility] Last Admin: 09/06/18 08:36 Dose: Not Given Morphine Sulfate (Morphine) 2 mg IVP Q4 PRN PRN Reason: Pain, severe (8-10) Ondansetron HCl (Zofran Inj) 2 mg IVP Q4 [facility] Last Admin: 09/06/18 08:36 Dose: Not Given Pantoprazole Sodium (Protonix Inj) 40 mg IVP DAILY [facility] Last Admin: 09/06/18 08:34 Dose: 40 mg Sertraline HCl (Zoloft) 100 mg PO DAILY [facility] Last Admin: 09/06/18 08:36 Dose: Not Given Simethicone (Mylicon Chew Tab) 80 mg PO Q8 [facility] Last Admin: 09/06/18 08:35 Dose: Not Given - Labs Labs: 09/06/18 05:50 09/06/18 05:50 PT 16.2 Seconds (9.8-13.1) H 09/05/18 16:30 INR 1.4 09/05/18 16:30 APTT 27.9 Seconds (25.6-37.1) 09/05/18 16:30 - Constitutional Appears: No Acute Distress - Head Exam Head Exam: ATRAUMATIC, NORMAL INSPECTION - Eye Exam Eye Exam: EOMI, PERRL - ENT Exam ENT Exam: Mucous Membranes Dry - Neck Exam Neck Exam: Full ROM, Normal Inspection. absent: Meningismus - Respiratory Exam Respiratory Exam: NORMAL BREATHING PATTERN. absent: Rales, Rhonchi, Wheezes - Cardiovascular Exam Cardiovascular Exam: REGULAR RHYTHM, +S1, +S2 - GI/Abdominal Exam GI & Abdominal Exam: Distended, Soft. absent: Firm, Guarding, Rigid, Tenderness, Normal Bowel Sounds - Back Exam Back Exam: absent: CVA tenderness (L), CVA tenderness (R) - Neurological Exam Neurological Exam: Alert, Awake, Oriented x3 Assessment and Plan - Assessment and Plan (Free Text) Assessment: 72 y/o M with a PMHx of HTN, HLD, DM2, MDD, PE and on Warfarin is admitted for evaluation and management of acute appendicitis. PLAN: >Post-operative Ileus --Still abdominal distension, NPO, belching, dark green material from NG Tube kilgore ction. --POD 1, S/P incarcerated abdominal hernia repair and wound exploration. --CT Abdomen showed acute small bowel obstruction incarcerated abdominal hernia. --Simethicone, Zofran and Metoclopramide, scheduled as per Gen Surgery. --Ambulation encouraged. >Acute appenditics. --S/P LAP appendectomy, POD 6. --Afebrile, NO leukocytosis. --General Surgery on board, Dr Rodriguez. --C/w IV Ciprofloxacin and IV Metronidazole --Ambulation encouraged. >Hypokalemia --Serum K+ 3.3-low --IV KCl 40mEq administered. >Essential Hypertension --Home meds resumed --Monitor BP >DM 2 --Keep Metformin and Gabapentin on hold >Hyperlipidemia --Keep Atorvastatin on hold >Hx of Pulmonary Embolism (2012) --Warfarin on hold for now >DVT/PE prophylaxis --SCD's --C/w Lovenox 40mg daily
[2018-09-07] MEDS: Simethicone 80 mg Chewtab PO SCH ×3 (01:00→18:49)
[2018-09-07] MEDS: metroNIDAZOLE 500mg/100ml NS 100 ML IVPB SCH ×3 (02:27→18:38)
--- NOTE | 2018-09-07 06:29 | CP.PCM.PN ---
Subjective - Date & Time of Evaluation Date of Evaluation: 09/07/18 Time of Evaluation: 06:26 - Subjective Subjective: SURGERY NOTE FOR DR. MUNOZ 72M seen and examined at bedside. No acute events. Patient states pain is well controlled, denies nausea, or vomiting. Admits to flatus and patient had a small BM overnight. Objective - Vital Signs/Intake and Output Vital Signs (last 24 hours): Temp Pulse Resp BP Pulse Ox 99.5 F 85 20 157/74 H 98 09/07/18 00:49 09/07/18 00:49 09/07/18 00:49 09/07/18 00:49 09/07/18 00:49 Intake and Output: 09/06/18 09/07/18 18:59 06:59 Output Total 700 Balance -700 - Medications Medications: Current Medications Acetaminophen (Tylenol 650 Mg Supp) 650 mg [place] Q6 PRN PRN Reason: Fever >100.4 F Last Admin: 09/01/18 23:26 Dose: 650 mg Acetaminophen (Tylenol 650 Mg Supp) 650 mg CA ONCE PRN PRN Reason: Pain, Mild (1-3) Dextrose (Dextrose 50% Inj) 0 ml IV STAT PRN; Protocol PRN Reason: Hypoglycemia Protocol Dextrose (Glutose 15) 0 gm PO ONCE PRN; Protocol PRN Reason: Hypoglycemia Protocol Enoxaparin Sodium (Lovenox) 40 mg SC DAILY [facility]; Protocol Last Admin: 09/06/18 08:34 Dose: 40 mg Glucagon (Glucagen Diagnostic Kit) 0 mg IM STAT PRN; Protocol PRN Reason: Hypoglycemia Protocol Sodium Chloride (Sodium Chloride 0.9%) 1,000 mls @ 100 mls/hr IV .Q10H [facility] Last Admin: 09/06/18 16:18 Dose: 100 mls/hr Ciprofloxacin (Cipro 400mg/200ml Dsw) 400 mg in 200 mls @ 200 mls/hr IVPB Q12 [facility]; Protocol Last Admin: 09/06/18 22:07 Dose: 200 mls/hr Metronidazole (Flagyl 500mg/100ml Ns) 100 mls @ 100 mls/hr IVPB Q8 [facility]; Protocol Last Admin: 09/07/18 02:27 Dose: 100 mls/hr Insulin Human Regular (Humulin R) 0 units SC ACCU-CHECK [facility]; Protocol Last Admin: 09/06/18 22:46 Dose: Not Given Ketorolac Tromethamine (Toradol) 15 mg IVP Q6 PRN PRN Reason: Pain, moderate (4-7) Last Admin: 09/06/18 16:18 Dose: 15 mg Losartan Potassium (Cozaar) 100 mg PO DAILY [facility] Last Admin: 09/06/18 08:35 Dose: Not Given Metoclopramide HCl (Reglan) 10 mg IVP Q6 [facility] Last Admin: 09/06/18 22:14 Dose: 10 mg Metoprolol Tartrate (Lopressor) 25 mg PO Q12 [facility] Last Admin: 09/06/18 22:11 Dose: Not Given Morphine Sulfate (Morphine) 2 mg IVP Q4 PRN PRN Reason: Pain, severe (8-10) Ondansetron HCl (Zofran Inj) 2 mg IVP Q4 [facility] Last Admin: 09/06/18 21:00 Dose: Not Given Pantoprazole Sodium (Protonix Inj) 40 mg IVP DAILY [facility] Last Admin: 09/06/18 08:34 Dose: 40 mg Sertraline HCl (Zoloft) 100 mg PO DAILY [facility] Last Admin: 09/06/18 08:36 Dose: Not Given Simethicone (Mylicon Chew Tab) 80 mg PO Q8 [facility] Last Admin: 09/06/18 16:19 Dose: Not Given - Labs Labs: 09/06/18 05:50 09/06/18 05:50 PT 16.2 Seconds (9.8-13.1) H 09/05/18 16:30 INR 1.4 09/05/18 16:30 APTT 27.9 Seconds (25.6-37.1) 09/05/18 16:30 - Constitutional Appears: Non-toxic, No Acute Distress - Respiratory Exam Respiratory Exam: Clear to Ausculation Bilateral, NORMAL BREATHING PATTERN - Cardiovascular Exam Cardiovascular Exam: REGULAR RHYTHM, +S1, +S2 - GI/Abdominal Exam GI & Abdominal Exam: Distended, Soft, Tenderness (midlly tender). absent: Firm, Guarding, Rigid, Rebound Additional comments: Incision is CDI, NGT 100cc bilious output - Extremities Exam Extremities Exam: absent: Pedal Edema, Tenderness Assessment and Plan - Assessment and Plan (Free Text) Assessment: 72M s/p lap appendectomy POD#7 for a perforated appendicitis complicated by post-op incisional hernia causing SBO, POD#1 s/p primary repair Plan: - Continue to monitor NGT output - Abdominal exam - IV fluid - Pain control - Monitor for further bowel function Further recs discuss with Dr. Jennifer Granados, PGY3
[2018-09-07] MEDS: Insulin Regular 100 units/ml SC SCH ×4 (06:49→22:37)
[2018-09-07] MEDS: Sodium Chloride 0.9% 1,000 ML IV SCH (06:52)
--- NOTE | 2018-09-07 07:54 | CP.PCM.PN ---
Subjective - Date & Time of Evaluation Date of Evaluation: 09/07/18 Time of Evaluation: 07:52 - Subjective Subjective: General Surgery Pt seen and examined this AM. Having multiple BMs (liquid and solid) and passing large amount of flatus. Remains NPO. Afebrile. Pt has been ambulatory. Labs and vitals noted. Today's labs pending. PE Gen:Pt laying in bed in NAD Skin: warm and dry Cardio: Irregularly irregular, (-) murmurs, (-) clicks Resp: CTA bilaterally Abd: Soft, (-) distention, Dermabonded incisions c/d/i. LLQ stapled incision c/d/i Extr: (-) calf tenderness bilaterally A/P POD 7 s/p lap appy with perforated appendicitis complicated by post-op incisional hernia, POD2 s/p primary repair of hernia Remove NGT Start clear liquid diet EKG ordered secondary to abnormal clinical finding Recommend D/C abx Continue IVF for now, until pt has good PO intake with clears. Objective - Vital Signs/Intake and Output Vital Signs (last 24 hours): Temp Pulse Resp BP Pulse Ox 99.4 F 79 18 128/74 97 09/07/18 05:00 09/07/18 05:00 09/07/18 05:00 09/07/18 05:00 09/07/18 05:00 Intake and Output: 09/07/18 09/07/18 06:59 18:59 Intake Total 1250 Output Total 600 Balance 650 - Medications Medications: Current Medications Acetaminophen (Tylenol 650 Mg Supp) 650 mg PA Q6 PRN PRN Reason: Fever >100.4 F Last Admin: 09/01/18 23:26 Dose: 650 mg Acetaminophen (Tylenol 650 Mg Supp) 650 mg PA ONCE PRN PRN Reason: Pain, Mild (1-3) Dextrose (Dextrose 50% Inj) 0 ml IV STAT PRN; Protocol PRN Reason: Hypoglycemia Protocol Dextrose (Glutose 15) 0 gm PO ONCE PRN; Protocol PRN Reason: Hypoglycemia Protocol Enoxaparin Sodium (Lovenox) 40 mg SC DAILY [facility]; Protocol Last Admin: 09/06/18 08:34 Dose: 40 mg Glucagon (Glucagen Diagnostic Kit) 0 mg IM STAT PRN; Protocol PRN Reason: Hypoglycemia Protocol Sodium Chloride (Sodium Chloride 0.9%) 1,000 mls @ 100 mls/hr IV .Q10H [facility] Last Admin: 09/07/18 06:52 Dose: 100 mls/hr Ciprofloxacin (Cipro 400mg/200ml Dsw) 400 mg in 200 mls @ 200 mls/hr IVPB Q12 [facility]; Protocol Last Admin: 09/06/18 22:07 Dose: 200 mls/hr Metronidazole (Flagyl 500mg/100ml Ns) 100 mls @ 100 mls/hr IVPB Q8 [facility]; Protocol Last Admin: 09/07/18 02:27 Dose: 100 mls/hr Insulin Human Regular (Humulin R) 0 units SC ACCU-CHECK [facility]; Protocol Last Admin: 09/07/18 06:49 Dose: Not Given Ketorolac Tromethamine (Toradol) 15 mg IVP Q6 PRN PRN Reason: Pain, moderate (4-7) Last Admin: 09/06/18 16:18 Dose: 15 mg Losartan Potassium (Cozaar) 100 mg PO DAILY [facility] Last Admin: 09/06/18 08:35 Dose: Not Given Metoclopramide HCl (Reglan) 10 mg IVP Q6 [facility] Last Admin: 09/07/18 04:50 Dose: 10 mg Metoprolol Tartrate (Lopressor) 25 mg PO Q12 [facility] Last Admin: 09/06/18 22:11 Dose: Not Given Morphine Sulfate (Morphine) 2 mg IVP Q4 PRN PRN Reason: Pain, severe (8-10) Ondansetron HCl (Zofran Inj) 2 mg IVP Q4 [facility] Last Admin: 09/07/18 05:00 Dose: Not Given Pantoprazole Sodium (Protonix Inj) 40 mg IVP DAILY [facility] Last Admin: 09/06/18 08:34 Dose: 40 mg Sertraline HCl (Zoloft) 100 mg PO DAILY [facility] Last Admin: 09/06/18 08:36 Dose: Not Given Simethicone (Mylicon Chew Tab) 80 mg PO Q8 [facility] Last Admin: 09/07/18 01:00 Dose: Not Given - Labs Labs: 09/06/18 05:50 09/06/18 05:50 PT 16.2 Seconds (9.8-13.1) H 09/05/18 16:30 INR 1.4 09/05/18 16:30 APTT 27.9 Seconds (25.6-37.1) 09/05/18 16:30
[2018-09-07 08:41] LABS: HEMOGLOBIN 12.3 g/dL (12.0-18.0); MEAN CORPUSCULAR HEMOGLOBIN 29.6 pg (27.0-31.0); MEAN CORPUSCULAR HGB CONC 34.4 g/dL (33.0-37.0); RBC 4.16 Mil/uL (4.40-5.90); RED CELL DISTRIBUTION WIDTH 13.5 % (11.5-14.5); WHITE BLOOD COUNT 8.6 K/uL (4.8-10.8)
[2018-09-07] MEDS: Ciprofloxacin 400mg/200ml D5W 400 MG/200 ML BAG IVPB SCH ×2 (08:49→20:40)
[2018-09-07] MEDS: Enoxaparin 40 mg Syringe SC SCH (08:51)
[2018-09-07 08:57] LABS: BLOOD UREA NITROGEN 11 mg/dl (9-20); CALCIUM 7.2 mg/dL (8.4-10.2); GFR NON-AFRICAN AMERICAN > 60
[2018-09-07 09:11] VITALS: RESP 20
--- NOTE | 2018-09-07 12:32 | CP.PCM.PN ---
Subjective - Date & Time of Evaluation Date of Evaluation: 09/07/18 Time of Evaluation: 10:12 - Subjective Subjective: 72 y/o M was seen and examined by bedside. Pt reports feeling feeling well, passing gasses and having frequent several small loose bowel movements. Pt urinating with NO issues. NG tube was discontinued. Pt able to ambulate Pt afebrile with NO acute events overnight. Objective - Vital Signs/Intake and Output Vital Signs (last 24 hours): Temp Pulse Resp BP Pulse Ox 98.7 F 85 20 162/82 H 93 L 09/07/18 09:10 09/07/18 09:10 09/07/18 09:10 09/07/18 09:10 09/07/18 09:10 Intake and Output: 09/07/18 09/07/18 06:59 18:59 Intake Total 1250 Output Total 600 Balance 650 - Medications Medications: Current Medications Acetaminophen (Tylenol 650 Mg Supp) 650 mg WV Q6 PRN PRN Reason: Fever >100.4 F Last Admin: 09/01/18 23:26 Dose: 650 mg Acetaminophen (Tylenol 650 Mg Supp) 650 mg WV ONCE PRN PRN Reason: Pain, Mild (1-3) Dextrose (Dextrose 50% Inj) 0 ml IV STAT PRN; Protocol PRN Reason: Hypoglycemia Protocol Dextrose (Glutose 15) 0 gm PO ONCE PRN; Protocol PRN Reason: Hypoglycemia Protocol Enoxaparin Sodium (Lovenox) 40 mg SC DAILY [facility]; Protocol Last Admin: 09/07/18 08:51 Dose: 40 mg Glucagon (Glucagen Diagnostic Kit) 0 mg IM STAT PRN; Protocol PRN Reason: Hypoglycemia Protocol Sodium Chloride (Sodium Chloride 0.9%) 1,000 mls @ 100 mls/hr IV .Q10H [facility] Last Admin: 09/07/18 06:52 Dose: 100 mls/hr Ciprofloxacin (Cipro 400mg/200ml Dsw) 400 mg in 200 mls @ 200 mls/hr IVPB Q12 [facility]; Protocol Last Admin: 09/07/18 08:49 Dose: 200 mls/hr Metronidazole (Flagyl 500mg/100ml Ns) 100 mls @ 100 mls/hr IVPB Q8 [facility]; Protocol Last Admin: 09/07/18 02:27 Dose: 100 mls/hr Insulin Human Regular (Humulin R) 0 units SC ACCU-CHECK [facility]; Protocol Last Admin: 09/07/18 06:49 Dose: Not Given Ketorolac Tromethamine (Toradol) 15 mg IVP Q6 PRN PRN Reason: Pain, moderate (4-7) Last Admin: 09/06/18 16:18 Dose: 15 mg Losartan Potassium (Cozaar) 100 mg PO DAILY [facility] Last Admin: 09/07/18 08:50 Dose: 100 mg Metoclopramide HCl (Reglan) 10 mg IVP Q6 [facility] Last Admin: 09/07/18 08:59 Dose: 10 mg Metoprolol Tartrate (Lopressor) 25 mg PO Q12 [facility] Last Admin: 09/07/18 08:50 Dose: 25 mg Morphine Sulfate (Morphine) 2 mg IVP Q4 PRN PRN Reason: Pain, severe (8-10) Ondansetron HCl (Zofran Inj) 2 mg IVP Q4 [facility] Last Admin: 09/07/18 08:53 Dose: Not Given Pantoprazole Sodium (Protonix Inj) 40 mg IVP DAILY [facility] Last Admin: 09/07/18 08:51 Dose: 40 mg Sertraline HCl (Zoloft) 100 mg PO DAILY [facility] Last Admin: 09/07/18 08:52 Dose: 100 mg Simethicone (Mylicon Chew Tab) 80 mg PO Q8 [facility] Last Admin: 09/07/18 09:12 Dose: 80 mg - Labs Labs: 09/07/18 06:30 09/07/18 06:30 PT 16.2 Seconds (9.8-13.1) H 09/05/18 16:30 INR 1.4 09/05/18 16:30 APTT 27.9 Seconds (25.6-37.1) 09/05/18 16:30 - Constitutional Appears: No Acute Distress - Head Exam Head Exam: ATRAUMATIC, NORMAL INSPECTION - Eye Exam Eye Exam: EOMI - ENT Exam ENT Exam: Mucous Membranes Moist - Neck Exam Neck Exam: Full ROM, Normal Inspection - Respiratory Exam Respiratory Exam: NORMAL BREATHING PATTERN. absent: Rhonchi, Wheezes, Respiratory Distress - Cardiovascular Exam Cardiovascular Exam: +S1, +S2 - GI/Abdominal Exam GI & Abdominal Exam: Distended, Soft, Hyperactive Bowel Sounds. absent: Guarding, Tenderness - Extremities Exam Extremities Exam: Full ROM, Normal Inspection. absent: Calf Tenderness, Pedal Edema - Back Exam Back Exam: absent: CVA tenderness (L), CVA tenderness (R) - Neurological Exam Neurological Exam: Alert, Awake, Oriented x3 - Psychiatric Exam Psychiatric exam: Normal Affect, Normal Mood Assessment and Plan - Assessment and Plan (Free Text) Assessment: 72 y/o M with a PMHx of HTN, HLD, DM2, MDD, PE and on Warfarin is admitted for evaluation and management of acute appendicitis. PLAN: >Post-operative Ileus --Abdomen distension with mild improvement, NG tube dincontinued. --POD 2, S/P incarcerated abdominal hernia repair and wound exploration. --Simethicone, Zofran and Metoclopramide. --Ambulation encouraged. --Advance diet as tolerated, now liquid diet. >Acute appenditics. --S/P LAP appendectomy, POD 7. --Afebrile, NO leukocytosis. --General Surgery on board, Dr Rodriguez. --C/w IV Ciprofloxacin and IV Metronidazole --Ambulation encouraged. >Hypokalemia --Serum K+ 3.3-low again today --Likely due to NPO status and numerous loose stools. --IV KCl 40mEq will be administered. --Magnessium level trending down. Goal of Mg level 2.0. --IV MgSO4, 2gr, ordered. --F/U labs tomorrow. >Essential Hypertension --Home meds resumed --Monitor BP >DM 2 --Keep Metformin and Gabapentin on hold >Hyperlipidemia --Keep Atorvastatin on hold >Hx of Pulmonary Embolism (2012) --Warfarin on hold for now >DVT/PE prophylaxis --SCD's --C/w Lovenox 40mg daily
--- NOTE | 2018-09-07 12:38 | CP.PCM.PN ---
Subjective - Date & Time of Evaluation Date of Evaluation: 09/07/18 Time of Evaluation: 11:30 - Subjective Subjective: Patient seen and examined bedside. Hemodynamically stable, afebrile Post op day 2 after surgical incision hernia repair , doing well Passing flatus and had bowel movements . Abdomen sod=ft and BS present . s/p NGT removal today Objective - Vital Signs/Intake and Output Vital Signs (last 24 hours): Temp Pulse Resp BP Pulse Ox 98.7 F 85 20 162/82 H 93 L 09/07/18 09:10 09/07/18 09:10 09/07/18 09:10 09/07/18 09:10 09/07/18 09:10 Intake and Output: 09/07/18 09/07/18 06:59 18:59 Intake Total 1250 Output Total 600 Balance 650 - Medications Medications: Current Medications Acetaminophen (Tylenol 650 Mg Supp) 650 mg ND Q6 PRN PRN Reason: Fever >100.4 F Last Admin: 09/01/18 23:26 Dose: 650 mg Acetaminophen (Tylenol 650 Mg Supp) 650 mg ND ONCE PRN PRN Reason: Pain, Mild (1-3) Dextrose (Dextrose 50% Inj) 0 ml IV STAT PRN; Protocol PRN Reason: Hypoglycemia Protocol Dextrose (Glutose 15) 0 gm PO ONCE PRN; Protocol PRN Reason: Hypoglycemia Protocol Enoxaparin Sodium (Lovenox) 40 mg SC DAILY [facility]; Protocol Last Admin: 09/07/18 08:51 Dose: 40 mg Glucagon (Glucagen Diagnostic Kit) 0 mg IM STAT PRN; Protocol PRN Reason: Hypoglycemia Protocol Sodium Chloride (Sodium Chloride 0.9%) 1,000 mls @ 100 mls/hr IV .Q10H [facility] Last Admin: 09/07/18 06:52 Dose: 100 mls/hr Ciprofloxacin (Cipro 400mg/200ml Dsw) 400 mg in 200 mls @ 200 mls/hr IVPB Q12 [facility]; Protocol Last Admin: 09/07/18 08:49 Dose: 200 mls/hr Metronidazole (Flagyl 500mg/100ml Ns) 100 mls @ 100 mls/hr IVPB Q8 [facility]; Protocol Last Admin: 09/07/18 02:27 Dose: 100 mls/hr Insulin Human Regular (Humulin R) 0 units SC ACCU-CHECK [facility]; Protocol Last Admin: 09/07/18 06:49 Dose: Not Given Ketorolac Tromethamine (Toradol) 15 mg IVP Q6 PRN PRN Reason: Pain, moderate (4-7) Last Admin: 09/06/18 16:18 Dose: 15 mg Losartan Potassium (Cozaar) 100 mg PO DAILY [facility] Last Admin: 09/07/18 08:50 Dose: 100 mg Metoclopramide HCl (Reglan) 10 mg IVP Q6 [facility] Last Admin: 09/07/18 08:59 Dose: 10 mg Metoprolol Tartrate (Lopressor) 25 mg PO Q12 [facility] Last Admin: 09/07/18 08:50 Dose: 25 mg Morphine Sulfate (Morphine) 2 mg IVP Q4 PRN PRN Reason: Pain, severe (8-10) Ondansetron HCl (Zofran Inj) 2 mg IVP Q4 [facility] Last Admin: 09/07/18 08:53 Dose: Not Given Pantoprazole Sodium (Protonix Inj) 40 mg IVP DAILY [facility] Last Admin: 09/07/18 08:51 Dose: 40 mg Sertraline HCl (Zoloft) 100 mg PO DAILY [facility] Last Admin: 09/07/18 08:52 Dose: 100 mg Simethicone (Mylicon Chew Tab) 80 mg PO Q8 [facility] Last Admin: 09/07/18 09:12 Dose: 80 mg - Labs Labs: 09/07/18 06:30 09/07/18 06:30 PT 16.2 Seconds (9.8-13.1) H 09/05/18 16:30 INR 1.4 09/05/18 16:30 APTT 27.9 Seconds (25.6-37.1) 09/05/18 16:30 - Constitutional Appears: Non-toxic, No Acute Distress - Head Exam Head Exam: ATRAUMATIC, NORMAL INSPECTION, NORMOCEPHALIC - Eye Exam Eye Exam: EOMI, Normal appearance, PERRL Pupil Exam: NORMAL ACCOMODATION - ENT Exam ENT Exam: Mucous Membranes Moist, Normal Exam - Neck Exam Neck Exam: Full ROM, Normal Inspection - Respiratory Exam Respiratory Exam: Clear to Ausculation Bilateral, NORMAL BREATHING PATTERN. absent: Rales, Rhonchi, Wheezes, Respiratory Distress - Cardiovascular Exam Cardiovascular Exam: REGULAR RHYTHM, RRR, +S1, +S2. absent: JVD - GI/Abdominal Exam GI & Abdominal Exam: Soft, Normal Bowel Sounds. absent: Distended, Guarding, Tenderness, Rebound - Rectal Exam Rectal Exam: Deferred - Extremities Exam Extremities Exam: Full ROM, Normal Capillary Refill, Normal Inspection. absent: Calf Tenderness, Pedal Edema - Back Exam Back Exam: NORMAL INSPECTION - Neurological Exam Neurological Exam: Alert, Awake, CN II-XII Intact, Oriented x3 - Psychiatric Exam Psychiatric exam: Normal Affect - Skin Skin Exam: Dry, Normal Color, Warm Assessment and Plan - Assessment and Plan (Free Text) Assessment: 72 y/o male with PMH HTn, dyslipidemia , DM type 2 presented with abdominal pain and fever and was diagnosed with acute appendicitis.Surgery was consulted and started on Cipro and Flagyl IV . s/p laparascopic appendectomy day 7 . Post op recovery complicated with post op ileus secondary to surgical incision incarcerated hernia . At present post surgical incision hernia repair day 2 , doing well NGt removed and started liquid diet Patient underwent lap 1. Acute appendicitis s/p laparascopic appendectomy # 7 doing well, afebrile on Cipro and Flagyl IV surgery following 2. Post op ileus secondary to surgical incision incarcerated hernia s/p hernia repair day 2 passing flatus and had BM NGT removed and started liquid diet today. Will advance diet as tolerated pain management Promote ambulation 3. Hypertension controlled on home meds losartan and metoprolol 4. DM type II Continue accuchecks and insulin coverage Metformin on hold Advance diet as tolerated 5.Hypokalemia replace with KCl Repeat BMP in AM 6. Dyslipidemnia on statin 7.Hx of Pulmonary Embolism (2012) Warfarin on hold for now 8.DVT prophylaxis SCD's Lovenox 40mg daily
[2018-09-07] MEDS ORDERED: Magnesium Sulfate 2 gm/50 ml 2 GM/50 ML BAG IV ONE (13:15)
[2018-09-07] MEDS: Potassium CL 10 MEQ/50 ML 50 ML IVPB SCH ×4 (14:52→21:27)
[2018-09-08] MEDS: metroNIDAZOLE 500mg/100ml NS 100 ML IVPB SCH ×3 (00:10→16:13)
[2018-09-08] MEDS: Simethicone 80 mg Chewtab PO SCH ×3 (00:18→16:14)
[2018-09-08] MEDS: Sodium Chloride 0.9% 1,000 ML IV SCH ×2 (00:19→08:17)
[2018-09-08] MEDS: Insulin Regular 100 units/ml SC SCH ×4 (06:17→23:07)
[2018-09-08 07:53] LABS: HEMOGLOBIN 12.5 g/dL (12.0-18.0); MEAN CELL VOLUME 86.2 fl (80.0-94.0); MEAN CORPUSCULAR HEMOGLOBIN 29.6 pg (27.0-31.0); MEAN CORPUSCULAR HGB CONC 34.3 g/dL (33.0-37.0); RBC 4.23 Mil/uL (4.40-5.90); RED CELL DISTRIBUTION WIDTH 13.7 % (11.5-14.5); WHITE BLOOD COUNT 8.4 K/uL (4.8-10.8)
[2018-09-08] MEDS: Ciprofloxacin 400mg/200ml D5W 400 MG/200 ML BAG IVPB SCH ×2 (08:16→20:29)
[2018-09-08] MEDS: Enoxaparin 40 mg Syringe SC SCH (08:16)
[2018-09-08 08:28] LABS: BLOOD UREA NITROGEN 5 mg/dl (9-20); CALCIUM 7.4 mg/dL (8.4-10.2); GFR NON-AFRICAN AMERICAN > 60
--- NOTE | 2018-09-08 09:11 | CP.PCM.PN ---
Subjective - Date & Time of Evaluation Date of Evaluation: 09/08/18 Time of Evaluation: 09:09 - Subjective Subjective: General Surgery Pt seen and examined this AM. Doing well overall. He reports he is tolerating his clear liquid diet. He denies n/v and reports only minimal abdominal pain when someone presses hard into his RLQ. He has been frequent BMs. He reports having about 3 today and states they are becoming to look more normal to him. Afebrile Labs and vitals noted. EKG 09/07 noted: (-) afib PE Gen: Pt walking in room in NAD Skin: warm and dry Cardio: s1s2 RRR Lungs: CTA bilaterally Abd: soft NTND. Incisions c/d/i Extr: (-) calf tenderness bilaterally A/P POD 8 s/p lap appy with perforated appendicitis complicated by post-op inc isional hernia, POD3 s/p primary repair of hernia Will advance diet to solids Monitor tolerance Low K noted, discussed with pt foods high in K to consume Pt also made aware his frequent BMs are likely due to the fact for the days he didn't have any BMs and should improve with solid foods as well Pt likely will be well for D/C tomorrow from surgical standpoint if tolerates diet. Objective - Vital Signs/Intake and Output Vital Signs (last 24 hours): Temp Pulse Resp BP Pulse Ox 97.9 F 95 H 20 164/88 H 93 L 09/08/18 09:08 09/08/18 09:08 09/08/18 09:08 09/08/18 09:08 09/08/18 09:08 - Medications Medications: Current Medications Acetaminophen (Tylenol 650 Mg Supp) 650 mg [place] Q6 PRN PRN Reason: Fever >100.4 F Last Admin: 09/01/18 23:26 Dose: 650 mg Acetaminophen (Tylenol 650 Mg Supp) 650 mg MD ONCE PRN PRN Reason: Pain, Mild (1-3) Dextrose (Dextrose 50% Inj) 0 ml IV STAT PRN; Protocol PRN Reason: Hypoglycemia Protocol Dextrose (Glutose 15) 0 gm PO ONCE PRN; Protocol PRN Reason: Hypoglycemia Protocol Enoxaparin Sodium (Lovenox) 40 mg SC DAILY [facility]; Protocol Last Admin: 09/08/18 08:16 Dose: 40 mg Glucagon (Glucagen Diagnostic Kit) 0 mg IM STAT PRN; Protocol PRN Reason: Hypoglycemia Protocol Sodium Chloride (Sodium Chloride 0.9%) 1,000 mls @ 100 mls/hr IV .Q10H [facility] Last Admin: 09/08/18 08:17 Dose: 100 mls/hr Ciprofloxacin (Cipro 400mg/200ml Dsw) 400 mg in 200 mls @ 200 mls/hr IVPB Q12 [facility]; Protocol Last Admin: 09/08/18 08:16 Dose: 200 mls/hr Metronidazole (Flagyl 500mg/100ml Ns) 100 mls @ 100 mls/hr IVPB Q8 [facility]; Protocol Last Admin: 09/08/18 08:15 Dose: 100 mls/hr Insulin Human Regular (Humulin R) 0 units SC ACCU-CHECK [facility]; Protocol Last Admin: 09/08/18 06:17 Dose: Not Given Ketorolac Tromethamine (Toradol) 15 mg IVP Q6 PRN PRN Reason: Pain, moderate (4-7) Last Admin: 09/06/18 16:18 Dose: 15 mg Losartan Potassium (Cozaar) 100 mg PO DAILY [facility] Last Admin: 09/08/18 08:16 Dose: 100 mg Metoprolol Tartrate (Lopressor) 25 mg PO Q12 [facility] Last Admin: 09/08/18 08:16 Dose: 25 mg Morphine Sulfate (Morphine) 2 mg IVP Q4 PRN PRN Reason: Pain, severe (8-10) Ondansetron HCl (Zofran Inj) 4 mg IVP Q6 PRN PRN Reason: Nausea/Vomiting Pantoprazole Sodium (Protonix Inj) 40 mg IVP DAILY [facility] Last Admin: 09/08/18 08:16 Dose: 40 mg Sertraline HCl (Zoloft) 100 mg PO DAILY [facility] Last Admin: 09/08/18 08:16 Dose: 100 mg Simethicone (Mylicon Chew Tab) 80 mg PO Q8 [facility] Last Admin: 09/08/18 08:23 Dose: 80 mg - Labs Labs: 09/08/18 06:30 09/08/18 06:30 PT 16.2 Seconds (9.8-13.1) H 09/05/18 16:30 INR 1.4 09/05/18 16:30 APTT 27.9 Seconds (25.6-37.1) 09/05/18 16:30
--- NOTE | 2018-09-08 14:00 | CP.PCM.PN ---
Subjective - Date & Time of Evaluation Date of Evaluation: 09/08/18 Time of Evaluation: 09:30 - Subjective Subjective: Seen at bedside. Afebrile overnight. No white count. No acute distress. States urinating freely and multiple soft BM since Yesterday with no blood or mucus. Abd pain very improved. Denies vomiting or nausea. Tolerating PO liquid diet. Objective - Vital Signs/Intake and Output Vital Signs (last 24 hours): Temp Pulse Resp BP Pulse Ox 97.9 F 95 H 20 164/88 H 93 L 09/08/18 09:08 09/08/18 09:08 09/08/18 09:08 09/08/18 09:08 09/08/18 09:08 - Medications Medications: Current Medications Acetaminophen (Tylenol 650 Mg Supp) 650 mg MO Q6 PRN PRN Reason: Fever >100.4 F Last Admin: 09/01/18 23:26 Dose: 650 mg Acetaminophen (Tylenol 650 Mg Supp) 650 mg MO ONCE PRN PRN Reason: Pain, Mild (1-3) Dextrose (Dextrose 50% Inj) 0 ml IV STAT PRN; Protocol PRN Reason: Hypoglycemia Protocol Dextrose (Glutose 15) 0 gm PO ONCE PRN; Protocol PRN Reason: Hypoglycemia Protocol Enoxaparin Sodium (Lovenox) 40 mg SC DAILY [facility]; Protocol Last Admin: 09/08/18 08:16 Dose: 40 mg Glucagon (Glucagen Diagnostic Kit) 0 mg IM STAT PRN; Protocol PRN Reason: Hypoglycemia Protocol Ciprofloxacin (Cipro 400mg/200ml Dsw) 400 mg in 200 mls @ 200 mls/hr IVPB Q12 [facility]; Protocol Last Admin: 09/08/18 08:16 Dose: 200 mls/hr Metronidazole (Flagyl 500mg/100ml Ns) 100 mls @ 100 mls/hr IVPB Q8 [facility]; Protocol Last Admin: 09/08/18 08:15 Dose: 100 mls/hr Insulin Human Regular (Humulin R) 0 units SC ACCU-CHECK [facility]; Protocol Last Admin: 09/08/18 12:08 Dose: 1 unit Ketorolac Tromethamine (Toradol) 15 mg IVP Q6 PRN PRN Reason: Pain, moderate (4-7) Last Admin: 09/06/18 16:18 Dose: 15 mg Losartan Potassium (Cozaar) 100 mg PO DAILY [facility] Last Admin: 09/08/18 08:16 Dose: 100 mg Metoprolol Tartrate (Lopressor) 25 mg PO Q12 [facility] Last Admin: 09/08/18 08:16 Dose: 25 mg Morphine Sulfate (Morphine) 2 mg IVP Q4 PRN PRN Reason: Pain, severe (8-10) Ondansetron HCl (Zofran Inj) 4 mg IVP Q6 PRN PRN Reason: Nausea/Vomiting Pantoprazole Sodium (Protonix Inj) 40 mg IVP DAILY [facility] Last Admin: 09/08/18 08:16 Dose: 40 mg Sertraline HCl (Zoloft) 100 mg PO DAILY [facility] Last Admin: 09/08/18 08:16 Dose: 100 mg Simethicone (Mylicon Chew Tab) 80 mg PO Q8 [facility] Last Admin: 09/08/18 08:23 Dose: 80 mg - Labs Labs: 09/08/18 06:30 09/08/18 06:30 PT 16.2 Seconds (9.8-13.1) H 09/05/18 16:30 INR 1.4 09/05/18 16:30 APTT 27.9 Seconds (25.6-37.1) 09/05/18 16:30 - Constitutional Appears: Non-toxic, No Acute Distress - Eye Exam Eye Exam: EOMI, PERRL - ENT Exam ENT Exam: Mucous Membranes Moist - Respiratory Exam Respiratory Exam: Clear to Ausculation Bilateral, NORMAL BREATHING PATTERN. absent: Rales - Cardiovascular Exam Cardiovascular Exam: +S1, +S2. absent: Gallop - GI/Abdominal Exam GI & Abdominal Exam: Soft, Tenderness (Mild LLQ and RLQ. ), Normal Bowel Sounds. absent: Distended, Guarding, Rigid, Rebound - Extremities Exam Extremities Exam: Full ROM, Normal Capillary Refill. absent: Calf Tenderness, Pedal Edema - Neurological Exam Neurological Exam: Alert, Awake, Oriented x3 - Psychiatric Exam Psychiatric exam: Normal Affect, Normal Mood - Skin Skin Exam: Normal Color, Warm Assessment and Plan - Assessment and Plan (Free Text) Assessment: 72 y/o male with PMH HTn, dyslipidemia , DM type 2 presented with abdominal pain and fever and was diagnosed with acute appendicitis.Surgery was consulted and started on Cipro and Flagyl IV . s/p laparascopic appendectomy day 8 . Post op recovery complicated with post op ileus and posterior SBO secondary to surgical incision incarcerated hernia . At present post surgical incision hernia repair day 3, doing well NGT removed and started liquid diet 1. Acute appendicitis s/p laparascopic appendectomy # 8 doing well, afebrile on Cipro and Flagyl IV surgery following 2. Post op ileus/SBO with associated surgical incision incarcerated hernia s/p hernia repair day 3 Having BMs Tolerating liquid diet. Will advance to solid pain management Promote ambulation Anticipated DC later today or tomorrow AM if tolerates solids 3. Hypertension controlled on home meds losartan and metoprolol 4. DM type II Continue accuchecks and insulin coverage Metformin on hold Advance diet as tolerated 5.Hypokalemia replace with KCl Repeat BMP in AM 6. Dyslipidemnia on statin 7.Hx of Pulmonary Embolism (2012) Warfarin on hold for now 8.DVT prophylaxis SCD's Lovenox 40mg daily
[2018-09-09] MEDS: metroNIDAZOLE 500mg/100ml NS 100 ML IVPB SCH ×2 (00:06→08:18)
[2018-09-09] MEDS: Simethicone 80 mg Chewtab PO SCH ×2 (00:49→08:18)
[2018-09-09 06:33] LABS: MEAN CELL VOLUME 87.7 fl (80.0-94.0); MEAN CORPUSCULAR HEMOGLOBIN 29.5 pg (27.0-31.0); MEAN CORPUSCULAR HGB CONC 33.7 g/dL (33.0-37.0); RBC 4.4 Mil/uL (4.40-5.90); RED CELL DISTRIBUTION WIDTH 13.9 % (11.5-14.5); WHITE BLOOD COUNT 10.2 K/uL (4.8-10.8)
[2018-09-09] MEDS: Insulin Regular 100 units/ml SC SCH ×2 (06:41→11:55)
[2018-09-09 06:45] LABS: BLOOD UREA NITROGEN 8 mg/dl (9-20); GFR NON-AFRICAN AMERICAN > 60
--- NOTE | 2018-09-09 07:23 | CP.PCM.PN ---
Subjective - Date & Time of Evaluation Date of Evaluation: 09/09/18 Time of Evaluation: 07:21 - Subjective Subjective: General Surgery Progress Note for Dr. Glez 72M seen and evaluated at bedside this morning. No acute events overnight. No complaints this morning. Patient states he had a small, solid bowel movement. Passing flatus. Abdominal pain has improved. No difficulty with urination. Denies f/c, n/v/d, SOB, CP. Objective - Vital Signs/Intake and Output Vital Signs (last 24 hours): Temp Pulse Resp BP Pulse Ox 98.3 F 75 20 139/70 97 09/09/18 00:04 09/09/18 00:04 09/09/18 00:04 09/09/18 00:04 09/09/18 00:04 - Medications Medications: Current Medications Acetaminophen (Tylenol 650 Mg Supp) 650 mg [place] Q6 PRN PRN Reason: Fever >100.4 F Last Admin: 09/01/18 23:26 Dose: 650 mg Acetaminophen (Tylenol 650 Mg Supp) 650 mg [place] ONCE PRN PRN Reason: Pain, Mild (1-3) Dextrose (Dextrose 50% Inj) 0 ml IV STAT PRN; Protocol PRN Reason: Hypoglycemia Protocol Dextrose (Glutose 15) 0 gm PO ONCE PRN; Protocol PRN Reason: Hypoglycemia Protocol Enoxaparin Sodium (Lovenox) 40 mg SC DAILY [facility]; Protocol Last Admin: 09/08/18 08:16 Dose: 40 mg Glucagon (Glucagen Diagnostic Kit) 0 mg IM STAT PRN; Protocol PRN Reason: Hypoglycemia Protocol Ciprofloxacin (Cipro 400mg/200ml Dsw) 400 mg in 200 mls @ 200 mls/hr IVPB Q12 [facility]; Protocol Last Admin: 09/08/18 20:29 Dose: 200 mls/hr Metronidazole (Flagyl 500mg/100ml Ns) 100 mls @ 100 mls/hr IVPB Q8 [facility]; Protocol Last Admin: 09/09/18 00:06 Dose: 100 mls/hr Insulin Human Regular (Humulin R) 0 units SC ACCU-CHECK [facility]; Protocol Last Admin: 09/09/18 06:41 Dose: Not Given Ketorolac Tromethamine (Toradol) 15 mg IVP Q6 PRN PRN Reason: Pain, moderate (4-7) Last Admin: 09/06/18 16:18 Dose: 15 mg Losartan Potassium (Cozaar) 100 mg PO DAILY [facility] Last Admin: 09/08/18 08:16 Dose: 100 mg Metoprolol Tartrate (Lopressor) 25 mg PO Q12 [facility] Last Admin: 09/08/18 20:30 Dose: 25 mg Morphine Sulfate (Morphine) 2 mg IVP Q4 PRN PRN Reason: Pain, severe (8-10) Ondansetron HCl (Zofran Inj) 4 mg IVP Q6 PRN PRN Reason: Nausea/Vomiting Pantoprazole Sodium (Protonix Inj) 40 mg IVP DAILY [facility] Last Admin: 09/08/18 08:16 Dose: 40 mg Sertraline HCl (Zoloft) 100 mg PO DAILY [facility] Last Admin: 09/08/18 08:16 Dose: 100 mg Simethicone (Mylicon Chew Tab) 80 mg PO Q8 [facility] Last Admin: 09/09/18 00:49 Dose: 80 mg - Labs Labs: 09/09/18 05:30 09/09/18 05:30 PT 16.2 Seconds (9.8-13.1) H 09/05/18 16:30 INR 1.4 09/05/18 16:30 APTT 27.9 Seconds (25.6-37.1) 09/05/18 16:30 - Constitutional Appears: Well, Non-toxic, No Acute Distress - Head Exam Head Exam: ATRAUMATIC, NORMAL INSPECTION, NORMOCEPHALIC - Eye Exam Eye Exam: EOMI - ENT Exam ENT Exam: Mucous Membranes Moist - Respiratory Exam Respiratory Exam: NORMAL BREATHING PATTERN. absent: Respiratory Distress - Cardiovascular Exam Cardiovascular Exam: REGULAR RHYTHM. absent: Tachycardia - GI/Abdominal Exam GI & Abdominal Exam: Distended, Soft, Normal Bowel Sounds. absent: Tenderness Additional comments: incisions c/d/i shayla in place - Neurological Exam Neurological Exam: Alert, Awake - Psychiatric Exam Psychiatric exam: Normal Affect, Normal Mood - Skin Skin Exam: Dry, Intact, Normal Color, Warm Assessment and Plan - Assessment and Plan (Free Text) Assessment: 72M s/p laparoscopic appendectomy POD9 complicated by post-operative incisional hernia, s/p primary repair of hernia POD4 Plan: Monitor diet tolerance - patient tolerating regulars Encourage ambulation and IS use Antiemetics and analgesics as needed Cleared for discharge from a surgical standpoint Further recommendations per Dr. Newton Ochoa PGY1
[2018-09-09] MEDS: Enoxaparin 40 mg Syringe SC SCH (08:17)
[2018-09-09] MEDS: Ciprofloxacin 400mg/200ml D5W 400 MG/200 ML BAG IVPB SCH (08:18)
[2018-09-09 08:57] VITALS: BP 140/86; PULSE 82; TEMP 98; O2SAT 96
--- NOTE | 2018-09-09 09:02 | CP.PCM.PN ---
Subjective - Date & Time of Evaluation Date of Evaluation: 09/09/18 Time of Evaluation: 09:00 - Subjective Subjective: General Surgery Pt seen and examined this AM. He reports tolerating solid diet. He reports having minimal abdominal pain over incision sites otherwise feels well. He is having more solid BMs, (+) flatus. Afebrile. Labs and vitals noted. PE Gen: Pt sitting up in chair eating breakfast in NAD Skin: warm and dry Cardio: s1s2 RRR Lungs: CTA bilaterally Abd: Soft (+) mild distention, (+) mild tenderness at surgical sites. Incisions c/d/i. [place] intact. Extr: (-) calf tenderness bilaterally A.P POD 9 s/p lap appy with perforated appendicitis complicated by post-op incisional hernia, POD4 s/p primary repair of hernia Continue diet Cleared for d/c from surgical standpoint Pt to follow up with Dr. Glez in the office in 10-14 days. Contact information provided to pt. Objective - Vital Signs/Intake and Output Vital Signs (last 24 hours): Temp Pulse Resp BP Pulse Ox 98.0 F 82 20 140/86 96 09/09/18 08:56 09/09/18 08:56 09/09/18 08:56 09/09/18 08:56 09/09/18 08:56 - Medications Medications: Current Medications Acetaminophen (Tylenol 650 Mg Supp) 650 mg [place] Q6 PRN PRN Reason: Fever >100.4 F Last Admin: 09/01/18 23:26 Dose: 650 mg Acetaminophen (Tylenol 650 Mg Supp) 650 mg [place] ONCE PRN PRN Reason: Pain, Mild (1-3) Dextrose (Dextrose 50% Inj) 0 ml IV STAT PRN; Protocol PRN Reason: Hypoglycemia Protocol Dextrose (Glutose 15) 0 gm PO ONCE PRN; Protocol PRN Reason: Hypoglycemia Protocol Enoxaparin Sodium (Lovenox) 40 mg SC DAILY [facility]; Protocol Last Admin: 09/09/18 08:17 Dose: 40 mg Glucagon (Glucagen Diagnostic Kit) 0 mg IM STAT PRN; Protocol PRN Reason: Hypoglycemia Protocol Ciprofloxacin (Cipro 400mg/200ml Dsw) 400 mg in 200 mls @ 200 mls/hr IVPB Q12 [facility]; Protocol Last Admin: 09/09/18 08:18 Dose: 200 mls/hr Metronidazole (Flagyl 500mg/100ml Ns) 100 mls @ 100 mls/hr IVPB Q8 [facility]; Protocol Last Admin: 09/09/18 08:18 Dose: 100 mls/hr Insulin Human Regular (Humulin R) 0 units SC ACCU-CHECK [facility]; Protocol Last Admin: 09/09/18 06:41 Dose: Not Given Ketorolac Tromethamine (Toradol) 15 mg IVP Q6 PRN PRN Reason: Pain, moderate (4-7) Last Admin: 09/06/18 16:18 Dose: 15 mg Losartan Potassium (Cozaar) 100 mg PO DAILY [facility] Last Admin: 09/09/18 08:17 Dose: 100 mg Metoprolol Tartrate (Lopressor) 25 mg PO Q12 [facility] Last Admin: 09/09/18 08:17 Dose: 25 mg Morphine Sulfate (Morphine) 2 mg IVP Q4 PRN PRN Reason: Pain, severe (8-10) Ondansetron HCl (Zofran Inj) 4 mg IVP Q6 PRN PRN Reason: Nausea/Vomiting Pantoprazole Sodium (Protonix Inj) 40 mg IVP DAILY [facility] Last Admin: 09/09/18 08:17 Dose: 40 mg Sertraline HCl (Zoloft) 100 mg PO DAILY [facility] Last Admin: 09/09/18 08:17 Dose: 100 mg Simethicone (Mylicon Chew Tab) 80 mg PO Q8 [facility] Last Admin: 09/09/18 08:18 Dose: 80 mg - Labs Labs: 09/09/18 05:30 09/09/18 05:30 PT 16.2 Seconds (9.8-13.1) H 09/05/18 16:30 INR 1.4 09/05/18 16:30 APTT 27.9 Seconds (25.6-37.1) 09/05/18 16:30
--- NOTE | 2018-09-09 14:04 | CP.PCM.DIS ---
<Davis Morocho - Last Filed: 09/09/18 14:02> Provider - Provider Date of Admission: 08/30/18 14:18 Attending physician: Abdoul Ashford MD Primary care physician: Dr Abdoul Ashford Consults: 08/30/18 15:18 Surgical [General Surgery Consult] Stat Comment: Consulting Provider: Dayron Rodriguez Consulting Physician: Dayron Rodriguez Reason for Consult: Appendicitis Time Spent in preparation of Discharge (in minutes): 35 Diagnosis - Discharge Diagnosis (1) Acute appendicitis Status: Acute Comment: -s/p laparascopic appendectomy # 9. -s/p hernia repair day 3 (2) Anticoagulated on Coumadin Status: Acute Comment: -Coumadin stopped before surgery. 2x FFP and vitamin K administered. - Warfarin to be resumed upon discharge. Hospital Course - Lab Results Lab Results: Micro Results 08/30/18 14:50 Blood-Venous Blood Culture - Final NO GROWTH AFTER 5 DAYS 08/30/18 14:50 Blood-Venous Gram Stain - Final TEST NOT PERFORMED Most Recent Lab Values WBC 10.2 K/uL (4.8-10.8) 09/09/18 05:30 RBC 4.40 Mil/uL (4.40-5.90) 09/09/18 05:30 Hgb 13.0 g/dL (12.0-18.0) 09/09/18 05:30 Hct 38.6 % (35.0-51.0) 09/09/18 05:30 MCV 87.7 fl (80.0-94.0) 09/09/18 05:30 MCH 29.5 pg (27.0-31.0) 09/09/18 05:30 MCHC 33.7 g/dL (33.0-37.0) 09/09/18 05:30 RDW 13.9 % (11.5-14.5) 09/09/18 05:30 Plt Count 439 K/uL (130-400) H 09/09/18 05:30 MPV 7.7 fl (7.2-11.7) 09/06/18 05:50 Neut % (Auto) 79.0 % (50.0-75.0) H 09/06/18 05:50 Lymph % (Auto) 10.0 % (20.0-40.0) L 09/06/18 05:50 [place] % (Auto) 8.8 % (0.0-10.0) 09/06/18 05:50 Eos % (Auto) 1.9 % (0.0-4.0) 09/06/18 05:50 Baso % (Auto) 0.3 % (0.0-2.0) 09/06/18 05:50 Neut # (Auto) 7.0 K/uL (1.8-7.0) 09/06/18 05:50 Lymph # (Auto) 0.9 K/uL (1.0-4.3) L 09/06/18 05:50 Baxter # (Auto) 0.8 K/uL (0.0-0.8) 09/06/18 05:50 Eos # (Auto) 0.2 K/uL (0.0-0.7) 09/06/18 05:50 Baso # (Auto) 0.0 K/uL (0.0-0.2) 09/06/18 05:50 Neutrophils % (Manual) 81 % (42-75) H 08/31/18 05:35 Band Neutrophils % 2 % (0-2) 08/31/18 05:35 Lymphocytes % (Manual) 11 % (20-50) L 08/31/18 05:35 Monocytes % (Manual) 5 % (0-10) 08/31/18 05:35 Myelocytes % 1 % (0-0) H 08/31/18 05:35 Platelet Estimate Normal (NORMAL) 08/31/18 05:35 RBC Morphology Normal (NORMAL) 08/31/18 05:35 PT 16.2 Seconds (9.8-13.1) H 09/05/18 16:30 INR 1.4 09/05/18 16:30 APTT 27.9 Seconds (25.6-37.1) 09/05/18 16:30 Sodium 138 mmol/l (132-148) 09/09/18 05:30 Potassium 4.7 MMOL/L (3.6-5.0) 09/09/18 05:30 Chloride 106 mmol/L (98-107) 09/09/18 05:30 Carbon Dioxide 27 mmol/L (22-30) 09/09/18 05:30 Anion Gap 10 (10-20) 09/09/18 05:30 BUN 8 mg/dl (9-20) L 09/09/18 05:30 Creatinine 0.8 mg/dl (0.8-1.5) 09/09/18 05:30 Est GFR ( Amer) > 60 09/09/18 05:30 Est GFR (Non-Af Amer) > 60 09/09/18 05:30 POC Glucose (mg/dL) 176 mg/dL (65-110) H 09/09/18 11:37 Random Glucose 126 mg/dL (75-110) H 09/09/18 05:30 Calcium 8.0 mg/dL (8.4-10.2) L 09/09/18 05:30 Phosphorus 2.8 mg/dl (2.5-4.5) 09/08/18 06:30 Magnesium 2.0 MG/DL (1.6-2.3) 09/08/18 06:30 Total Bilirubin 0.6 mg/dl (0.2-1.3) 09/06/18 05:50 AST 29 U/L (17-59) 09/06/18 05:50 ALT 26 U/L (21-72) 09/06/18 05:50 Alkaline Phosphatase 57 U/L (38-126) 09/06/18 05:50 Total Protein 5.3 G/DL (6.3-8.2) L 09/06/18 05:50 Albumin 2.5 g/dL (3.5-5.0) L D 09/06/18 05:50 Globulin 2.7 gm/dL (2.2-3.9) 09/06/18 05:50 Albumin/Globulin Ratio 0.9 (1.0-2.1) L 09/06/18 05:50 Lipase 58 U/L (23-300) 08/30/18 12:31 Blood Type O POSITIVE 09/05/18 16:30 Antibody Screen Negative 09/05/18 16:30 Crossmatch See Detail 08/31/18 19:43 Crossmatch IS Only See Detail 08/31/18 19:43 BBK History Checked Patient has bt 09/05/18 16:30 - Hospital Course Hospital Course: 72 y/o male with PMH HTN, dyslipidemia , DM type 2 presented with abdominal pain and fever and was diagnosed with acute appendicitis. Surgery was consulted and started on Cipro and Flagyl IV. S/p laparascopic appendectomy day 9. Post op recovery complicated with post op ileus and posterior SBO secondary to surgical incision incarcerated hernia. At present post surgical incision hernia repair day 4, doing well. NGT removed and started liquid diet. Today, pt reported feeling well with NO nausea, passing gasses, normal soft bowel movements since last night. Pt stable, afebrile for 3 days, NO leukocytosis, tolerating PO regular diet, is dicharged home. Pt instructed to f/u with PCP and gen surgery team within 1-2 weeks. - Date & Time of H&P Date of H&P: 08/30/18 Time of H&P: 14:56 Discharge Exam - Head Exam Head Exam: ATRAUMATIC, NORMAL INSPECTION, NORMOCEPHALIC - Eye Exam Eye Exam: EOMI, Normal appearance - ENT Exam ENT Exam: Mucous Membranes Moist - Neck Exam Neck exam: Full Rom - Respiratory Exam Respiratory Exam: NORMAL BREATHING PATTERN. absent: Rales, Rhonchi, Wheezes - Cardiovascular Exam Cardiovascular Exam: +S1, +S2 - GI/Abdominal Exam GI & Abdominal Exam: Normal Bowel Sounds, Soft, Unremarkable. absent: Diminished Bowel Sounds, Distended, Guarding, Tenderness - Extremities Exam Extremities exam: full ROM - Neurological Exam Neurological exam: Alert, Oriented x3 Discharge Plan - Discharge Medications Prescriptions: Hydrocortisone 2.5% (Rectal) [Anusol-HC] 30 applic [place] BID #1 tube Ondansetron [Zofran] 4 mg PO Q8H #10 tab - Follow Up Plan Condition: GOOD Disposition: HOME/ ROUTINE Instructions: Appendectomy, Laparoscopic Surgery (DC) Additional Instructions: Please follow up with your surgeon, Dr. Glez, in 1-2 weeks. [place] will be removed at that time. Please resume regular diet. Activity as tolerated. No heavy lifting greater than 10 pounds for the next 4 weeks. Okay to shower. Avoid baths, pools, jacuzzis, or other large bodies of water for 2 weeks. If symptoms worsen, please return to the ED. hacer sandy con Dr. Newton mcqueen en 1-2 semanas-para quitar grapas. resumir dieta regular, actividad shiv tolerada. no levantar nada pesado mas de 10 libras por las proximas 4 semanas. se puede duchar, mauricio no banar, jimmie, umang por 2 semanas. regresar a suzie de emergencia si sintomas empeoran Referrals: [facility] [Outside] Dayron Rodriguez MD [Staff Provider] - Trace Glez MD [Medical Doctor] - Abdoul Ashford MD [Family Provider] - <Jillian Welsh - Last Filed: 09/09/18 16:24> Provider - Provider Date of Admission: 08/30/18 14:18 Attending physician: Abdoul Ashford MD Consults: 08/30/18 15:18 Surgical [General Surgery Consult] Stat Comment: Consulting Provider: Dayron Rodriguez Consulting Physician: Dayron Rodriguez Reason for Consult: Appendicitis Hospital Course - Lab Results Lab Results: Micro Results 08/30/18 14:50 Blood-Venous Blood Culture - Final NO GROWTH AFTER 5 DAYS 08/30/18 14:50 Blood-Venous Gram Stain - Final TEST NOT PERFORMED Most Recent Lab Values WBC 10.2 K/uL (4.8-10.8) 09/09/18 05:30 RBC 4.40 Mil/uL (4.40-5.90) 09/09/18 05:30 Hgb 13.0 g/dL (12.0-18.0) 09/09/18 05:30 Hct 38.6 % (35.0-51.0) 09/09/18 05:30 MCV 87.7 fl (80.0-94.0) 09/09/18 05:30 MCH 29.5 pg (27.0-31.0) 09/09/18 05:30 MCHC 33.7 g/dL (33.0-37.0) 09/09/18 05:30 RDW 13.9 % (11.5-14.5) 09/09/18 05:30 Plt Count 439 K/uL (130-400) H 09/09/18 05:30 MPV 7.7 fl (7.2-11.7) 09/06/18 05:50 Neut % (Auto) 79.0 % (50.0-75.0) H 09/06/18 05:50 Lymph % (Auto) 10.0 % (20.0-40.0) L 09/06/18 05:50 Baxter % (Auto) 8.8 % (0.0-10.0) 09/06/18 05:50 Eos % (Auto) 1.9 % (0.0-4.0) 09/06/18 05:50 Baso % (Auto) 0.3 % (0.0-2.0) 09/06/18 05:50 Neut # (Auto) 7.0 K/uL (1.8-7.0) 09/06/18 05:50 Lymph # (Auto) 0.9 K/uL (1.0-4.3) L 09/06/18 05:50 Baxter # (Auto) 0.8 K/uL (0.0-0.8) 09/06/18 05:50 Eos # (Auto) 0.2 K/uL (0.0-0.7) 09/06/18 05:50 Baso # (Auto) 0.0 K/uL (0.0-0.2) 09/06/18 05:50 Neutrophils % (Manual) 81 % (42-75) H 08/31/18 05:35 Band Neutrophils % 2 % (0-2) 08/31/18 05:35 Lymphocytes % (Manual) 11 % (20-50) L 08/31/18 05:35 Monocytes % (Manual) 5 % (0-10) 08/31/18 05:35 Myelocytes % 1 % (0-0) H 08/31/18 05:35 Platelet Estimate Normal (NORMAL) 08/31/18 05:35 RBC Morphology Normal (NORMAL) 08/31/18 05:35 PT 16.2 Seconds (9.8-13.1) H 09/05/18 16:30 INR 1.4 09/05/18 16:30 APTT 27.9 Seconds (25.6-37.1) 09/05/18 16:30 Sodium 138 mmol/l (132-148) 09/09/18 05:30 Potassium 4.7 MMOL/L (3.6-5.0) 09/09/18 05:30 Chloride 106 mmol/L (98-107) 09/09/18 05:30 Carbon Dioxide 27 mmol/L (22-30) 09/09/18 05:30 Anion Gap 10 (10-20) 09/09/18 05:30 BUN 8 mg/dl (9-20) L 09/09/18 05:30 Creatinine 0.8 mg/dl (0.8-1.5) 09/09/18 05:30 Est GFR ( Amer) > 60 09/09/18 05:30 Est GFR (Non-Af Amer) > 60 09/09/18 05:30 POC Glucose (mg/dL) 176 mg/dL (65-110) H 09/09/18 11:37 Random Glucose 126 mg/dL (75-110) H 09/09/18 05:30 Calcium 8.0 mg/dL (8.4-10.2) L 09/09/18 05:30 Phosphorus 2.8 mg/dl (2.5-4.5) 09/08/18 06:30 Magnesium 2.0 MG/DL (1.6-2.3) 09/08/18 06:30 Total Bilirubin 0.6 mg/dl (0.2-1.3) 09/06/18 05:50 AST 29 U/L (17-59) 09/06/18 05:50 ALT 26 U/L (21-72) 09/06/18 05:50 Alkaline Phosphatase 57 U/L (38-126) 09/06/18 05:50 Total Protein 5.3 G/DL (6.3-8.2) L 09/06/18 05:50 Albumin 2.5 g/dL (3.5-5.0) L D 09/06/18 05:50 Globulin 2.7 gm/dL (2.2-3.9) 09/06/18 05:50 Albumin/Globulin Ratio 0.9 (1.0-2.1) L 09/06/18 05:50 Lipase 58 U/L (23-300) 08/30/18 12:31 Blood Type O POSITIVE 09/05/18 16:30 Antibody Screen Negative 09/05/18 16:30 Crossmatch See Detail 08/31/18 19:43 Crossmatch IS Only See Detail 08/31/18 19:43 BBK History Checked Patient has bt 09/05/18 16:30 Attending/Attestation - Attestation I have personally seen and examined this patient.: Yes I have fully participated in the care of the patient.: Yes I have reviewed all pertinent clinical information, including history, physical exam and plan: Yes Notes (Text): 09/09/18 16:24 agree with findings and plan as above.
--- NOTE | 2018-09-18 11:30 | OP ---
PROCEDURE DATE: 09/05/2018 PREOPERATIVE DIAGNOSIS: Incarcerated incisional hernia. POSTOPERATIVE DIAGNOSIS: Incarcerated incisional hernia. SURGEON: Trace Glez MD [employer] NURSE: Dayron Rodriguez MD and Anand Gann DO. ANESTHESIA: General. FINDINGS: The patient had incarcerated small bowel to left lower quadrant incision at previous trocar site. T he small bowel was viable COMPLICATIONS: None. ESTIMATED BLOOD LOSS: 5 mL. INDICATION FOR PROCEDURE: This is a 72-year-old male who underwent a successful laparoscopic appendectomy. H Postoperatively, the patient was doing well up until postoperative day 3 and 4, and when he started complaining of abdominal distention. CAT scan was done with findings of incarcerated small bowel at left lower quadrant likely at the site of previous trochar site. He was explained the need for operative intervention. The patient was explained the risks and benefits of procedure, not limited to the bleeding, infection, possible bowel resection. The patient agreed to procedure, and consent was obtained. DESCRIPTION OF PROCEDURE: On date of procedure, the patient was brought to the operating room and place in supine position. Bilateral sequential devices were placed to bilateral lower extremities. The patient was placed under general endotracheal anesthesia. Pt was already on antibiotics, no further prophylactic antibiotics were given. The patient was prepped and draped in usual sterile fashion. After an adequate timeout, the previous left lower quadrant incision was opened sharply. The subcutaneous tissue was also divided with combination of sharp and blunt dissection. At this point, we were able to identify the previous Vicryl sutures used to re-approximate the fascia and . These sutures were cut and removed. We furthered examined the fascial defect and were able to identify a small loop of incarcerated small bowel. The small bowel was then circumferentially freed from this fascial defect. Once the small bowel was fully freed circumferentially, it was examined. The bowel was noted to be viable and non-necrotic. At this point, small bowel was returned to the abdomen. The defect was about 3 cm in length. We then proceeded to use 1-0 Prolene sutures in [id number] fashion to reapproximate the fascia. Once the fascia was reapproximated, we further explored if there were any fascial defects and none were identified. At this point, we were satisfied with the closure of the fascial defect. We then proceeded to reapproximate the skin with shalya. The patient tolerated the procedure well. He was extubated, brought to Recovery in stable condition. Of note, at the end of the procedure, the count of sponges, needles, and all instruments were adequate. Trace Glez MD MTD[place]
== END 2018-09-09 14:12 | disposition home or self-care (01) | DRG 339 ==
LOC: H.ER 10:55 → H.ERHOLD 14:18 → H.MEDSURG1 16:25
PROVIDERS: ADMIT Family Medicine; ATTEND Family Medicine
PROC: 30233K1 Transfusion of Nonautologous Frozen Plasma into Peripheral Vein, Percutaneous Approach (ICD-10-PCS; 2018-08-31)
PROC: 0DTJ4ZZ Resection of Appendix, Percutaneous Endoscopic Approach (ICD-10-PCS; principal; 2018-08-31 20:00)
PROC: 0WQF0ZZ Repair Abdominal Wall, Open Approach (ICD-10-PCS; 2018-09-05)
DX: K35.32 Acute appendicitis with perforation, localized peritonitis, and gangrene, without abscess (principal); K56.7 Ileus, unspecified; K43.0 Incisional hernia with obstruction, without gangrene; K91.89 Other postprocedural complications and disorders of digestive system; E78.5 Hyperlipidemia, unspecified; Z96.642 Presence of left artificial hip joint; Z86.711 Personal history of pulmonary embolism; Z79.01 Long term (current) use of anticoagulants; Z87.891 Personal history of nicotine dependence; I10 Essential (primary) hypertension; E11.9 Type 2 diabetes mellitus without complications; Z88.0 Allergy status to penicillin; F32.9 Major depressive disorder, single episode, unspecified; E78.00 Pure hypercholesterolemia, unspecified; R33.9 Retention of urine, unspecified; R09.02 Hypoxemia; E87.6 Hypokalemia; K38.1 Appendicular concretions; Z79.84 Long term (current) use of oral hypoglycemic drugs; I25.10 Atherosclerotic heart disease of native coronary artery without angina pectoris; Z98.42 Cataract extraction status, left eye; M19.90 Unspecified osteoarthritis, unspecified site; Z79.899 Other long term (current) drug therapy

== ENCOUNTER 2018-09-23 13:26 | Inpatient (IN) | payer MEDICARE ==
[2018-09-23 13:26] VITALS: BMI 24.0
[2018-09-23] MEDS ORDERED: Iohexol 240 (50 ml) PO ONE (13:53)
[2018-09-23 14:33] LABS: EOS # 0.2 K/uL (0.0-0.7); EOS % 2.5 % (0.0-4.0); HEMOGLOBIN 12.9 g/dL (12.0-18.0); LYMPH # 2.8 K/uL (1.0-4.3); LYMPH % 44.1 % (20.0-40.0); MEAN CELL VOLUME 86.3 fl (80.0-94.0); MEAN CORPUSCULAR HEMOGLOBIN 29.4 pg (27.0-31.0); MEAN CORPUSCULAR HGB CONC 34.1 g/dL (33.0-37.0); MEAN PLATELET VOLUME 7.9 fl (7.2-11.7); MONO # 0.7 K/uL (0.0-0.8); MONO % 11.3 % (0.0-10.0); NEUT # 2.7 K/uL (1.8-7.0); NEUT % 42.1 % (50.0-75.0); RBC 4.38 Mil/uL (4.40-5.90); RED CELL DISTRIBUTION WIDTH 14.2 % (11.5-14.5); WHITE BLOOD COUNT 6.4 K/uL (4.8-10.8)
[2018-09-23] MEDS ORDERED: Iohexol 240 (50 ml) ONE (14:45)
[2018-09-23 14:53] LABS: ALB/GLOB RATIO 1.1 (1.0-2.1); ALT/SGPT 51 U/L (21-72); AST/SGOT 29 U/L (17-59); BLOOD UREA NITROGEN 18 mg/dl (9-20); GFR NON-AFRICAN AMERICAN > 60
[2018-09-23 14:57] LABS: SQUAMOUS EPITHIAL 1 /hpf (0-5); URINE BILIRUBIN NEGATIVE (NEGATIVE); URINE BLOOD NEGATIVE (NEGATIVE); URINE CLARITY CLEAR (Clear); URINE COLOR YELLOW (YELLOW); URINE GLUCOSE (UA) NEG (NEGATIVE); URINE LEUKOCYTE ESTERASE NEG Leu/uL (Negative); URINE PROTEIN NEGATIVE (NEGATIVE); URINE UROBILINOGEN 0.2-1.0 mg/dL (0.2-1.0)
--- NOTE | 2018-09-23 15:12 | CP.PCM.CON ---
History of Present Illness - History of Present Illness History of Present Illness: SURGERY NOTE Reason: s/p appendectomy, SBO 2/2 incision hernia repair 72M presents with abdominal pain. Patient states pain started before the weekend and was in the right lower quadrant. He states it does not radiate anywhere. He denies nausea or vomiting, and states he has been tolerating diet. He had one episode of diarrhea last . Patient denies fevers or chills. He states he called the office over the weekend and was told to go to ED and he denies to come today for evaluation. Patient had a lap appendectomy 08/31/18, and went back to OR on 09/05/18 for SBO secondary to LLQ incisional hernia. PMH: DM, HTN, PE on coumadin PSH: Right inguinal hernia repair, left hip surgery, prostate surgery, lap appendectomy, Primary repair of incisional hernia FH: Noncontributory SH: Quit tobacco 36 years ago, social drinker, denies drugs ALL: PCNs Meds: See MAR Past Patient History - Infectious Disease Hx of Infectious Diseases: None - Past Medical History & Family History Past Medical History?: Yes - Past Social History Smoking Status: Former Smoker - CARDIAC Hx Hypercholesterolemia: Yes Hx Hypertension: Yes - PULMONARY Hx Pulmonary Embolism: Yes (2012) - NEUROLOGICAL Hx Neurological Disorder: No - HEENT Hx HEENT Problems: Yes - RENAL Hx Chronic Kidney Disease: No - ENDOCRINE/METABOLIC Hx Endocrine Disorders: Yes - HEMATOLOGICAL/ONCOLOGICAL Hx Human Immunodeficiency Virus (HIV): No - INTEGUMENTARY Hx Dermatological Problems: No - MUSCULOSKELETAL/RHEUMATOLOGICAL Hx Falls: Yes - GASTROINTESTINAL Hx Gastrointestinal Disorders: No - GENITOURINARY/GYNECOLOGICAL Hx Genitourinary Disorders: Yes - PSYCHIATRIC Hx Psychophysiologic Disorder: No Hx Substance Use: No - SURGICAL HISTORY Hx Tonsillectomy: Yes - ANESTHESIA Hx Anesthesia: Yes Hx Anesthesia Reactions: No Hx Malignant Hyperthermia: No Meds Allergies/Adverse Reactions: Allergies Allergy/AdvReac Type Severity Reaction Status Date / Time Penicillins Allergy RASH Verified 04/18/18 22:17 Physical Exam - Constitutional Appears: Non-toxic, No Acute Distress - Eye Exam Eye Exam: EOMI, PERRL - Respiratory Exam Respiratory Exam: Clear to Auscultation Bilateral, NORMAL BREATHING PATTERN - Cardiovascular Exam Cardiovascular Exam: REGULAR RHYTHM, +S1, +S2 - GI/Abdominal Exam GI & Abdominal Exam: Soft, Tenderness (RLQ mild-moderately tender). absent: Distended, Firm, Guarding, Rigid - Extremities Exam Extremities exam: Negative for: pedal edema, tenderness - Neurological Exam Neurological exam: Alert, Oriented x3 - Skin Skin Exam: Dry, Intact, Normal Color, Warm Results - Vital Signs Recent Vital Signs: Last Vital Signs Temp 97.9 F 09/23/18 13:34 Pulse 74 09/23/18 13:34 Resp 18 09/23/18 13:34 BP 132/98 H 09/23/18 13:34 Pulse Ox 99 09/23/18 13:34 - Labs Result Diagrams: 09/23/18 14:24 09/23/18 14:24 Labs: Laboratory Results - last 24 hr 09/23/18 09/23/18 09/23/18 14:24 14:24 14:46 WBC 6.4 RBC 4.38 L Hgb 12.9 Hct 37.8 MCV 86.3 MCH 29.4 MCHC 34.1 RDW 14.2 Plt Count 258 D MPV 7.9 Neut % (Auto) 42.1 L Lymph % (Auto) 44.1 H [place] % (Auto) 11.3 H Eos % (Auto) 2.5 Baso % (Auto) 0.0 Neut # (Auto) 2.7 Lymph # (Auto) 2.8 [place] # (Auto) 0.7 Eos # (Auto) 0.2 Baso # (Auto) 0.0 Sodium 137 Potassium 4.0 Chloride 104 Carbon Dioxide 26 Anion Gap 11 BUN 18 Creatinine 0.7 L Est GFR ( Amer) > 60 Est GFR (Non-Af Amer) > 60 Random Glucose 103 Calcium 9.0 Total Bilirubin 0.4 AST 29 ALT 51 Alkaline Phosphatase 109 Total Protein 7.4 Albumin 4.0 Globulin 3.5 Albumin/Globulin Ratio 1.1 Urine Color Yellow Urine Clarity Clear Urine pH 7.0 Ur Specific Elsie 1.009 Urine Protein Negative Urine Glucose (UA) Neg Urine Ketones Negative Urine Blood Negative Urine Nitrate Negative Urine Bilirubin Negative Urine Urobilinogen 0.2-1.0 Ur Leukocyte Esterase Neg Urine RBC (Auto) 2 Urine Microscopic WBC 1 Ur Squamous Epith Cells 1 Assessment & Plan - Assessment and Plan (Free Text) Assessment: 72M with abdominal pain. S/P Laparoscopic appendectomy POD#23, Incisional hernia repair POD#18 Plan: - IVF - Pain control - CMP/CBC - Abd CT scan Patient seen and examined with Dr. Jennifer Granados, PGY3
--- NOTE | 2018-09-23 16:29 | ED PDOC ---
HPI: Abdomen Time Seen by Provider: 09/23/18 13:52 Chief Complaint (Nursing): Abdominal Pain Chief Complaint (Provider): abdominal pain, diarrhea History Per: Director Of Sales Marketing ([id number] [phone]) Onset/Duration Of Symptoms: Days (3), Gradual Severity: Moderate Location Of Pain/Discomfort: RLQ, LLQ Quality Of Discomfort: Dull, Cramping Associated Symptoms: Diarrhea, Loss Of Appetite. denies: Fever, Chills, Nausea, Vomiting Exacerbating Factors: None Alleviating Factors: None Additional Complaint(s): 72yo male c/o abdominal pain mostly lower abdomen associated w diarrhea. Had lap appendectomy about 2.5 weeks ago with followup incisional hernia repair. Denies fever, vomiting or loss appetite. Past Medical History Reviewed: Historical Data, Nursing Documentation, Vital Signs Vital Signs: Last Vital Signs Temp 97.9 F 09/23/18 13:34 Pulse 74 09/23/18 13:34 Resp 18 09/23/18 13:34 BP 132/98 H 09/23/18 13:34 Pulse Ox 99 09/23/18 13:34 - Medical History PMH: Arthritis, CAD, Diabetes, HTN, Hypercholesterolemia, Pulmonary Embolism (2012) Denies: HIV, Chronic Kidney Disease - Surgical History Surgical History: Hernia Repair, Tonsillectomy - Family History Family History: States: Unknown Family Hx - Home Medications Home Medications: Ambulatory Orders Medication Instructions Recorded Atorvastatin [Lipitor] 80 mg PO HS 08/30/18 Gabapentin [Neurontin] 300 mg PO HS 08/30/18 Losartan [Cozaar] 100 mg PO DAILY 08/30/18 Metoprolol Tartrate [Lopressor] 25 mg PO Q12 08/30/18 Nabumetone [Relafen] 750 mg PO Q12 PRN 08/30/18 Sertraline [Zoloft] 100 mg PO DAILY 08/30/18 Warfarin [Coumadin] 3 mg PO QPM 08/30/18 metFORMIN [glucOPHAGE] 500 mg PO DAILY 08/30/18 Hydrocortisone 2.5% (Rectal) 1 applic [place] BID 09/23/18 [Anusol-HC] Ondansetron [Zofran] 4 mg PO Q8H PRN 09/23/18 - Allergies Allergies/Adverse Reactions: Allergies Allergy/AdvReac Type Severity Reaction Status Date / Time Penicillins Allergy RASH Verified 04/18/18 22:17 Review of Systems ROS Statement: Except As Marked, All Systems Reviewed And Found Negative Constitutional: Negative for: Fever Gastrointestinal: Positive for: Abdominal Pain, Diarrhea. Negative for: Vomiting Genitourinary Male: Negative for: Dysuria Musculoskeletal: Negative for: Neck Pain Skin: Negative for: Rash, Lesions Neurological: Negative for: Weakness, Numbness Psych: Negative for: Anxiety Physical Exam - Reviewed Nursing Documentation Reviewed: Yes Vital Signs Reviewed: Yes - Physical Exam Appears: Positive for: Well, Non-toxic, No Acute Distress Head Exam: Positive for: ATRAUMATIC, NORMAL INSPECTION, NORMOCEPHALIC Skin: Positive for: Normal Color, Warm, DRY Eye Exam: Positive for: EOMI, Normal appearance, PERRL ENT: Positive for: Normal ENT Inspection Neck: Positive for: Normal, Painless ROM Cardiovascular/Chest: Positive for: Regular Rate, Rhythm Respiratory: Positive for: CNT, Normal Breath Sounds Gastrointestinal/Abdominal: Positive for: Soft, Tenderness (RLQ) Back: Positive for: Normal Inspection Extremity: Positive for: Normal ROM Neurologic/Psych: Positive for: Alert, Oriented - Laboratory Results Result Diagrams: 09/23/18 14:24 09/23/18 14:24 Lab Results: Total Bilirubin 0.4 mg/dl (0.2-1.3) 09/23/18 14:24 AST 29 U/L (17-59) 09/23/18 14:24 ALT 51 U/L (21-72) 09/23/18 14:24 Alkaline Phosphatase 109 U/L (38-126) 09/23/18 14:24 Total Protein 7.4 G/DL (6.3-8.2) 09/23/18 14:24 Albumin 4.0 g/dL (3.5-5.0) 09/23/18 14:24 Globulin 3.5 gm/dL (2.2-3.9) 09/23/18 14:24 Albumin/Globulin Ratio 1.1 (1.0-2.1) 09/23/18 14:24 Urine Color Yellow (YELLOW) 09/23/18 14:46 Urine Clarity Clear (Clear) 09/23/18 14:46 Urine pH 7.0 (5.0-8.0) 09/23/18 14:46 Ur Specific [place] 1.009 (1.003-1.030) 09/23/18 14:46 Urine Protein Negative mg/dL (NEGATIVE) 09/23/18 14:46 Urine Glucose (UA) Neg mg/dL (NEGATIVE) 09/23/18 14:46 Urine Ketones Negative mg/dL (NEGATIVE) 09/23/18 14:46 Urine Blood Negative (NEGATIVE) 09/23/18 14:46 Urine Nitrate Negative (NEGATIVE) 09/23/18 14:46 Urine Bilirubin Negative (NEGATIVE) 09/23/18 14:46 Urine Urobilinogen 0.2-1.0 mg/dL (0.2-1.0) 09/23/18 14:46 Ur Leukocyte Esterase Neg [place]/uL (Negative) 09/23/18 14:46 Urine RBC (Auto) 2 /hpf (0-3) 09/23/18 14:46 Urine Microscopic WBC 1 /hpf (0-5) 09/23/18 14:46 Ur Squamous Epith Cells 1 /hpf (0-5) 09/23/18 14:46 - ECG O2 Sat by Pulse Oximetry: 99 Medical Decision Making Medical Decision Making: labs unremarkable Surgery evaluated patient in ED, agreed w CT imaging Accession No. : [id number] Patient Name / ID : HÉCTOR FORRESTER / [id number] Exam Date : 09/23/2018 16:55:35 ( Approved ) Study Comment : Sex / Age : M / 72Y Creator : Eloisa Wood MD Dictator : Eloisa Wood MD Mosaic Floor Layer : Software Clerk : Eloisa Wood MD Approver2 : Report Date : 09/23/2018 18:06:45 My Comment : Date of service: 09/23/2018 PROCEDURE: CT Abdomen and Pelvis with contrast HISTORY: recent appy, new pain COMPARISON: 09/05/2018. TECHNIQUE: CT scan of the abdomen and pelvis was performed after administration of intravenous contrast. Oral contrast was administered. Coronal and sagittal reformatted images were obtained. Contrast dose: 95 mL Omnipaque 300 Radiation dose: Total exam DLP = 440.79 mGy-cm. This CT exam was performed using one or more of the following dose reduction techniques: Automated exposure control, adjustment of the mA and/or kV according to patient size, and/or use of iterative reconstruction technique. FINDINGS: LOWER THORAX: There is dependent atelectasis in the lung bases. LIVER: Normal in size with homogeneous enhancement. No gross lesion or ductal dilatation. GALLBLADDER AND BILE DUCTS: Well distended. No calcified gallstones, wall thickening or pericholecystic fluid. PANCREAS: Normal in size with homogeneous enhancement. No gross lesion or ductal dilatation. SPLEEN: Normal in size and appearance. ADRENALS: No discrete nodule. KIDNEYS AND URETERS: Normal in size with homogeneous enhancement. No hydronephrosis. Again seen are simple cysts in the upper pole of the left kidney, the largest measures 8.9 x 6.6 cm. VASCULATURE: No aortic aneurysm. There are aortic atherosclerotic calcifications or mural plaque present. An infrarenal IVC filter remains in place. BOWEL: There is interval resolution of acute small bowel obstruction. The small bowel loops are normal in caliber. The colon is grossly normal in appearance. No bowel wall thickening or obstruction. APPENDIX: Status post appendectomy, there is a 2.2 x 1.8 cm low-attenuation collection with apparent rim enhancement in the right lower quadrant lateral to the suture. PERITONEUM: No free fluid. No free air. LYMPH NODES: No enlarged lymph nodes. BLADDER: Well distended and normal in appearance. REPRODUCTIVE: The uterus is normal in size. BONES: No acute fracture. Stable. OTHER FINDINGS: The left lower quadrant lateral wall spigelian hernia has been repaired. IMPRESSION: Status post appendectomy, apparent 2.2 x 1.8 cm fluid collection with apparent rim enhancement lateral to the suture could represent postoperative fluid collection however developing phlegmon/abscess is also a consideration. Clinical correlation and follow-up is advised. Interval resolution of distal small bowel obstruction and interval repair of left spigelian hernia. Disposition - Clinical Impression Clinical Impression: Post-operative wound abscess - Disposition Forms: Linebacker (Romanian)
[2018-09-23] MEDS ORDERED: Sodium Chloride 0.9% 50 ML IV ONE (16:38)
[2018-09-23] MEDS ORDERED: Iohexol 300 100 ML IJ ONE (16:38)
--- NOTE | 2018-09-23 18:10 | CT ---
Date of service: 09/23/2018 PROCEDURE: CT Abdomen and Pelvis with contrast HISTORY: recent appy, new pain COMPARISON: 09/05/2018. TECHNIQUE: CT scan of the abdomen and pelvis was performed after administration of intravenous contrast. Oral contrast was administered. Coronal and sagittal reformatted images were obtained. Contrast dose: 95 mL Omnipaque 300 Radiation dose: Total exam DLP = 440.79 mGy-cm. This CT exam was performed using one or more of the following dose reduction techniques: Automated exposure control, adjustment of the mA and/or kV according to patient size, and/or use of iterative reconstruction technique. FINDINGS: LOWER THORAX: There is dependent atelectasis in the lung bases. LIVER: Normal in size with homogeneous enhancement. No gross lesion or ductal dilatation. GALLBLADDER AND BILE DUCTS: Well distended. No calcified gallstones, wall thickening or pericholecystic fluid. PANCREAS: Normal in size with homogeneous enhancement. No gross lesion or ductal dilatation. SPLEEN: Normal in size and appearance. ADRENALS: No discrete nodule. KIDNEYS AND URETERS: Normal in size with homogeneous enhancement. No hydronephrosis. Again seen are simple cysts in the upper pole of the left kidney, the largest measures 8.9 x 6.6 cm. VASCULATURE: No aortic aneurysm. There are aortic atherosclerotic calcifications or mural plaque present. An infrarenal IVC filter remains in place. BOWEL: There is interval resolution of acute small bowel obstruction. The small bowel loops are normal in caliber. The colon is grossly normal in appearance. No bowel wall thickening or obstruction. APPENDIX: Status post appendectomy, there is a 2.2 x 1.8 cm low-attenuation collection with apparent rim enhancement in the right lower quadrant lateral to the suture. PERITONEUM: No free fluid. No free air. LYMPH NODES: No enlarged lymph nodes. BLADDER: Well distended and normal in appearance. REPRODUCTIVE: The uterus is normal in size. BONES: No acute fracture. Stable. OTHER FINDINGS: The left lower quadrant lateral wall spigelian hernia has been repaired. IMPRESSION: Status post appendectomy, apparent 2.2 x 1.8 cm fluid collection with apparent rim enhancement lateral to the suture could represent postoperative fluid collection however developing phlegmon/abscess is also a consideration. Clinical correlation and follow-up is advised. Interval resolution of distal small bowel obstruction and interval repair of left spigelian hernia.
[2018-09-23] MEDS ORDERED: metroNIDAZOLE 500mg/100ml NS 100 ML IVPB STA (19:32)
[2018-09-23] MEDS ORDERED: Ciprofloxacin 400mg/200ml D5W 400 MG/200 ML BAG IVPB STA (19:32)
[2018-09-23] MEDS ORDERED: Ciprofloxacin 400mg/200ml D5W 400 MG/200 ML BAG IVPB ONE (19:51)
[2018-09-23] MEDS ORDERED: DiphenhydrAMINE 50 mg/ml Inj IVP STA (20:36)
[2018-09-23] MEDS ORDERED: Morphine 4 MG/ML VIAL IVP PRN (21:26)
--- NOTE | 2018-09-23 22:13 | CP.PCM.HP ---
History of Present Illness - History of Present Illness History of Present Illness: 72 y/o M with pmhx of HTN, HLD, DM2 and PE (2012), reptured SHAYLA page presented to ER with lower abdominal pruritis and RLQ pain. Pain is dull, rated 3/10, worse with exertion, alleviated with tylenol. Pt denies N/V, fever or chills. He ambulates without difficulty. Of note: 1 month history of perforated appendicitis and hernia repair at site of incision. Pt was concerned of complications from procedures so he arrived to the ED for further workup PMD: Dr Ashford PSHx: Total L hip replacement, B/L cataract removal, R inguinal hernia repair, and TURP FamHx: none SHx: Pt quit smoking 36 years ago, used to smokes 3 ppd, ocassional alcohol (1x every 1-2 months), no recreational drugs. Meds: reconciled Allergies: PCN Present on Admission - Present on Admission Any Indicators Present on Admission: Yes History of DVT/PE: Yes History of Uncontrolled Diabetes: Yes Urinary Catheter: No Review of Systems - Cardiovascular Cardiovascular: absent: Chest Pain, Chest Pain at Rest - Respiratory Respiratory: absent: Cough, Dyspnea - Gastrointestinal Gastrointestinal: Abdominal Pain (RLQ). absent: Constipation, Diarrhea, Nausea, Vomiting - Neurological Neurological: absent: Abnormal Gait Past Patient History - Infectious Disease Hx of Infectious Diseases: None - Past Medical History & Family History Past Medical History?: Yes - Past Social History Smoking Status: Former Smoker Alcohol: None Drugs: Denies Home Situation {Lives}: With Family - CARDIAC Hx Cardiac Disorders: Yes (CAD, hypercholesterolemia, HTN) Hx Hypertension: Yes - PULMONARY Hx Respiratory Disorders: Yes (PE) Hx Pulmonary Embolism: Yes - NEUROLOGICAL Hx Neurological Disorder: No - HEENT Hx HEENT Problems: Yes (cataracts) - RENAL Hx Chronic Kidney Disease: No - ENDOCRINE/METABOLIC Hx Endocrine Disorders: Yes (DM) Hx Diabetes Mellitus Type 2: Yes - HEMATOLOGICAL/ONCOLOGICAL Hx Blood Disorders: No - INTEGUMENTARY Hx Dermatological Problems: No - MUSCULOSKELETAL/RHEUMATOLOGICAL Hx Musculoskeletal Disorders: Yes (arthritis) - GASTROINTESTINAL Hx Gastrointestinal Disorders: No - GENITOURINARY/GYNECOLOGICAL Hx Genitourinary Disorders: Yes (prostate) - PSYCHIATRIC Hx Psychophysiologic Disorder: No - SURGICAL HISTORY Hx Tonsillectomy: Yes - ANESTHESIA Hx Anesthesia: Yes Hx Anesthesia Reactions: No Hx Malignant Hyperthermia: No Meds Allergies/Adverse Reactions: Allergies Allergy/AdvReac Type Severity Reaction Status Date / Time Penicillins Allergy RASH Verified 04/18/18 22:17 Physical Exam - Constitutional Appears: No Acute Distress - Eye Exam Eye Exam: EOMI - ENT Exam ENT Exam: Mucous Membranes Moist - Respiratory Exam Respiratory Exam: Clear to Auscultation Bilateral, NORMAL BREATHING PATTERN. absent: Wheezes - Cardiovascular Exam Cardiovascular Exam: REGULAR RHYTHM, +S1, +S2 - GI/Abdominal Exam GI & Abdominal Exam: Normal Bowel Sounds, Soft, Tenderness (RLQ) - Neurological Exam Neurological exam: Alert, CN II-XII Intact, Oriented x3 - Psychiatric Exam Psychiatric exam: Normal Affect, Normal Mood Results - Vital Signs Recent Vital Signs: Last Vital Signs Temp 98.1 F 09/23/18 20:23 Pulse 66 09/23/18 20:23 Resp 18 09/23/18 20:23 BP 154/82 H 09/23/18 20:23 Pulse Ox 99 09/23/18 19:19 - Labs Result Diagrams: 09/23/18 14:24 09/23/18 14:24 Labs: Laboratory Results - last 24 hr 09/23/18 09/23/18 09/23/18 14:24 14:24 14:46 WBC 6.4 RBC 4.38 L Hgb 12.9 Hct 37.8 MCV 86.3 MCH 29.4 MCHC 34.1 RDW 14.2 Plt Count 258 D MPV 7.9 Neut % (Auto) 42.1 L Lymph % (Auto) 44.1 H [place] % (Auto) 11.3 H Eos % (Auto) 2.5 Baso % (Auto) 0.0 Neut # (Auto) 2.7 Lymph # (Auto) 2.8 [place] # (Auto) 0.7 Eos # (Auto) 0.2 Baso # (Auto) 0.0 Sodium 137 Potassium 4.0 Chloride 104 Carbon Dioxide 26 Anion Gap 11 BUN 18 Creatinine 0.7 L Est GFR ( Amer) > 60 Est GFR (Non-Af Amer) > 60 Random Glucose 103 Calcium 9.0 Total Bilirubin 0.4 AST 29 ALT 51 Alkaline Phosphatase 109 Total Protein 7.4 Albumin 4.0 Globulin 3.5 Albumin/Globulin Ratio 1.1 Urine Color Yellow Urine Clarity Clear Urine pH 7.0 Ur Specific [place] 1.009 Urine Protein Negative Urine Glucose (UA) Neg Urine Ketones Negative Urine Blood Negative Urine Nitrate Negative Urine Bilirubin Negative Urine Urobilinogen 0.2-1.0 Ur Leukocyte Esterase Neg Urine RBC (Auto) 2 Urine Microscopic WBC 1 Ur Squamous Epith Cells 1 Assessment & Plan - Assessment and Plan (Free Text) Assessment: 72 y/o M with pmhx of HTN, HLD, DM2 and PE (2012) admitted for RLQ abcess. Plan: CT Abdo: Status post appendectomy, apparent 2.2 x 1.8 cm fluid collection with apparent rim enhancement lateral to the suture could represent postoperative fluid collection however developing phlegmon/abscess is also a consideration. Clinical correlation and follow-up is advised. Interval resolution of distal small bowel obstruction and interval repair of left spigelian hernia. Abdominal abscess RLQ NPO for possible IR procedure IVF: LR at 125mL/hr. General Surgery consulted: Dr. Glez; possible IR in AM; recs appreciated. CT ordered for IR drain ID consulted: Dr. Villanueva; additional recs appreciated. d/w IV Ciprofloxacin and Metronidazole Morphine PRN for severe pain Warfarin held: INR 1.7 monitor for abdo pain f/u am labs HTN c/w home meds monifor vitals DM Controlled Metformin held hba1c 6.1 on 02/16/18 accuchecks ISS Hypoglycemia protocol Dyslipidemia Atorvastatin to resume tomorrow LFTs reviewed: wnl; well controlled DVT prophylaxis/Hx of PE SCDs; consider Lovenox if pt doesnt require surgical/IR procedure held warfarin for possible IR procedure in AM Case and plan d/w Dr. Dejon Iverson MD PGY-2
[2018-09-23] MEDS: Lactated Ringer's 1,000 ML IV SCH (22:43)
[2018-09-24] MEDS ORDERED: Glucagon Recombinant 1 mg Inj IM PRN (01:21)
[2018-09-24] MEDS ORDERED: Dextrose 50% SYRINGE Inj (50 ml) IV PRN (01:21)
[2018-09-24] MEDS: Lactated Ringer's 1,000 ML IV SCH (06:10)
[2018-09-24 06:24] LABS: HEMOGLOBIN 13.3 g/dL (12.0-18.0); MEAN CELL VOLUME 88.9 fl (80.0-94.0); MEAN CORPUSCULAR HEMOGLOBIN 29.4 pg (27.0-31.0); MEAN CORPUSCULAR HGB CONC 33.1 g/dL (33.0-37.0); RBC 4.54 Mil/uL (4.40-5.90); RED CELL DISTRIBUTION WIDTH 14.5 % (11.5-14.5); WHITE BLOOD COUNT 6.2 K/uL (4.8-10.8)
[2018-09-24 06:48] LABS: INR 1.6; PROTHROMBIN TIME 17.7 Seconds (9.8-13.1)
[2018-09-24 06:50] LABS: PARTIAL THROMBOPLASTIN TIME 33.8 Seconds (25.6-37.1)
[2018-09-24 06:52] LABS: BLOOD UREA NITROGEN 16 mg/dl (9-20); CALCIUM 9.4 mg/dL (8.4-10.2); GFR NON-AFRICAN AMERICAN > 60
[2018-09-24] MEDS ORDERED: metroNIDAZOLE 500mg/100ml NS 100 ML IVPB SCH (07:00)
[2018-09-24 08:28] VITALS: BP 148/68; PULSE 73; RESP 20; TEMP 98.2; O2SAT 98
[2018-09-24] MEDS ORDERED: Ciprofloxacin 400mg/200ml D5W 400 MG/200 ML BAG IVPB SCH (09:00)
[2018-09-24] MEDS ORDERED: Hydrocortisone 2.5% (Rectal) CREAM PR SCH (09:00)
--- NOTE | 2018-09-24 10:08 | CP.PCM.PN ---
Subjective - Date & Time of Evaluation Date of Evaluation: 09/24/18 Time of Evaluation: 10:05 - Subjective Subjective: General Surgery Pt seen and examined this AM. He reports feeling better but still continues to have mild RLQ pain. Additionally pt is requesting to have his nasal spray ordered, that he takes at home for his allergies. Afebrile. (+) flatus, (+) Bm today, brown and formed. Labs and vitals noted. PE Gen: Pt laying in bed in NAD Skin: warm and dry Cardio: s1s2 RRR Lungs: CTA bilaterally Abd: Soft, (+) mild tenderness at RLQ, all incisions from previous surgeries healing well. Extr: (-) calf tenderness bilaterally A/P Abdominal fluid collection s/p lap appy (perforated) and primary left incisional hernia repair last month. As per IR nurse, collection is unable to be drained. Continue abx as per ID, if able to take abx PO then can be discharged home with follow up in the office with Dr. Glez. Will advance diet to regular D/C ivf. Objective - Vital Signs/Intake and Output Vital Signs (last 24 hours): Temp Pulse Resp BP Pulse Ox 98.2 F 73 20 148/68 98 09/24/18 08:27 09/24/18 08:27 09/24/18 08:27 09/24/18 08:27 09/24/18 08:27 - Medications Medications: Current Medications Dextrose (Dextrose 50% Inj) 0 ml IV STAT PRN; Protocol PRN Reason: Hypoglycemia Protocol Dextrose (Glutose 15) 0 gm PO ONCE PRN; Protocol PRN Reason: Hypoglycemia Protocol Fluticasone Propionate (Flonase) 1 spr [facility] Gabapentin (Neurontin) 300 mg PO HS [facility] Last Admin: 09/23/18 22:41 Dose: 300 mg Glucagon (Glucagen Diagnostic Kit) 0 mg IM STAT PRN; Protocol PRN Reason: Hypoglycemia Protocol Hydrocortisone (Anusol-Hc) 1 applic [place] BID [facility] Last Admin: 09/24/18 08:41 Dose: 1 applic Lactated Ringer's (Lactated Ringer's) 1,000 mls @ 125 mls/hr IV .Q8H [facility] Last Admin: 09/24/18 06:10 Dose: 125 mls/hr Ciprofloxacin (Cipro 400mg/200ml Dsw) 400 mg in 200 mls @ 200 mls/hr IVPB Q12 [facility]; Protocol Last Admin: 09/24/18 08:42 Dose: 200 mls/hr Metronidazole (Flagyl 500mg/100ml Ns) 100 mls @ 100 mls/hr IVPB Q8H [facility]; Protocol Last Admin: 09/24/18 06:10 Dose: 100 mls/hr Losartan Potassium (Cozaar) 100 mg PO DAILY [facility] Last Admin: 09/24/18 08:42 Dose: 100 mg Metoprolol Tartrate (Lopressor) 25 mg PO Q12 [facility] Last Admin: 09/24/18 08:43 Dose: 25 mg Morphine Sulfate (Morphine) 1 mg IVP Q4 PRN PRN Reason: Pain, moderate (4-7) Ondansetron HCl (Zofran Tab) 4 mg PO Q8H PRN PRN Reason: Nausea/Vomiting Sertraline HCl (Zoloft) 100 mg PO DAILY [facility] Last Admin: 09/24/18 08:43 Dose: 100 mg - Labs Labs: 09/24/18 05:50 09/24/18 05:50 PT 17.7 Seconds (9.8-13.1) H 09/24/18 05:50 INR 1.6 09/24/18 05:50 APTT 33.8 Seconds (25.6-37.1) 09/24/18 05:50
--- NOTE | 2018-09-24 11:27 | CP.PCM.CON ---
History of Present Illness - History of Present Illness History of Present Illness: 72M presents with abdominal pain. Patient had a lap appendectomy 08/31/18, and went back to OR on 09/05/18 for SBO secondary to LLQ incisional hernia. LLQ has healed Pain mainly in RLQ but mild Denies nausea vomiting diarrhea IR consulted for possible drainage IV Cipro / Flagyl ordered ID consulted for this PMH: DM, HTN, PE on coumadin PSH: Right inguinal hernia repair, left hip surgery, prostate surgery, lap appendectomy, Primary repair of incisional hernia FH: Noncontributory SH: Quit tobacco 36 years ago, social drinker, denies drugs ALL: PCNs Meds: See MAR Past Patient History - Infectious Disease Hx of Infectious Diseases: None - Past Medical History & Family History Past Medical History?: Yes - Past Social History Smoking Status: Former Smoker Alcohol: None Drugs: Denies Home Situation {Lives}: With Family - CARDIAC Hx Cardiac Disorders: Yes (CAD, hypercholesterolemia, HTN) Hx Hypertension: Yes - PULMONARY Hx Respiratory Disorders: Yes (PE) Hx Pulmonary Embolism: Yes - NEUROLOGICAL Hx Neurological Disorder: No - HEENT Hx HEENT Problems: Yes (cataracts) - RENAL Hx Chronic Kidney Disease: No - ENDOCRINE/METABOLIC Hx Endocrine Disorders: Yes (DM) Hx Diabetes Mellitus Type 2: Yes - HEMATOLOGICAL/ONCOLOGICAL Hx Blood Disorders: No - INTEGUMENTARY Hx Dermatological Problems: No - MUSCULOSKELETAL/RHEUMATOLOGICAL Hx Musculoskeletal Disorders: Yes (arthritis) - GASTROINTESTINAL Hx Gastrointestinal Disorders: No - GENITOURINARY/GYNECOLOGICAL Hx Genitourinary Disorders: Yes (prostate) - PSYCHIATRIC Hx Psychophysiologic Disorder: No - SURGICAL HISTORY Hx Tonsillectomy: Yes - ANESTHESIA Hx Anesthesia: Yes Hx Anesthesia Reactions: No Hx Malignant Hyperthermia: No Meds Allergies/Adverse Reactions: Allergies Allergy/AdvReac Type Severity Reaction Status Date / Time Penicillins Allergy RASH Verified 04/18/18 22:17 - Medications Medications: Current Medications Dextrose (Dextrose 50% Inj) 0 ml IV STAT PRN; Protocol PRN Reason: Hypoglycemia Protocol Dextrose (Glutose 15) 0 gm PO ONCE PRN; Protocol PRN Reason: Hypoglycemia Protocol Fluticasone Propionate (Flonase) 1 spr BRETT BID [facility] Gabapentin (Neurontin) 300 mg PO HS [facility] Last Admin: 09/23/18 22:41 Dose: 300 mg Glucagon (Glucagen Diagnostic Kit) 0 mg IM STAT PRN; Protocol PRN Reason: Hypoglycemia Protocol Hydrocortisone (Anusol-Hc) 1 applic [place] BID [facility] Last Admin: 09/24/18 08:41 Dose: 1 applic Ciprofloxacin (Cipro 400mg/200ml Dsw) 400 mg in 200 mls @ 200 mls/hr IVPB Q12 [facility]; Protocol Last Admin: 09/24/18 08:42 Dose: 200 mls/hr Metronidazole (Flagyl 500mg/100ml Ns) 100 mls @ 100 mls/hr IVPB Q8H [facility]; Protocol Last Admin: 09/24/18 06:10 Dose: 100 mls/hr Losartan Potassium (Cozaar) 100 mg PO DAILY [facility] Last Admin: 09/24/18 08:42 Dose: 100 mg Metoprolol Tartrate (Lopressor) 25 mg PO Q12 [facility] Last Admin: 09/24/18 08:43 Dose: 25 mg Morphine Sulfate (Morphine) 1 mg IVP Q4 PRN PRN Reason: Pain, moderate (4-7) Ondansetron HCl (Zofran Tab) 4 mg PO Q8H PRN PRN Reason: Nausea/Vomiting Sertraline HCl (Zoloft) 100 mg PO DAILY [facility] Last Admin: 09/24/18 08:43 Dose: 100 mg Results - Vital Signs Recent Vital Signs: Last Vital Signs Temp 98.2 F 09/24/18 08:27 Pulse 73 09/24/18 08:27 Resp 20 09/24/18 08:27 BP 148/68 09/24/18 08:27 Pulse Ox 98 09/24/18 08:27 - Labs Result Diagrams: 09/24/18 05:50 09/24/18 05:50 Labs: Laboratory Results - last 24 hr 09/23/18 09/23/18 09/23/18 14:24 14:24 14:46 WBC 6.4 RBC 4.38 L Hgb 12.9 Hct 37.8 MCV 86.3 MCH 29.4 MCHC 34.1 RDW 14.2 Plt Count 258 D MPV 7.9 Neut % (Auto) 42.1 L Lymph % (Auto) 44.1 H [place] % (Auto) 11.3 H Eos % (Auto) 2.5 Baso % (Auto) 0.0 Neut # (Auto) 2.7 Lymph # (Auto) 2.8 [place] # (Auto) 0.7 Eos # (Auto) 0.2 Baso # (Auto) 0.0 PT INR APTT Sodium 137 Potassium 4.0 Chloride 104 Carbon Dioxide 26 Anion Gap 11 BUN 18 Creatinine 0.7 L Est GFR ( Amer) > 60 Est GFR (Non-Af Amer) > 60 POC Glucose (mg/dL) Random Glucose 103 Calcium 9.0 Total Bilirubin 0.4 AST 29 ALT 51 Alkaline Phosphatase 109 Total Protein 7.4 Albumin 4.0 Globulin 3.5 Albumin/Globulin Ratio 1.1 Urine Color Yellow Urine Clarity Clear Urine pH 7.0 Ur Specific [place] 1.009 Urine Protein Negative Urine Glucose (UA) Neg Urine Ketones Negative Urine Blood Negative Urine Nitrate Negative Urine Bilirubin Negative Urine Urobilinogen 0.2-1.0 Ur Leukocyte Esterase Neg Urine RBC (Auto) 2 Urine Microscopic WBC 1 Ur Squamous Epith Cells 1 09/23/18 09/24/18 09/24/18 22:10 05:50 05:50 WBC 6.2 RBC 4.54 Hgb 13.3 Hct 40.3 MCV 88.9 D MCH 29.4 MCHC 33.1 RDW 14.5 Plt Count 271 MPV Neut % (Auto) Lymph % (Auto) [place] % (Auto) Eos % (Auto) Baso % (Auto) Neut # (Auto) Lymph # (Auto) [place] # (Auto) Eos # (Auto) Baso # (Auto) PT 17.7 H INR 1.6 APTT 33.8 Sodium Potassium Chloride Carbon Dioxide Anion Gap BUN Creatinine Est GFR ( Amer) Est GFR (Non-Af Amer) POC Glucose (mg/dL) 103 Random Glucose Calcium Total Bilirubin AST ALT Alkaline Phosphatase Total Protein Albumin Globulin Albumin/Globulin Ratio Urine Color Urine Clarity Urine pH Ur Specific [place] Urine Protein Urine Glucose (UA) Urine Ketones Urine Blood Urine Nitrate Urine Bilirubin Urine Urobilinogen Ur Leukocyte Esterase Urine RBC (Auto) Urine Microscopic WBC Ur Squamous Epith Cells 09/24/18 09/24/18 09/24/18 05:50 06:02 11:15 WBC RBC Hgb Hct MCV MCH MCHC RDW Plt Count MPV Neut % (Auto) Lymph % (Auto) [place] % (Auto) Eos % (Auto) Baso % (Auto) Neut # (Auto) Lymph # (Auto) [place] # (Auto) Eos # (Auto) Baso # (Auto) PT INR APTT Sodium 140 Potassium 5.5 H Chloride 104 Carbon Dioxide 29 Anion Gap 13 BUN 16 Creatinine 0.9 Est GFR ( Amer) > 60 Est GFR (Non-Af Amer) > 60 POC Glucose (mg/dL) 103 84 Random Glucose 108 Calcium 9.4 Total Bilirubin AST ALT Alkaline Phosphatase Total Protein Albumin Globulin Albumin/Globulin Ratio Urine Color Urine Clarity Urine pH Ur Specific [place] Urine Protein Urine Glucose (UA) Urine Ketones Urine Blood Urine Nitrate Urine Bilirubin Urine Urobilinogen Ur Leukocyte Esterase Urine RBC (Auto) Urine Microscopic WBC Ur Squamous Epith Cells Assessment & Plan - Assessment and Plan (Free Text) Assessment: RLQ fluid collection of unclear significance- patient not toxic and no rebound or guarding IR consulted for possible drainage with cultures started on empiric IV rx If patient improves he may be d/c'd on oral rx to follow with Surgeon and PMD
--- NOTE | 2018-09-24 12:54 | PCM.IRP ---
History of Present Illness - History of Present Illness History of Present Illness: IR consulted for abscess drainage. CT reviewed. The collection is not large enough for IR drainage. Recommend repeating CT scan later in the week. If collection increases, a drain can then be placed. Thank yoU. Objective - Vital Signs/Intake and Output Vital Signs (last 24 hours): Vital Signs - 24 hr 09/23/18 09/23/18 09/23/18 13:34 19:19 19:19 Temperature 97.9 F 98.1 F Pulse Rate 74 66 Respiratory 18 18 Rate Blood Pressure 132/98 H 154/82 H O2 Sat by Pulse 99 100 99 Oximetry 09/23/18 09/23/18 09/23/18 20:23 21:00 22:42 Temperature 98.1 F 98.2 F Pulse Rate 66 66 66 Respiratory 18 18 Rate Blood Pressure 154/82 H 155/80 H 155/80 H O2 Sat by Pulse 100 Oximetry 09/24/18 09/24/18 00:41 08:27 Temperature 97.9 F 98.2 F Pulse Rate 67 73 Respiratory 19 20 Rate Blood Pressure 138/71 148/68 O2 Sat by Pulse 96 98 Oximetry Intake and Output (last 12 hours): Intake & Output 09/23/18 09/24/18 09/24/18 18:59 06:59 18:59 Weight 154 lb - Medications Medications: Current Medications Dextrose (Dextrose 50% Inj) 0 ml IV STAT PRN; Protocol PRN Reason: Hypoglycemia Protocol Dextrose (Glutose 15) 0 gm PO ONCE PRN; Protocol PRN Reason: Hypoglycemia Protocol Fluticasone Propionate (Flonase) 1 spr BRETT BID [facility] Last Admin: 09/24/18 12:05 Dose: 1 spr Gabapentin (Neurontin) 300 mg PO HS [facility] Last Admin: 09/23/18 22:41 Dose: 300 mg Glucagon (Glucagen Diagnostic Kit) 0 mg IM STAT PRN; Protocol PRN Reason: Hypoglycemia Protocol Hydrocortisone (Anusol-Hc) 1 applic [place] BID [facility] Last Admin: 09/24/18 08:41 Dose: 1 applic Ciprofloxacin (Cipro 400mg/200ml Dsw) 400 mg in 200 mls @ 200 mls/hr IVPB Q12 [facility]; Protocol Last Admin: 09/24/18 08:42 Dose: 200 mls/hr Metronidazole (Flagyl 500mg/100ml Ns) 100 mls @ 100 mls/hr IVPB Q8H [facility]; Protocol Last Admin: 09/24/18 06:10 Dose: 100 mls/hr Losartan Potassium (Cozaar) 100 mg PO DAILY [facility] Last Admin: 09/24/18 08:42 Dose: 100 mg Metoprolol Tartrate (Lopressor) 25 mg PO Q12 [facility] Last Admin: 09/24/18 08:43 Dose: 25 mg Morphine Sulfate (Morphine) 1 mg IVP Q4 PRN PRN Reason: Pain, moderate (4-7) Ondansetron HCl (Zofran Tab) 4 mg PO Q8H PRN PRN Reason: Nausea/Vomiting Sertraline HCl (Zoloft) 100 mg PO DAILY [facility] Last Admin: 09/24/18 08:43 Dose: 100 mg - Labs Labs (last 24 hours): Laboratory Results - last 24 hr 09/23/18 09/23/18 09/23/18 14:24 14:24 14:46 WBC 6.4 RBC 4.38 L Hgb 12.9 Hct 37.8 MCV 86.3 MCH 29.4 MCHC 34.1 RDW 14.2 Plt Count 258 D MPV 7.9 Neut % (Auto) 42.1 L Lymph % (Auto) 44.1 H [place] % (Auto) 11.3 H Eos % (Auto) 2.5 Baso % (Auto) 0.0 Neut # (Auto) 2.7 Lymph # (Auto) 2.8 [place] # (Auto) 0.7 Eos # (Auto) 0.2 Baso # (Auto) 0.0 PT INR APTT Sodium 137 Potassium 4.0 Chloride 104 Carbon Dioxide 26 Anion Gap 11 BUN 18 Creatinine 0.7 L Est GFR ( Amer) > 60 Est GFR (Non-Af Amer) > 60 POC Glucose (mg/dL) Random Glucose 103 Calcium 9.0 Total Bilirubin 0.4 AST 29 ALT 51 Alkaline Phosphatase 109 Total Protein 7.4 Albumin 4.0 Globulin 3.5 Albumin/Globulin Ratio 1.1 Urine Color Yellow Urine Clarity Clear Urine pH 7.0 Ur Specific [place] 1.009 Urine Protein Negative Urine Glucose (UA) Neg Urine Ketones Negative Urine Blood Negative Urine Nitrate Negative Urine Bilirubin Negative Urine Urobilinogen 0.2-1.0 Ur Leukocyte Esterase Neg Urine RBC (Auto) 2 Urine Microscopic WBC 1 Ur Squamous Epith Cells 1 09/23/18 09/24/18 09/24/18 22:10 05:50 05:50 WBC 6.2 RBC 4.54 Hgb 13.3 Hct 40.3 MCV 88.9 D MCH 29.4 MCHC 33.1 RDW 14.5 Plt Count 271 MPV Neut % (Auto) Lymph % (Auto) [place] % (Auto) Eos % (Auto) Baso % (Auto) Neut # (Auto) Lymph # (Auto) [place] # (Auto) Eos # (Auto) Baso # (Auto) PT 17.7 H INR 1.6 APTT 33.8 Sodium Potassium Chloride Carbon Dioxide Anion Gap BUN Creatinine Est GFR ( Amer) Est GFR (Non-Af Amer) POC Glucose (mg/dL) 103 Random Glucose Calcium Total Bilirubin AST ALT Alkaline Phosphatase Total Protein Albumin Globulin Albumin/Globulin Ratio Urine Color Urine Clarity Urine pH Ur Specific [place] Urine Protein Urine Glucose (UA) Urine Ketones Urine Blood Urine Nitrate Urine Bilirubin Urine Urobilinogen Ur Leukocyte Esterase Urine RBC (Auto) Urine Microscopic WBC Ur Squamous Epith Cells 09/24/18 09/24/18 09/24/18 05:50 06:02 11:15 WBC RBC Hgb Hct MCV MCH MCHC RDW Plt Count MPV Neut % (Auto) Lymph % (Auto) [place] % (Auto) Eos % (Auto) Baso % (Auto) Neut # (Auto) Lymph # (Auto) [place] # (Auto) Eos # (Auto) Baso # (Auto) PT INR APTT Sodium 140 Potassium 5.5 H Chloride 104 Carbon Dioxide 29 Anion Gap 13 BUN 16 Creatinine 0.9 Est GFR ( Amer) > 60 Est GFR (Non-Af Amer) > 60 POC Glucose (mg/dL) 103 84 Random Glucose 108 Calcium 9.4 Total Bilirubin AST ALT Alkaline Phosphatase Total Protein Albumin Globulin Albumin/Globulin Ratio Urine Color Urine Clarity Urine pH Ur Specific [place] Urine Protein Urine Glucose (UA) Urine Ketones Urine Blood Urine Nitrate Urine Bilirubin Urine Urobilinogen Ur Leukocyte Esterase Urine RBC (Auto) Urine Microscopic WBC Ur Squamous Epith Cells
--- NOTE | 2018-09-24 14:37 | CP.PCM.DIS ---
Provider - Provider Date of Admission: 09/23/18 19:23 Attending physician: Abdoul Ashford MD Consults: 09/24/18 06:55 General Surgery Consult Routine Comment: Consulting Provider: Trace Glez Consulting Physician: Trace Glez Reason for Consult: abdominal abcess 09/24/18 08:00 Infectious Disease Consult Routine Comment: Consulting Provider: Humberto Villanueva Consulting Physician: Humberto Villanueva Reason for Consult: Abcess. s/p ruptured appy with hernia repair Time Spent in preparation of Discharge (in minutes): 25 Diagnosis - Discharge Diagnosis (1) Abdominal abscess Status: Acute Hospital Course - Lab Results Lab Results: Most Recent Lab Values WBC 6.2 K/uL (4.8-10.8) 09/24/18 05:50 RBC 4.54 Mil/uL (4.40-5.90) 09/24/18 05:50 Hgb 13.3 g/dL (12.0-18.0) 09/24/18 05:50 Hct 40.3 % (35.0-51.0) 09/24/18 05:50 MCV 88.9 fl (80.0-94.0) D 09/24/18 05:50 MCH 29.4 pg (27.0-31.0) 09/24/18 05:50 MCHC 33.1 g/dL (33.0-37.0) 09/24/18 05:50 RDW 14.5 % (11.5-14.5) 09/24/18 05:50 Plt Count 271 K/uL (130-400) 09/24/18 05:50 MPV 7.9 fl (7.2-11.7) 09/23/18 14:24 Neut % (Auto) 42.1 % (50.0-75.0) L 09/23/18 14:24 Lymph % (Auto) 44.1 % (20.0-40.0) H 09/23/18 14:24 [place] % (Auto) 11.3 % (0.0-10.0) H 09/23/18 14:24 Eos % (Auto) 2.5 % (0.0-4.0) 09/23/18 14:24 Baso % (Auto) 0.0 % (0.0-2.0) 09/23/18 14:24 Neut # (Auto) 2.7 K/uL (1.8-7.0) 09/23/18 14:24 Lymph # (Auto) 2.8 K/uL (1.0-4.3) 09/23/18 14:24 [place] # (Auto) 0.7 K/uL (0.0-0.8) 09/23/18 14:24 Eos # (Auto) 0.2 K/uL (0.0-0.7) 09/23/18 14:24 Baso # (Auto) 0.0 K/uL (0.0-0.2) 09/23/18 14:24 PT 17.7 Seconds (9.8-13.1) H 09/24/18 05:50 INR 1.6 09/24/18 05:50 APTT 33.8 Seconds (25.6-37.1) 09/24/18 05:50 Sodium 140 mmol/l (132-148) 09/24/18 05:50 Potassium 5.5 MMOL/L (3.6-5.0) H 09/24/18 05:50 Chloride 104 mmol/L (98-107) 09/24/18 05:50 Carbon Dioxide 29 mmol/L (22-30) 09/24/18 05:50 Anion Gap 13 (10-20) 09/24/18 05:50 BUN 16 mg/dl (9-20) 09/24/18 05:50 Creatinine 0.9 mg/dl (0.8-1.5) 09/24/18 05:50 Est GFR ( Amer) > 60 09/24/18 05:50 Est GFR (Non-Af Amer) > 60 09/24/18 05:50 POC Glucose (mg/dL) 84 mg/dL (65-110) 09/24/18 11:15 Random Glucose 108 mg/dL (75-110) 09/24/18 05:50 Calcium 9.4 mg/dL (8.4-10.2) 09/24/18 05:50 Total Bilirubin 0.4 mg/dl (0.2-1.3) 09/23/18 14:24 AST 29 U/L (17-59) 09/23/18 14:24 ALT 51 U/L (21-72) 09/23/18 14:24 Alkaline Phosphatase 109 U/L (38-126) 09/23/18 14:24 Total Protein 7.4 G/DL (6.3-8.2) 09/23/18 14:24 Albumin 4.0 g/dL (3.5-5.0) 09/23/18 14:24 Globulin 3.5 gm/dL (2.2-3.9) 09/23/18 14:24 Albumin/Globulin Ratio 1.1 (1.0-2.1) 09/23/18 14:24 Urine Color Yellow (YELLOW) 09/23/18 14:46 Urine Clarity Clear (Clear) 09/23/18 14:46 Urine pH 7.0 (5.0-8.0) 09/23/18 14:46 Ur Specific [place] 1.009 (1.003-1.030) 09/23/18 14:46 Urine Protein Negative mg/dL (NEGATIVE) 09/23/18 14:46 Urine Glucose (UA) Neg mg/dL (NEGATIVE) 09/23/18 14:46 Urine Ketones Negative mg/dL (NEGATIVE) 09/23/18 14:46 Urine Blood Negative (NEGATIVE) 09/23/18 14:46 Urine Nitrate Negative (NEGATIVE) 09/23/18 14:46 Urine Bilirubin Negative (NEGATIVE) 09/23/18 14:46 Urine Urobilinogen 0.2-1.0 mg/dL (0.2-1.0) 09/23/18 14:46 Ur Leukocyte Esterase Neg [place]/uL (Negative) 09/23/18 14:46 Urine RBC (Auto) 2 /hpf (0-3) 09/23/18 14:46 Urine Microscopic WBC 1 /hpf (0-5) 09/23/18 14:46 Ur Squamous Epith Cells 1 /hpf (0-5) 09/23/18 14:46 - Hospital Course Hospital Course: 72 y/o M with pmhx of HTN, HLD, DM2 and PE (2012) admitted for RLQ abcess. CT Abdo: Status post appendectomy, apparent 2.2 x 1.8 cm fluid collection with apparent rim enhancement lateral to the suture could represent postoperative fluid collection however developing phlegmon/abscess is also a consideration. Clinical correlation and follow-up is advised. Interval resolution of distal small bowel obstruction and interval repair of left spigelian hernia. Interventional radiology consulted for possible drainage but as per Dr Obrien: CT reviewed. The collection is not large enough for IR drainage. Recommend repeating CT scan later in the week. If collection increases, a drain can then be placed. Patient reports improvement in abdominal pain after IV Cipro and Flaggyl. Patient remained vitally stable throughout admission and medically cleared for outpatient treatment on PO anitbiotics. Follow-up appointment made for Oct 03 at 2:40pm Discharge Exam - Head Exam Head Exam: ATRAUMATIC, NORMAL INSPECTION, NORMOCEPHALIC - Eye Exam Eye Exam: Normal appearance - ENT Exam ENT Exam: Mucous Membranes Moist - Respiratory Exam Respiratory Exam: UNREMARKABLE. absent: Respiratory Distress - Cardiovascular Exam Cardiovascular Exam: REGULAR RHYTHM - GI/Abdominal Exam GI & Abdominal Exam: Soft, Tenderness (RLQ (also mild in LLQ)). absent: Distended, Firm, Guarding - Extremities Exam Extremities exam: normal inspection - Back Exam Back exam: absent: CVA tenderness (L), CVA tenderness (R) - Neurological Exam Neurological exam: Alert, Oriented x3 - Psychiatric Exam Psychiatric exam: Normal Affect, Normal Mood - Skin Skin Exam: Dry, Intact, Normal Color, Warm Discharge Plan - Discharge Medications Prescriptions: Ciprofloxacin HCl [Cipro] 500 mg PO Q12H #20 tablet metroNIDAZOLE [Flagyl] 500 mg PO Q8H #30 tab Simethicone [Mi-Acid] 80 mg PO Q6H PRN #40 ctb PRN Reason: Flatulence - Follow Up Plan Condition: GOOD Disposition: HOME/ ROUTINE Instructions: How to Prevent Surgical Site Infections, Abscess (GEN) Additional Instructions: Follow-up scheduled for [facility] Dr. Banks Oct 03 @ 2:40pm Referrals: [facility] [Provider Group]
== END 2018-09-24 15:02 | disposition home or self-care (01) | DRG 863 ==
LOC: H.ER 13:26 → H.ERHOLD 19:23 → H.MEDSURG1 20:45
PROVIDERS: ADMIT Family Medicine; ATTEND Family Medicine
DX: T81.41XA Infection following a procedure, superficial incisional surgical site, initial encounter (principal); L02.211 Cutaneous abscess of abdominal wall; I25.10 Atherosclerotic heart disease of native coronary artery without angina pectoris; I10 Essential (primary) hypertension; E78.5 Hyperlipidemia, unspecified; E78.00 Pure hypercholesterolemia, unspecified; E11.9 Type 2 diabetes mellitus without complications; Z98.890 Other specified postprocedural states; Z96.642 Presence of left artificial hip joint; Z86.711 Personal history of pulmonary embolism; Z79.01 Long term (current) use of anticoagulants; Z79.84 Long term (current) use of oral hypoglycemic drugs; Z79.1 Long term (current) use of non-steroidal anti-inflammatories (NSAID); Z90.49 Acquired absence of other specified parts of digestive tract; Z87.891 Personal history of nicotine dependence

== ENCOUNTER 2018-12-09 07:05 | Day surgery (SDC) | payer MEDICARE ==
[2018-10-03 15:21] VITALS: BMI 24.0
[2018-12-09] MEDS ORDERED: Lactated Ringer's 500 ML IV ONE (07:37)
[2018-12-09] MEDS ORDERED: Propofol 10 mg/ml Inj (20 ML) ONE (09:19)
[2018-12-09 10:30] VITALS: TEMP 97.8
[2018-12-09 10:31] VITALS: RESP 17
[2018-12-09 10:32] VITALS: BP 121/66; PULSE 67; O2SAT 100
== END 2018-12-09 10:30 | disposition home or self-care (01) ==
LOC: H.ENDO 07:05
PROVIDERS: ATTEND Internal Medicine Gastroenterology
DX: Z12.11 Encounter for screening for malignant neoplasm of colon (principal); E11.9 Type 2 diabetes mellitus without complications; I10 Essential (primary) hypertension; K64.8 Other hemorrhoids
CPT/HCPCS: 45378; J2704; J7120